=== PATIENT | female | born 1995 | race Caucasian/White ===

== ENCOUNTER 2020-01-01 05:29 | Outpatient (CLI) | payer BC, SELFPAY ==
[2020-01-01 19:19] LABS: SARS-CoV-2 RNA PCR Negative
== END 2020-01-01 05:30 | disposition home or self-care (01) ==
LOC: ANHCOVIDDT 05:30
PROVIDERS: Visit Provider Obstetrics & Gynecology
DX: Z20.828 Contact with and (suspected) exposure to other viral communicable diseases (principal)
CPT/HCPCS: C9803; U0003

== ENCOUNTER 2020-01-02 04:11 | Day surgery (SDC) | payer BC, SELFPAY ==
--- NOTE | 2019-12-31 19:21 | HP_ITS ---
DATE OF SERVICE: 01/02/2020 HISTORY OF PRESENT ILLNESS: The patient is 24 years old G2, P1-0-0-1 at 10 weeks' gestation who came in for a routine early ultrasound last week who was found to have an 8-week 4-day fetus with no heart rate. She was counseled about options at that point and she is wanting to have a repeat ultrasound to confirm, which was done on December 30, which showed an 8-week 3-day fetus with no heart rate. She has had no bleeding since her periods, has no pain. No other complaints. MEDICAL HISTORY: History of preeclampsia with her 1st child. Otherwise, no medical history. MEDICATIONS: No current medications. ALLERGIES: NO KNOWN DRUG ALLERGIES. PAST SURGICAL HISTORY: x1. SOCIAL HISTORY: Negative for tobacco or drug use. She occasionally drinks alcohol. REVIEW OF SYSTEMS: Negative. PHYSICAL EXAMINATION: VITAL SIGNS: Her weight is 202 pounds. Blood pressure 118/79. GENERAL: No apparent distress. HEART: Regular rate and rhythm. LUNGS: Clear to auscultation. ABDOMEN: Soft, nontender, nondistended. She is nontender with no edema. PELVIC EXAM: Uterus is mildly enlarged, nontender, mobile, smooth. Adnexa nontender with no palpable mass. ASSESSMENT AND PLAN: Missed . She was counseled about options including expectant management, medical induction of miscarriage or surgical evacuation of the uterus. She opted and signed consent for suction, dilation and curettage after the risks, benefits, complications, and alternatives were discussed. Her blood type is A positive, so she does not need RhoGAM. D I MT: Enrique
[2020-01-01 08:43] VITALS: BMI 37.8
--- NOTE | 2020-01-02 08:38 | WPDANESEPPF ---
Anes - Initial Pre Proc Eval Procedure: Operation Date: 01/02/20 10:00 Proposed Procedures p Suction Dilation And Curettage - Fidelia Mansfield MD Date/Time: 01/02/20 08:38 Surgeon: Fidelia Mansfield MD Pre Op Diagnosis: Missed Patient Data Age: 24 Gender: F Height: 5 ft 1 in Weight: 90.72 kg Allergies Allergy/AdvReac Type Severity Reaction Status Date / Time No Known Allergies Allergy Verified 01/01/20 08:43 Home Medications Medication Instructions Recorded Confirmed Type No Home Medications 01/01/20 01/01/20 History Laboratory Tests 01/01/20 09:50 SARS-CoV-2 RNA (RT-PCR) Negative Patient hx anesthesia problems: none Family hx anesthesia problems: none PMFSH Social History Social History Smoking status: Never smoker Spiritual care concerns: No Anes - Eval Final PreProcedure Day of Procedure 01/02/20 08:38 Patient weight: obese Heart: regular rate and rhythm Lungs: clear to auscultation Airway: Mallampati scale class II Neurological: alert and oriented Last oral intake: >/= 8 hours ASA classification: II Emergent: no Anesthetic plan: proceed Anesthesia type and monitoring: general GIVS and standard monitoring Informed Consent: The patient's anesthetic plan and its attendant risks and benefits were discussed with the patient/family/POA. Questions were solicited and answers provided to the satisfaction of the patient/family/POA.
[2020-01-02] MEDS: LACTATED RINGERS 1,000 ML 30 ML IV CONT (08:45)
--- NOTE | 2020-01-02 09:55 | WPDHPUPDATE1 ---
History and Physical Update Update Date/Time: 01/02/20 09:55 History and Physical has been reviewed, including an updated exam of the patient. There are NO changes in the patient's condition. Risks, benefits, and alternatives have been discussed and questions answered. Patient agrees to proceed with procedure.
--- NOTE | 2020-01-02 10:04 | PM.OP ---
Procedure Note - Brief Procedure Note - Brief Date of procedure: 01/02/20 Pre-op diagnosis: Missed Post-op diagnosis: same Procedure performed: Suction D&C Anesthesia: MAC Surgeon: Fidelia Mansfield MD Estimated blood loss (mL): 200 Drains: No Packing: No Pathology: yes Complications: No immediate complications Condition: stable Disposition: PACU Findings: Moderate amounts POCs
[2020-01-02] MEDS: KETOROLAC 30 MG/ML VIAL (*BKC) IV PUSH (10:06)
[2020-01-02 10:27] VITALS: BP 123/51; PULSE 84; RESP 20; O2SAT 99
[2020-01-02 10:50] VITALS: BP 106/64; PULSE 53; RESP 20
[2020-01-02 11:15] VITALS: BP 113/57; PULSE 82; RESP 18
--- NOTE | 2020-01-02 12:05 | OP_ITS ---
DATE OF PROCEDURE: 01/02/2020 PREOPERATIVE DIAGNOSIS: Missed . POSTOPERATIVE DIAGNOSIS: Missed . PROCEDURE PERFORMED: Suction dilation and curettage. ANESTHESIA: Conscious sedation. ESTIMATED BLOOD LOSS: 200 mL. COMPLICATIONS: None. FINDINGS: Moderate amounts of products of conception. Normal cervix and vagina. INDICATIONS: A 24-year-old, G2, P 1-0-0-1 at approximately 10 weeks' gestation came in last week for a routine early ultrasound and was found to have an 8-week 4-day fetus with no heart rate. She wanted to have the ultrasound repeated, which was done on December 30 and still showed an 8-week 3-day fetus with no heart rate. She was given options including expectant management, medication, or surgical evacuation of the uterus. She opted and signed consent for D and C after the risks, benefits, complications, and alternatives were discussed. DESCRIPTION OF PROCEDURE: She was taken to the operating room where she was sedated and placed in the dorsal lithotomy position. A speculum was placed and then, anterior lip of the cervix was grasped with a single-tooth tenaculum. The cervix was dilated to allow passage of a #9 curved suction curette. Several passes were made to evacuate the contents of the uterus. A sharp curettage was done once to loosen any further tissue and another pass was made with the suction curette with no tissue and minimal blood obtained. The tenaculum was removed from the cervix. Both tenaculum sites were bleeding slightly so pressure was held with ring forceps and Allis clamp until excellent hemostasis was assured. All instruments were then removed from the vagina. She tolerated the procedure well. Sponge, lap, and instrument counts were correct x2 and she was taken to the recovery room in stable condition. D I MT: [facility]
== END 2020-01-02 11:30 | disposition home or self-care (01) ==
PROVIDERS: Visit Provider Obstetrics & Gynecology
PROC: (CPT 59820; principal; 2020-01-02 10:00)
DX: O02.1 Missed abortion (principal)
CPT/HCPCS: 59820; 87635; 88305; C9803; J1885; J2250; J2704; J3010; J7120; U0003

== ENCOUNTER 2021-02-25 09:43 | Outpatient (CLI) | payer BC, SELFPAY ==
--- NOTE | ~2021-02-25 | US_ITS ---
EXAMINATION: US OB <=14 wk fetus w TV DATE: 02/25/2021 10:39 INDICATION: Establish viability and dating of first trimester TECHNIQUE: Real-time pelvic ultrasound utilizing both a transvaginal and transabdominal probe was pe rformed. The interpreting radiologist was not present for the study. COMPARISON: None. FINDINGS: The uterus measures 11.0 x 6.2 x 5.4 cm. There is an intrauterine gestational sac. A yolk sac and fe kaleb pole are identified. The crown rump length measures 7 mm, which correlates with an estimated gest ational age of 6 weeks and 4 days. heart motion is identified measuring 138 beats per minute (b pm) by M-mode Doppler. The right ovary measures 3.7 x 2.6 x 2.2 cm. Thick-walled centrally anechoic 1.9 cm corpus luteum cys t in the right ovary. A few additional anechoic cysts in the right ovary, the largest measuring 1.8 c m with subtle internalThe echoes suggesting the internal lacelike pattern of a hemorrhagic cyst. Left ovary measures 2.9 x 1.7 x 1.9 cm. Vascular flow with arterial waveforms identified in both ovaries on color Doppler. There is no free fluid in the pelvis. IMPRESSION: 1. Single living fetus with heart rate of 138 bpm. 2. Gestational age by ultrasound of 6 weeks 4 day(s) +/- 4 day(s) with ultrasound estimated date of delivery (NORMA) of 10/17/2021. Reviewed, dictated and finalized at location B. IMPRESSION: 1. Single living fetus with heart rate of 138 bpm. 2. Gestational age by ultrasound of 6 weeks 4 day(s) +/- 4 day(s) with ultraso und estimated date of delivery (NORMA) of 10/17/2021.
== END 2021-02-25 09:44 | disposition home or self-care (01) ==
PROVIDERS: Visit Provider Obstetrics & Gynecology
DX: O20.0 Threatened abortion (principal); Z3A.01 Less than 8 weeks gestation of pregnancy
CPT/HCPCS: 76801; 76817

== ENCOUNTER 2021-03-27 15:17 | Outpatient (CLI) | payer SELFPAY ==
--- NOTE | ~2021-03-27 | US_ITS ---
EXAMINATION: US OB <= 14 weeks fetus DATE: 03/27/2021 15:51 INDICATION: One day of vaginal spotting during first trimester of TECHNIQUE: Real-time pelvic ultrasound utilizing both a transvaginal and transabdominal probe was pe rformed. The interpreting radiologist was not present for the study. COMPARISON: None. FINDINGS: The uterus measures 12.3 x 8.8 x 6.7 cm. There is an intrauterine gestational sac. A yolk sac and fe kaleb pole are identified. The crown rump length measures 4.1 cm, which correlates with an estimated ge stational age of 11 weeks and 0 days. heart motion is identified measuring 175 beats per minute (bpm) by M-mode Doppler. The right and left ovaries are not visualized. There is no free fluid in the pelvis. IMPRESSION: 1. Single living fetus with heart rate of 175 bpm. 2. Markham-rump length of 4.1 cm which is concordant within one day of the previously estimated gestati onal age by ultrasound of 10 weeks 6 day(s) with ultrasound estimated date of delivery (NORMA) of 2019 based upon earliest ultrasound performed at this institution on 02/25/2021. Reviewed, dictated and finalized at location A. IMPRESSION: 1. Single living fetus with heart rate of 175 bpm. 2. Markham-rump length of 4.1 cm which is concordant within one day of the previo usly estimated gestational age by ultrasound of 10 weeks 6 day(s) with ultrasou nd estimated date of delivery (NORMA) of 10/18/2019 based upon earliest ultrasound performed at this institution on 02/25/2021.
== END 2021-03-27 15:18 | disposition home or self-care (01) ==
LOC: ANHIMG 15:20
PROVIDERS: PCP Internal Medicine; Visit Provider Obstetrics & Gynecology
DX: O20.0 Threatened abortion (principal); Z3A.00 Weeks of gestation of pregnancy not specified
CPT/HCPCS: 76801

== ENCOUNTER 2021-03-31 10:14 | Outpatient (CLI) | payer BC, SELFPAY ==
[2021-03-31 18:23] LABS: Basophils Percent Auto 0.3 % (0.2-1.2); Eosinophils Absolute Auto 0.2 K/mm3 (0-0.3); Eosinophils Percent Auto 1.8 % (0-4.4); Hemoglobin 10.6 g/dL (12.0-15.0); Immature Granulocyte Absolute 0.02 K/mm3 (0.00-0.031); Immature Granulocyte Percent A 0.2 % (0-0.5); Lymphocytes Percent Auto 28.8 % (18.3-44.2); Mean Corpuscular HGB Conc 32.1 g/dl (32-36); Mean Corpuscular Hemoglobin 29.3 pg (26-34); Mean Corpuscular Volume 91.2 fl (80-100); Mean Platelet Volume 12.2 fl (7.4-10.4); Monocytes Absolute Auto 0.8 K/mm3 (0.1-0.6); Monocytes Percent Auto 8.3 % (2.6-8.5); Neutrophils Absolute Auto 5.5 K/mm3 (1.3-6.7); Neutrophils Percent Auto 60.6 % (45.5-73.1); Platelet Count Result 298 k/mm3 (150-375); Red Blood Count 3.62 M/mm3 (4.2-5.4); Red Cell Distribution Width 16.8 % (11.5-14.5)
[2021-03-31 18:47] LABS: Vitamin D 25 Hydroxy 14.9 ng/mL
[2021-03-31 18:50] LABS: Add Urine Microscopic? YES; Appearance Urine Clear (Clear); Bacteria Urine Trace /hpf; Bilirubin Urine Negative (Negative); Blood Urine Negative (Negative); Calcium Oxalate Crystals Urine Present /hpf; Color Urine Yellow (Yellow); Glucose Urine UA Negative (Negative); Ketones Urine Negative (Negative); Leukocyte Esterase Ur Negative LEU/UL (NEGATIVE); Mucus Urine Few /lpf; Nitrate Urine Negative (Negative); Protein Urine 1+ mg/dL (Negative); Specific Grav Ur 1.026 (1.001-1.035); Squamous Epithelial Cell Urine Many /hpf (Few); Urobilinogen Urine Negative mg/dL (<2.0); WBC Urine 0-3 /hpf (0-3)
[2021-03-31 19:05] LABS: Hepatitis B Surface Antigen Negative (Negative); Rubella IgG Antibody 5.1 IU/ML
[2021-03-31 19:13] LABS: HIV 1/2 Ab P24 Ag Result Negative (Negative)
[2021-03-31 19:20] LABS: Hepatitis C Virus Antibody Negative (Negative)
[2021-04-01 07:50] LABS: Rapid Plasma Reagin Non-Reactive (NonReactive)
[2021-04-05 10:40] LABS: Hematocrit 31.9 % (35.0-45.0); Hemoglobin 10.9 g/dL (11.7-15.5); MCV 93.5 fL (80.0-100.0); RDW 17.2 % (11.0-15.0); Red Blood Cell Count 3.41 Mill/uL (3.80-5.10)
== END 2021-03-31 10:15 | disposition home or self-care (01) ==
PROVIDERS: Visit Provider Obstetrics & Gynecology
DX: Z34.91 Encounter for supervision of normal pregnancy, unspecified, first trimester (principal); Z3A.11 11 weeks gestation of pregnancy
CPT/HCPCS: 36415; 81001; 82306; 83021; 84443; 85025; 86592; 86703; 86762; 86787; 86803; 86850; 86900; 86901; 87077; 87086; 87088; 87186; 87340; G0432

== ENCOUNTER 2021-04-13 10:13 | Outpatient (CLI) | payer SELFPAY ==
--- NOTE | ~2021-04-13 | US_ITS ---
EXAMINATION: US OB <= 14 weeks fetus DATE: 04/13/2021 10:56 INDICATION: Threatened . TECHNIQUE: Real-time transabdominal and transvaginal pelvic ultrasound was performed. COMPARISON: Ultrasound 03/27/2021 FINDINGS: EXAMINATION: US OB <= 14 weeks fetus DATE: 04/13/2021 10:56 INDICATION: Threatened . TECHNIQUE: Real-time transabdominal ultrasound of the pelvis was performed. COMPARISON: ultrasound 03/27/21, 02/25/21 FINDINGS: There is a single living fetus in breech presentation. The placenta is anterior. heart rate is 158 beats per minute (bpm). The amniotic fluid volume is subjectively normal. The right ovary measur es 3.3 x 2.6 x 2.4 cm. The left ovary is not visualized. The following biometric data were obtained: [place]-rump length (CRL): 7.7 cm; biparietal diameter (BPD): 2.6 cm; femur length (FL): 1.1 cm. These measurements are concordant. As single measurements, these parameters are each equal to the following estimated gestational ages: CRL: 13 weeks 5 days. BPD: 14 weeks 3 days. FL: 13 weeks 1 days. estimated gestational age based solely on measurements from this exam is 13 weeks 5 days +/- 1 weeks 0 days. IMPRESSION: 1. Single living fetus in breech presentation. 2. Estimated date of delivery of 10/17/2021 based on the ultrasound from 02/25/2021. Reviewed, dictated and finalized at location A. IMPRESSION: 1. Single living fetus in breech presentation. 2. Estimated date of delivery of 10/17/2021 based on the ultrasound from 021.
== END 2021-04-13 10:14 ==
PROVIDERS: Visit Provider Obstetrics & Gynecology
DX: O20.0 Threatened abortion (principal); Z3A.13 13 weeks gestation of pregnancy
CPT/HCPCS: 76801

== ENCOUNTER 2021-05-18 10:47 | Outpatient (CLI) | payer OTHER, SELFPAY ==
--- NOTE | ~2021-05-18 | US_ITS ---
US OB /maternal detail DATE: 05/18/2021 12:07 INDICATION: anatomy screen TECHNIQUE: Real-time imaging and Doppler analysis COMPARISON: 04/13/2021 obstetrical ultrasound FINDINGS: Live barrow intrauterine gestation, fetus in transverse lie and variable position during the examination. Anterior placenta, lower margin 5 cm above the internal os. Cervical length measures 3.0 cm. Subjectively normal amount of amniotic fluid. No cerebral ventriculomegaly. The cerebellum appears normal. Normal nuchal fold. sp ine appears intact. The diaphragm appears normal. heart rate of 159 bpm. Four-chamber fet al heart with normal left and right ventricular outflow tracts. Three vessel umbilical cord with nor mal appearing insertion at abdominal wall. No hydronephrosis. Fluid is demonstrated in stomac h and urinary bladder. BPD 4.48 cm; 19 weeks 4 days Head circumference 17.19 cm; 19 weeks 5 days Abdominal circumference 14.72 cm; 20 weeks Femur length 2.85 cm; 18 weeks 5 days Composite age by Hadlock formula: 19 weeks 4 days +/- 1 week 3 days. NORMA is 10/08/2021. Femur length/head circumference 16.57, within normal range of 16.50-90.16 Head circumference/abdominal circumference 1.17, within normal range of 1.08, 101.26 IMPRESSION: Normal anatomy screen Reviewed, dictated and finalized at Location A. Reviewed, dictated and finalized at location A. ATING MACHINE TYPIST IMPRESSION: Normal anatomy screen
== END 2021-05-18 10:48 | disposition home or self-care (01) ==
LOC: ANHIMG 10:48
PROVIDERS: PCP Internal Medicine; Visit Provider Obstetrics & Gynecology
DX: Z36.3 Encounter for antenatal screening for malformations (principal)
CPT/HCPCS: 76805

== ENCOUNTER 2021-05-25 11:45 | Outpatient (CLI) | payer OTHER, SELFPAY ==
[2021-05-25 19:46] LABS: Free T4 Free Thyroxine 0.79 ng/mL (0.78-2.19)
== END 2021-05-25 11:46 | disposition home or self-care (01) ==
LOC: ANHBWCLAB 11:46
PROVIDERS: PCP Internal Medicine; Visit Provider Obstetrics & Gynecology
DX: L65.9 Nonscarring hair loss, unspecified (principal)
CPT/HCPCS: 36415; 84439; 84443

== ENCOUNTER 2021-06-12 09:12 | Observation (INO) | payer OTHER, SELFPAY ==
[2021-06-12 09:38] VITALS: BP 114/59; PULSE 97
--- NOTE | 2021-06-12 09:56 | OBADM ---
This patient, Aliyah Will, admitted to the OB room OB Post 116 for observation. Patient is oriented to hospital policies and general routines including ID bracelet, bed and alarms, pain management, procedures, bathroom and other care routines, personal items, smoking policy, room service/diet, call light and visiting hours. Patient is encouraged to report perceived risks to care and to ask questions if she does not understand what she is told or what she should do.
[2021-06-12 09:58] VITALS: BMI 40.6
[2021-06-12 09:59] LABS: Add Urine Microscopic? NO; Appearance Urine Clear (Clear); Bilirubin Urine Negative (Negative); Blood Urine Negative (Negative); Color Urine Yellow (Yellow); Glucose Urine UA Negative (Negative); Ketones Urine Negative (Negative); Leukocyte Esterase Ur Negative LEU/UL (NEGATIVE); Nitrate Urine Negative (Negative); Protein Urine Negative (Negative); Urobilinogen Urine Negative mg/dL (<2.0)
--- NOTE | 2021-07-09 17:35 | PM.OBTRLD ---
OB - Triage/Final Diagnosis Visit Information Comments/Additional reasons for admission: I have assessed the risk for this patient, Aliyah Will, and determined that she would benefit from observation care. Evaluation Laboratory results: Laboratory Tests 06/12/21 09:49 Urine Color Yellow Urine Appearance Clear Urine pH 7.0 Ur Specific Hewett 1.020 Urine Protein Negative Urine Glucose (UA) Negative Urine Ketones Negative Ur Blood (Man) Negative Urine Nitrate Negative Urine Bilirubin Negative Urine Urobilinogen Negative Ur Leukocyte Esterase Negative Final Diagnosis (1) Back pain affecting : Code(s): O99.891 - Other specified diseases and conditions complicating ; M54.9 - Dorsalgia, unspecified Status: Acute
== END 2021-06-12 10:47 | disposition home or self-care (01) ==
PROVIDERS: Admitting Provider Student in an Organized Health Care Education/Training Program; PCP Internal Medicine; Visit Provider Student in an Organized Health Care Education/Training Program
DX: O99.891 Other specified diseases and conditions complicating pregnancy (principal); M54.9 Dorsalgia, unspecified; Z3A.22 22 weeks gestation of pregnancy
CPT/HCPCS: 81003; 87086; G0378; G0379

== ENCOUNTER 2021-07-22 10:50 | Outpatient (CLI) | payer OTHER, SELFPAY ==
[2021-07-22 20:06] LABS: Hematocrit 30.7 % (37.0-47.0); Hemoglobin 9.9 g/dL (12.0-15.0); Mean Corpuscular HGB Conc 32.2 g/dl (32-36); Mean Corpuscular Hemoglobin 29.3 pg (26-34); Mean Corpuscular Volume 90.8 fl (80-100); Mean Platelet Volume 11.1 fl (7.4-10.4); Platelet Count Result 323 k/mm3 (150-375); Red Blood Count 3.38 M/mm3 (4.2-5.4); Red Cell Distribution Width 14.1 % (11.5-14.5); White Blood Count 9.8 K/mm3 (4.5-10.0)
[2021-07-22 20:19] LABS: Glucose 1 Hour PP 50gm Dose 193 mg/dL
== END 2021-07-22 10:51 | disposition home or self-care (01) ==
PROVIDERS: Visit Provider Student in an Organized Health Care Education/Training Program
DX: Z34.92 Encounter for supervision of normal pregnancy, unspecified, second trimester (principal); Z3A.27 27 weeks gestation of pregnancy
CPT/HCPCS: 36415; 82947; 85027

== ENCOUNTER 2021-07-29 09:54 | Outpatient (CLI) | payer OTHER, SELFPAY ==
[2021-07-29 10:39] LABS: Glucose Fasting Gestational 94 mg/dL (>/=95)
[2021-07-29 12:16] LABS: Glucose 1 Hour Gest 219 mg/dL (>/=180)
[2021-07-29 14:20] LABS: Glucose 2 Hour Gest 187 mg/dL (>/= 155)
[2021-07-29 14:53] LABS: Glucose 3 Hour Gest 122 mg/dL (>/=140)
== END 2021-07-29 09:55 | disposition home or self-care (01) ==
LOC: ANHLAB 09:56
PROVIDERS: PCP Internal Medicine; Visit Provider Student in an Organized Health Care Education/Training Program
DX: R73.09 Other abnormal glucose (principal)
CPT/HCPCS: 36415; 82951; 82952

== ENCOUNTER 2021-08-11 08:00 | Outpatient (RCR) | payer OTHER, SELFPAY ==
[2021-08-11 07:47] VITALS: BMI 42.6
[2021-08-11 07:49] VITALS: BMI 42.6
== END 2021-10-14 14:25 | disposition home or self-care (01) ==
LOC: ANHDMC 08:00
PROVIDERS: PCP Internal Medicine; Visit Provider Obstetrics & Gynecology
DX: O24.419 Gestational diabetes mellitus in pregnancy, unspecified control (principal); Z71.89 Other specified counseling; Z71.3 Dietary counseling and surveillance
CPT/HCPCS: 97802; G0108

== ENCOUNTER 2021-08-12 11:03 | Outpatient (CLI) | payer OTHER, SELFPAY ==
[2021-08-12 20:44] LABS: HIV 1/2 Ab P24 Ag Result Negative (Negative)
[2021-08-13 06:08] LABS: Rapid Plasma Reagin Non-Reactive (NonReactive)
== END 2021-08-12 11:04 | disposition home or self-care (01) ==
PROVIDERS: PCP Internal Medicine; Visit Provider Obstetrics & Gynecology
DX: Z34.92 Encounter for supervision of normal pregnancy, unspecified, second trimester (principal); Z3A.23 23 weeks gestation of pregnancy
CPT/HCPCS: 36415; 86592; 86703; G0432

== ENCOUNTER 2021-08-24 02:01 | Outpatient (CLI) | payer OTHER, SELFPAY ==
[2021-08-24 02:18] VITALS: BP 130/68; PULSE 86
[2021-08-24 02:48] VITALS: BP 130/68
== END 2021-08-24 02:47 | disposition home or self-care (01) ==
LOC: ANHOBOP 02:04 → ANHOBPP 02:09
PROVIDERS: PCP Internal Medicine; Visit Provider Obstetrics & Gynecology
DX: Z34.83 Encounter for supervision of other normal pregnancy, third trimester (principal); Z3A.39 39 weeks gestation of pregnancy
CPT/HCPCS: 59025; 84112; 99199

== ENCOUNTER 2021-09-22 10:49 | Outpatient (RCR) | payer OTHER, SELFPAY ==
--- NOTE | 2021-07-20 01:52 | PC.NURSE ---
2008- Called Dr. Larry- pt came in c/o DFM since 2am. she states that she last felt baby at 2am and went to sleep until 3pm today. 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 pt hasn't eaten or drank since waking up. FHT reviewed. pt feeling baby move alot and audible on monitor after eating and drinking. order to d/c home with instructions on importance of fluid intake and good nutrition. pt to f/u at regular scheduled appt on with Dr. Mansfield or back here is further concerns.
[2021-08-18 10:58] VITALS: BP 111/67; PULSE 91
[2021-08-25 13:15] VITALS: BP 123/58; PULSE 87
[2021-09-01 09:49] VITALS: BP 136/65; PULSE 90
--- NOTE | 2021-09-01 10:39 | PC.NURSE ---
Dr. Mansfield informed pt hasn't felt as much movement since yesterday. NST was reactive and BPP was 8/8 with subjectively normal amount of amniotic fluid. Pt did feel some movement while in U/S and has felt 2 movements in the last 5 mins. OK to discharge pt to home with instructions that if she should have any further decrease in movement to return to L&D. Pt verbalizes understanding.
[2021-09-08] MEDS: TETANUS,DIPHTHERIA,AC PERTUSSIS ADULT (0.5 ML) BOOSTRIX IM (11:45)
[2021-09-08 12:09] VITALS: BP 128/67; PULSE 94
[2021-09-15 12:30] VITALS: BP 123/53; PULSE 90
--- NOTE | ~2021-09-22 | US_ITS ---
EXAMINATION: US OB follow up w BPP DATE: 09/08/2021 12:26 INDICATION: Gestational diabetes, biophysical profile and growth assessment during third trimes ter TECHNIQUE: Real-time pelvic ultrasound was performed. The interpreting radiologist was not present fo r the study. COMPARISON: None. FINDINGS: There is a single living fetus in vertex presentation. The placenta is anterior. heart rate is 155 beats per minute (bpm). The amniotic fluid index is 13.4 cm which is normal (normal range: 8.1 cm to 24.8 cm). Biophysical profile performed by the technologist: breathing (30 sec sustained breathing in 30 minutes): 2 out of 2 movement (3 gross body movements in 30 minutes): 2 out of 2 tone (one episode of imkenkj-tkzybiumy-hjnjnnm limb movement): 2 out of 2 Amniotic fluid pocket (2 cm): 2 out of 2 Total score: 8 out of 8 The following biometric data were obtained: Biparietal diameter (BPD): 9.1 cm; head circumference (HC): 32.3 cm; abdominal circumference (AC): 32 .2 cm; femur length (FL): 6.5 cm. The femoral length to abdominal circumference ratio is greater than two standard deviations below the mean These measurements are otherwise concordant. Estimated weight is 2887 g +/- 433 g, which correlates with the 86th percentile when 10/15/2021 is used as estimated date of delivery. As single measurements, these parameters are each equal to the following estimated gestational ages w ith ranges of +/- 2 standard deviations: BPD: 37 weeks 0 days +/- 3 weeks 1 days. HC: 36 weeks 4 days +/- 2 weeks 5 days. AC: 37 weeks 1 days +/- 3 weeks 0 days. FL: 33 weeks 5 days +/- 3 weeks 0 days. estimated gestational age based solely on measurements from this exam is 36 weeks 1 days +/- 2 weeks 4 days. IMPRESSION: 1. Single living fetus in vertex presentation. 2. Biophysical profile 8 out of 8. 3. Normal amniotic fluid index. 4. Estimated weight is 2887 g +/- 433 g, which correlates with the 86th percentile when 10/16/19 22 is used as estimated date of delivery. 5. Femoral length to abdominal circumference ratio is within two standard deviations below the mean. Reviewed, dictated and finalized at location B. HAIRER IMPRESSION: 1. Single living fetus in vertex presentation. 2. Biophysical profile 8 out of 8. 3. Normal amniotic fluid index. 4. Estimated weight is 2887 g +/- 433 g, which correlates with the 86th p ercentile when 10/15/2021 is used as estimated date of delivery. 5. Femoral length to abdominal circumference ratio is within two standard devia tions below the mean.
--- NOTE | ~2021-09-22 | US_ITS ---
EXAMINATION: US OB limited w BPP DATE: 09/15/2021 12:15 INDICATION: Gestational diabetes during third trimester . Assess amniotic fluid index. TECHNIQUE: Real-time pelvic ultrasound was performed. The interpreting radiologist was not present fo r the study. COMPARISON: 09/08/2021 FINDINGS: There is a single living fetus in vertex presentation. The placenta is anterior. heart rate is 141 beats per minute (bpm). Amniotic fluid index of 16.4 cm which is normal. (5th%-95%: 7.9-24.9 cm at 35 weeks estimated gestational age). Biophysical profile performed by the technologist: breathing (30 sec sustained breathing in 30 minutes): 2 out of 2 movement (3 gross body movements in 30 minutes): 2 out of 2 tone (one episode of brxrgvg-dlkdcaugd-settpfs limb movement): 2 out of 2 Amniotic fluid pocket (2 cm): 2 out of 2 Total score: 8 out of 8 IMPRESSION: 1. Single living fetus in vertex presentation with heart rate of 141 bpm. 2. Biophysical profile 8 out of 8. 3. Normal amniotic fluid index of 16.4 cm. Reviewed, dictated and finalized at location A.
--- NOTE | ~2021-09-22 | US_ITS ---
EXAMINATION: US OB BPP wo non-stress EXAM DATE: 09/01/2021 10:22 INDICATION: GDM 3rd trimester. TECHNIQUE: Pelvic obstetrical transabdominal sonogram was performed by a technologist. There are mu ltiple grayscale and Doppler images available for interpretation. Comparison is made to prior examina tion from 08/25/2021. FINDINGS: There is a single fetus identified in vertex presentation with a heart rate of 159 beats pe r minute. The placenta is located in the anterior position. There is no sonographic evidence of retr oplacental hemorrhage identified. There is subjectively expected amount of amniotic fluid. BIOPHYSICAL PROFILE (performed by the technologist) breathing (30 sec sustained breathing in 30 minutes): 2 out of 2 movement (3 gross body movements in 30 minutes): 2 out of 2 tone (one episode of rxzirqd-cnfmcdxap-lyhxhvg limb movement): 2 out of 2 Amniotic fluid pocket (2 cm): 2 out of 2 Total score: 8 out of 8 IMPRESSION: 1. Single fetus with heart rate of 159 bpm. 2. Normal biophysical profile score of 8 out of 8. Reviewed, dictated and finalized at location B. NER TRANSPORT TECHNICIAN
--- NOTE | ~2021-09-22 | US_ITS ---
EXAMINATION: US OB follow up w BPP DATE: 08/18/2021 10:46 INDICATION: Gestational diabetes, third trimester TECHNIQUE: Real-time pelvic ultrasound was performed. The interpreting radiologist was not present fo r the study. COMPARISON: None. FINDINGS: There is a single living fetus in vertex presentation. The placenta is anterior. heart rate is 140 beats per minute (bpm). The amniotic fluid index is 11 cm which is normal. Biophysical profile performed by the technologist: breathing (30 sec sustained breathing in 30 minutes): 2 out of 2 movement (3 gross body movements in 30 minutes): 2 out of 2 tone (one episode of xxzcato-shkumyjco-oxpqvix limb movement): 2 out of 2 Amniotic fluid pocket (2 cm): 2 out of 2 Total score: 8 out of 8 The following biometric data were obtained: Biparietal diameter (BPD): 8.1 cm; head circumference (HC): 29.3 cm; abdominal circumference (AC): 30 .9 cm; femur length (FL): 6.3 cm. These measurements are concordant. Estimated weight is 2278 g +/- 341 g, which correlates with the 95th percentile when 10/15/2021 is used as estimated date of delivery. As single measurements, these parameters are each equal to the following estimated gestational ages w ith ranges of +/- 2 standard deviations: BPD: 32 weeks 4 days +/- 3 weeks 1 days. HC: 32 weeks 6 days +/- 3 weeks 0 days. AC: 34 weeks 6 days +/- 3 weeks 0 days. FL: 32 weeks 4 days +/- 3 weeks 0 days. estimated gestational age based solely on measurements from this exam is 33 weeks 2 days +/- 2 weeks 2 days. IMPRESSION: 1. Single living fetus in vertex presentation. 2. Biophysical profile 8 out of 8. 3. Estimated weight is 2278 g +/- 341 g, which correlates with the 95th percentile when 10/16/19 22 is used as estimated date of delivery. 4. Normal amniotic fluid index. Reviewed, dictated and finalized at location A. ERER ELECTRONIC IMPRESSION: 1. Single living fetus in vertex presentation. 2. Biophysical profile 8 out of 8. 3. Estimated weight is 2278 g +/- 341 g, which correlates with the 95th p ercentile when 10/15/2021 is used as estimated date of delivery. 4. Normal amniotic fluid index.
--- NOTE | ~2021-09-22 | US_ITS ---
EXAMINATION: US OB limited w BPP DATE: 08/25/2021 13:27 BOTTOM STAINER INDICATION: Gestational diabetes. TECHNIQUE: Real-time transabdominal obstetric ultrasound. FINDINGS: Ultrasound dated 08/18/2021 There is a single living fetus in vertex presentation. The placenta is anterior without placenta pre via. cardiac activity and movement is noted with a heart rate of 138 beats per minute. Biophysical profile: breathin of 2 movement: 2 of 2 tone: 2 of 2 Amniotic flud pocket: 2 of 2 Total score: 2 of 8 ROHAN is normal measuring 12.6 cm. IMPRESSION: 1. Single living intrauterine in vertex presentation. 2: Total biophysical profile score of 8/8. Reviewed, dictated and finalized at location B. OM STAINER
--- NOTE | ~2021-09-22 | US_ITS ---
EXAMINATION: US OB limited w BPP DATE: 09/22/2021 12:13 INDICATION: Gestational diabetes during third trimester TECHNIQUE: Real-time pelvic ultrasound was performed. The interpreting radiologist was not present fo r the study. COMPARISON: None. FINDINGS: There is a single living fetus in vertex presentation. The placenta is anterior. heart rate is 148 beats per minute (bpm). The amniotic fluid index is 9.1 cm which is normal (normal range: 7.7 cm to 24.9 cm). Biophysical profile performed by the technologist: breathing (30 sec sustained breathing in 30 minutes): 2 out of 2 movement (3 gross body movements in 30 minutes): 2 out of 2 tone (one episode of euswpsn-ixwscsuol-uydcneh limb movement): 2 out of 2 Amniotic fluid pocket (2 cm): 2 out of 2 Total score: 8 out of 8 IMPRESSION: 1. Single living fetus in vertex presentation. 2. Biophysical profile 8 out of 8. 3. Normal amniotic fluid index. Reviewed, dictated and finalized at location B.
[2021-09-22 11:27] LABS: Basophils Percent Auto 0.2 % (0.2-1.2); Eosinophils Absolute Auto 0.1 K/mm3 (0-0.3); Eosinophils Percent Auto 1.3 % (0-4.4); Hemoglobin 10.2 g/dL (12.0-15.0); Immature Granulocyte Absolute 0.03 K/mm3 (0.00-0.031); Immature Granulocyte Percent A 0.3 % (0-0.5); Lymphocytes Absolute Auto 2.31 K/mm3 (0.9-3.2); Lymphocytes Percent Auto 25.7 % (18.3-44.2); Mean Corpuscular HGB Conc 31.9 g/dl (32-36); Mean Corpuscular Hemoglobin 28.7 pg (26-34); Mean Corpuscular Volume 90.1 fl (80-100); Mean Platelet Volume 12.9 fl (7.4-10.4); Monocytes Absolute Auto 0.5 K/mm3 (0.1-0.6); Monocytes Percent Auto 5.4 % (2.6-8.5); Neutrophils Percent Auto 67.1 % (45.5-73.1); Platelet Count Result 198 k/mm3 (150-375); Red Blood Count 3.55 M/mm3 (4.2-5.4)
[2021-09-22 11:32] LABS: Alanine Aminotransferase 15 U/L (4-35); Albumin Level 3.4 g/dL (3.5-5.1); Alkaline Phosphatase 128 U/L (38-126); Anion Gap 6 mmol/L (8-16); Aspartate Amino Transferase 23 U/L (14-36); Bilirubin,Total < 0.1 mg/dL (0.2-1.3); Blood Urea Nitrogen 14 mg/dL (7-17); Calcium 8.9 mg/dL (8.4-10.2); Carbon Dioxide 22 mmol/L (22-30); Chloride 107 mmol/L (98-107); Estimated Glomerular Filt Rate > 60; Glucose 130 mg/dL (65-110); Sodium 135 mmol/L (137-145); Uric Acid 6.3 mg/dL (2.5-7.5)
[2021-09-22 11:55] VITALS: BP 144/75; PULSE 103
[2021-09-22 12:54] LABS: Total Protein Urine Random 156 mg/dL
[2021-09-22 12:56] LABS: Add Urine Microscopic? YES; Appearance Urine Cloudy (Clear); Bacteria Urine Trace /hpf; Bilirubin Urine Negative (Negative); Blood Urine Negative (Negative); Color Urine Amber (Yellow); Glucose Urine UA Negative (Negative); Ketones Urine Negative (Negative); Leukocyte Esterase Ur Negative LEU/UL (NEGATIVE); Mucus Urine Heavy /lpf; Nitrate Urine Negative (Negative); Protein Urine 3+ mg/dL (Negative); Squamous Epithelial Cell Urine Moderate /hpf (Few); Urobilinogen Urine Negative mg/dL (<2.0)
[2021-09-22 13:01] LABS: Specific Grav Ur 1.034 (1.001-1.035)
[2021-09-22 13:32] LABS: Ur Ttl Prot Creatinine Ratio 0.46 mg/mg (0-0.20)
--- NOTE | 2021-09-22 13:40 | PC.NURSE ---
Reported labs and BPs to Dr. Mansfield. Will notify pt of induction on Monday. Pt may be discharged.
== END 2021-10-09 13:12 | disposition home or self-care (01) ==
LOC: ANHOBOP 10:49
PROVIDERS: PCP Internal Medicine; Visit Provider Obstetrics & Gynecology
DX: O36.8120 Decreased fetal movements, second trimester, not applicable or unspecified (principal); Z3A.27 27 weeks gestation of pregnancy; O24.419 Gestational diabetes mellitus in pregnancy, unspecified control; Z3A.31 31 weeks gestation of pregnancy; Z3A.32 32 weeks gestation of pregnancy; Z3A.33 33 weeks gestation of pregnancy; Z3A.34 34 weeks gestation of pregnancy; O36.63X0 Maternal care for excessive fetal growth, third trimester, not applicable or unspecified; Z3A.35 35 weeks gestation of pregnancy; O16.3 Unspecified maternal hypertension, third trimester; Z3A.36 36 weeks gestation of pregnancy
CPT/HCPCS: 36415; 59025; 76815; 76816; 76819; 80053; 81001; 82570; 84156; 84550; 85025; 87077; 87086; 87088; 87186; 90471; 90715

== ENCOUNTER 2021-09-29 05:00 | Inpatient (IN) | payer OTHER, SELFPAY ==
[2021-09-29] VITALS (56 sets, daily range): BP systolic 105–155; BP diastolic 53–125; PULSE 69–92; RESP 15–23; TEMP 36.7–37.2; O2SAT 96–100; BMI 31.1; BMI 53.3
[2021-09-29 05:52] LABS: Basophils Percent Auto 0.4 % (0.2-1.2); Eosinophils Absolute Auto 0.2 K/mm3 (0-0.3); Eosinophils Percent Auto 1.6 % (0-4.4); Hemoglobin 9.7 g/dL (12.0-15.0); Immature Granulocyte Absolute 0.05 K/mm3 (0.00-0.031); Immature Granulocyte Percent A 0.5 % (0-0.5); Lymphocytes Absolute Auto 3.15 K/mm3 (0.9-3.2); Lymphocytes Percent Auto 34.2 % (18.3-44.2); Mean Corpuscular HGB Conc 32.3 g/dl (32-36); Mean Corpuscular Hemoglobin 28.9 pg (26-34); Mean Corpuscular Volume 89.3 fl (80-100); Monocytes Absolute Auto 0.8 K/mm3 (0.1-0.6); Monocytes Percent Auto 8.6 % (2.6-8.5); Neutrophils Percent Auto 54.7 % (45.5-73.1); Platelet Count Result 185 k/mm3 (150-375); Red Blood Count 3.36 M/mm3 (4.2-5.4); Red Cell Distribution Width 15.9 % (11.5-14.5); White Blood Count 9.2 K/mm3 (4.5-10.0)
[2021-09-29 05:54] LABS: Alanine Aminotransferase 14 U/L (4-35); Albumin Level 3.1 g/dL (3.5-5.1); Alkaline Phosphatase 127 U/L (38-126); Anion Gap 5 mmol/L (8-16); Bilirubin,Total < 0.1 mg/dL (0.2-1.3); Blood Urea Nitrogen 15 mg/dL (7-17); Calcium 8.4 mg/dL (8.4-10.2); Carbon Dioxide 22 mmol/L (22-30); Chloride 107 mmol/L (98-107); Estimated CRCL calculation 158 ml/min; Estimated Glomerular Filt Rate > 60; Glucose 79 mg/dL (65-110); Potassium 4.1 mmol/L (3.4-5.0); Sodium 134 mmol/L (137-145)
[2021-09-29 05:56] LABS: Uric Acid 6.4 mg/dL (2.5-7.5)
[2021-09-29] MEDS: LACTATED RINGERS 1,000 ML 125 ML IV CONT (06:18)
[2021-09-29] MEDS: OXYTOCIN 30 UNITS/NS 500 ML 30 UNITS/500 ML BAG IV CONT (06:19)
[2021-09-29 06:28] LABS: Rapid Plasma Reagin Non-Reactive (NonReactive)
[2021-09-29 06:59] LABS: Aspartate Amino Transferase 23 U/L (14-36)
--- NOTE | 2021-09-29 07:59 | PM.IMHP ---
H&P: HPI History of Present Illness Date/Time: 09/29/21 07:59 at 37+6 with gestational HTN and h/o prior C section. She was admitted this morning with plan to induce labor for TOLAC, and now she is questioning whether she wants to attempt or proceed with repeat C section instead. No RASMUSSEN/visual changes. Occasional contractions. No complaints Chief Complaint: Gestational hypertension and gestational diabetes, previous section, 37+6 weeks Review of Systems Review of Systems: All systems reviewed & are unremarkable except as noted in HPI and below PMFSH Past Medical History Medical History Missed x1 Surgical History Surgical History H/O abdominal surgery exploratory History of dilation and curettage 01/01/2021 for MAB Previous section x1 Family History Family History Mother No pertinent family history Other Hypertension Social History Social History Smoking status: Never smoker Second hand tobacco smoke exposure: No Alcohol intake: former Substance use: never Spiritual care concerns: No Meds Home Medications and Allergies Home Medications Medication Instructions Recorded Confirmed Type ferrous sulfate 325 mg (65 mg 325 mg PO DAILY 04/29/21 09/22/21 History iron) tablet PNV cmb#95-ferrous fumarate-FA 1 tablet PO DAILY 08/18/21 09/22/21 History [] blood sugar diagnostic #100 ea 09/08/21 09/29/21 Rx diph,pertuss(acel),tet vac(PF) 0.5 ml IM ONCE #0.5 ml 09/08/21 09/29/21 Rx lancets 33 gauge #100 ea 09/08/21 09/29/21 Rx metformin 500 mg tablet 500 mg PO BID #60 tablet 09/08/21 09/22/21 Rx nitrofurantoin 100 mg PO Q12H 7 Days #14 cap 09/27/21 09/29/21 Rx monohydrate/macrocrystals 100 mg capsule Allergies Allergy/AdvReac Type Severity Reaction Status Date / Time No Known Allergies Allergy Verified 09/22/21 10:30 Vital Signs Vital Signs - 24 hr 09/29/21 05:35 09/29/21 05:46 09/29/21 06:01 Pulse Rate 77 79 86 Blood Pressure 128/73 138/77 127/93 H 09/29/21 06:16 09/29/21 06:31 09/29/21 06:46 Pulse Rate 87 81 87 Blood Pressure 146/84 H 154/88 H 142/88 H 09/29/21 07:01 09/29/21 07:16 09/29/21 07:31 Pulse Rate 82 83 81 Blood Pressure 155/87 H 149/97 H 105/56 L 09/29/21 07:46 Pulse Rate 79 Blood Pressure 135/77 Exam Const: General: healthy appearing, no acute distress, alert and awake Resp: Auscultation: clear to auscultation bilaterally Cardio: Rate: regular rate Rhythm: regular rhythm GI: Inspection: non-distended GI Palp: Yes Soft to palpation and No Tenderness to palpation present (GI) : Manual OB Exam: dilated fingertip, effaced 50% and station high Psych: Mental Status: mental status grossly normal H&P: Results Labs Labs: Short CBC 09/29/21 Range/Units 05:33 WBC 9.2 (4.5-10.0) K/mm3 Hgb 9.7 L (12.0-15.0) g/dL Hct 30.0 L (37.0-47.0) % Plt Count 185 (150-375) k/mm3 BMP 09/29/21 05:33 Sodium 134 L Potassium 4.1 Chloride 107 Carbon Dioxide 22 BUN 15 Creatinine 0.60 L Glucose 79 Calcium 8.4 Liver Function 09/29/21 Range/Units 05:33 Total Bilirubin < 0.1 L (0.2-1.3) mg/dL AST 23 (14-36) U/L ALT 14 (4-35) U/L Alkaline Phosphatase 127 H (38-126) U/L Albumin 3.1 L (3.5-5.1) g/dL Assessment and Plan Assessment and plan (1) Previous delivery affecting : Code(s): O34.219 - Maternal care for unspecified type scar from previous delivery Status: Acute Assessment and Plan: We discussed risks, benefits, complications, and alternatives of TOLAC and repeat C section. She now declines TOLAC/ and prefers to proceed with repeat C section. She signed
--- NOTE | 2021-09-29 08:08 | WPDHPUPDATE1 ---
History and Physical Update Update Date/Time: 09/29/21 08:08 History and Physical has been reviewed, including an updated exam of the patient. There are NO changes in the patient's condition. Risks, benefits, and alternatives have been discussed and questions answered. Patient agrees to proceed with procedure.
--- NOTE | 2021-09-29 13:38 | WPDANESEPPF ---
Anes - Initial Pre Proc Eval Date/Time: 09/29/21 13:38 Surgeon: Fidelia Mansfield MD Pre Op Diagnosis: IOL Patient Data Age: 26 Gender: F Height: 1.8 m Weight: 101.2 kg Last Vital Signs Temp 36.8 C 09/29/21 12:02 Pulse 92 09/29/21 12:46 BP 133/83 09/29/21 12:46 Allergies Allergy/AdvReac Type Severity Reaction Status Date / Time No Known Allergies Allergy Verified 09/22/21 10:30 Home Medications Medication Instructions Recorded Confirmed Type ferrous sulfate 325 mg (65 mg 325 mg PO DAILY 04/29/21 09/22/21 History iron) tablet PNV cmb#95-ferrous fumarate-FA 1 tablet PO DAILY 08/18/21 09/22/21 History [] blood sugar diagnostic #100 ea 09/08/21 09/29/21 Rx diph,pertuss(acel),tet vac(PF) 0.5 ml IM ONCE #0.5 ml 09/08/21 09/29/21 Rx lancets 33 gauge #100 ea 09/08/21 09/29/21 Rx metformin 500 mg tablet 500 mg PO BID #60 tablet 09/08/21 09/22/21 Rx nitrofurantoin 100 mg PO Q12H 7 Days #14 cap 09/27/21 09/29/21 Rx monohydrate/macrocrystals 100 mg capsule Laboratory Tests 09/29/21 09/29/21 09/29/21 05:33 05:33 05:33 WBC 9.2 K/mm3 K/mm3 (4.5-10.0) RBC 3.36 M/mm3 L M/mm3 (4.2-5.4) Hgb 9.7 g/dL L g/dL (12.0-15.0) Hct 30.0 % L % (37.0-47.0) MCV 89.3 fl fl (80-100) MCH 28.9 pg pg (26-34) MCHC 32.3 g/dl g/dl (32-36) RDW 15.9 % H % (11.5-14.5) Plt Count 185 k/mm3 k/mm3 (150-375) MPV 13.0 fl H fl (7.4-10.4) Immature Gran % (Auto) 0.5 % % (0-0.5) Neut % (Auto) 54.7 % % (45.5-73.1) Lymph % (Auto) 34.2 % % (18.3-44.2) [place] % (Auto) 8.6 % H % (2.6-8.5) Eos % (Auto) 1.6 % % (0-4.4) Baso % (Auto) 0.4 % % (0.2-1.2) Lymph # (Auto) 3.15 K/mm3 K/mm3 (0.9-3.2) [place] # (Auto) 0.8 K/mm3 H K/mm3 (0.1-0.6) Eos # (Auto) 0.2 K/mm3 K/mm3 (0-0.3) Baso # (Auto) 0.0 K/mm3 K/mm3 (0.0-0.1) Abs Immat Gran (auto) 0.05 K/mm3 H K/mm3 (0.00-0.031) Absolute Neuts (auto) 5.0 K/mm3 K/mm3 (1.3-6.7) Absolute Nucleated RBC 0.0 K/mm3 K/mm3 (0.0-0.012) Nucleated RBC % 0.0 % % (0.0-0.2) Sodium 134 mmol/L L mmol/L (137-145) Potassium 4.1 mmol/L mmol/L (3.4-5.0) Chloride 107 mmol/L mmol/L (98-107) Carbon Dioxide 22 mmol/L mmol/L (22-30) Anion Gap 5 mmol/L L mmol/L (8-16) BUN 15 mg/dL mg/dL (7-17) Creatinine 0.60 mg/dL L mg/dL (0.7-1.0) Estim Creat Clear Calc 158 ml/min ml/min Estimated GFR > 60 (59 - ) Glucose 79 mg/dL mg/dL (65-110) Uric Acid 6.4 mg/dL mg/dL (2.5-7.5) Calcium 8.4 mg/dL mg/dL (8.4-10.2) Total Bilirubin < 0.1 mg/dL L mg/dL (0.2-1.3) AST 23 U/L U/L (14-36) ALT 14 U/L U/L (4-35) Alkaline Phosphatase 127 U/L H U/L (38-126) Total Protein 6.0 g/dL L g/dL (6.3-8.2) Albumin 3.1 g/dL L g/dL (3.5-5.1) RPR Blood Type Antibody Screen 09/29/21 09/29/21 05:33 05:33 WBC RBC Hgb Hct MCV MCH MCHC RDW Plt Count MPV Immature Gran % (Auto) Neut % (Auto) Lymph % (Auto) [place] % (Auto) Eos % (Auto) Baso % (Auto) Lymph # (Auto) [place] # (Auto) Eos # (Auto) Baso # (Auto) Abs Immat Gran (auto) Absolute Neuts (auto) Absolute Nucleated RBC Nucleated RBC % Sodium Potassium Chloride Carbon Dioxide Anion Gap BUN Creatinine Estim Creat Clear Calc Estimated GFR Glucose Uric Acid C
[2021-09-29 13:41] LABS: Glucose Point of Care 82 mg/dl (65-105)
[2021-09-29] MEDS: KETOROLAC 30 MG/ML VIAL (*BKC) IV PUSH (15:09)
--- NOTE | 2021-09-29 16:02 | W.PM.PROC2 ---
Procedure Note - Detailed Date of Procedure 09/29/21 Pre-op Diagnosis 37+6 weeks gestation, previous c section, gestational hypertension and diabetes Post-op Diagnosis Same Procedure Performed Repeat LTCS Surgeon Fidelia Mansfield MD Anesthesia Spinal Findings Female infant, cephalic, Apgars 9/9, 7# 14 oz; normal uterus, tube, and ovaries Description of Procedure She was taken to the operating room where spinal anesthesia was obtained and found to be adequate. She was prepared and draped in the normal sterile fashion in the dorsal supine position with a leftward tilt. A Pfannenstiel skin incision was made over her prior incision and extended to the underlying layer of fascia with the scalpel. The fascia was incised in the midline with the scalpel and extended laterally with the Holder scissors. The underlying rectus muscles were dissected off bluntly and sharply. The rectus muscles were in the midline. The peritoneum was entered sharply and extended inferiorly and superiorly with good visualization of the bladder. The bladder blade was inserted. The vesicouterine peritoneum was tented up and entered sharply with the Metzenbaum scissors. The bladder flap was created sharply. The bladder blade was reinserted. The lower uterine segment was incised in a transverse fashion with the scalpel. The incision was digitally stretched in a cephalocaudal direction. The membranes were ruptured with clear fluid noted. The infant's head was delivered atraumatically. The shoulders and body were delivered easily. The cord was clamped x2 and cut. The infant was passed to the waiting nurse. Cord gas cord blood was obtained. The placenta was manually extracted. The uterus was exteriorized and cleared of all clots and debris. The uterine incision was closed using 0 Vicryl in a running locked fashion. Second layer of the same suture was used for hemostasis and reinforcement. There were several bleeding points along the uterine incision, which were controlled using 0 Vicryl [id number] sutures. The uterus was returned to the abdomen. The gutters were cleared of all clots and debris. The rectus muscles were inspected. Any bleeding points were cauterized. The fascia was closed using 0 Vicryl in a running fashion. The subcutaneous tissue was inspected. Any bleeding points were cauterized. The skin was closed using Insorb absorbable april. She tolerated procedure well. Sponge, needle, lap, and instrument counts were correct X2. She was taken to the recovery area in stable condition. Estimated Blood Loss 885 Drains Yes (Albarado) Packing No Pathology Yes Complications No immediate complications Condition Stable Disposition Floor
[2021-09-29] MEDS: LORATADINE 10 MG TABLET PO (16:29)
--- NOTE | 2021-09-29 18:50 | PC.NURSE ---
Patient transferred to post room #280 via stretcher. Support person, tram Navas. Oriented to unit, room, information board, rooming in, admission packet and security measures. Patient verbalizes understanding.
[2021-09-29] MEDS: HYDROcodone/acetaminophen (*CRX) 5-325 MG TABLET 1 TAB PO (21:05)
[2021-09-30 00:30] VITALS: BP 143/76; PULSE 85; RESP 16; TEMP 37.1; O2SAT 99
[2021-09-30 00:35] VITALS: PULSE 85; RESP 16; O2SAT 99
[2021-09-30] MEDS: POLYSACCHARIDE IRON COMPLEX 150 MG CAPSULE PO ×3 (00:59→16:45)
[2021-09-30] MEDS: DEXTROSE 5%/0.45% SOD CHL 1,000 ML 125 ML IV CONT (00:59)
[2021-09-30] MEDS: SIMETHICONE 80 MG TAB.CHEW PO ×4 (01:03→16:45)
[2021-09-30] MEDS: LANOLIN (LANSINOH) 7.5 GM CREAM 1 APPLIC TOPICAL (01:03)
[2021-09-30] MEDS: HYDROcodone/acetaminophen (*CRX) 10-325 MG TABLET 1 TAB PO ×4 (03:59→23:15)
[2021-09-30] MEDS: IBUPROFEN 600 MG TABLET PO ×3 (03:59→20:05)
[2021-09-30 04:10] VITALS: BP 138/79; PULSE 92; RESP 18; TEMP 36.9; O2SAT 98
[2021-09-30] MEDS: NALBUPHINE HCL INJ 10 MG/ML AMPUL 2 MG IV PUSH (05:27)
[2021-09-30] MEDS: LACTATED RINGERS 500 ML 999 ML IV CONT (05:29)
[2021-09-30 05:45] LABS: Basophils Percent Auto 0.4 % (0.2-1.2); Eosinophils Absolute Auto 0.1 K/mm3 (0-0.3); Immature Granulocyte Absolute 0.05 K/mm3 (0.00-0.031); Immature Granulocyte Percent A 0.5 % (0-0.5); Immature Platelet Fraction Pct 17.5 % (0.9-11.2); Lymphocytes Absolute Auto 2.48 K/mm3 (0.9-3.2); Lymphocytes Percent Auto 23.2 % (18.3-44.2); Mean Corpuscular HGB Conc 31.4 g/dl (32-36); Mean Corpuscular Hemoglobin 29.4 pg (26-34); Mean Corpuscular Volume 93.6 fl (80-100); Mean Platelet Volume 13.4 fl (7.4-10.4); Monocytes Absolute Auto 0.7 K/mm3 (0.1-0.6); Monocytes Percent Auto 6.6 % (2.6-8.5); Neutrophils Absolute Auto 7.3 K/mm3 (1.3-6.7); Neutrophils Percent Auto 68.3 % (45.5-73.1); Platelet Count Result 164 k/mm3 (150-375); Red Blood Count 2.35 M/mm3 (4.2-5.4); Red Cell Distribution Width 16.3 % (11.5-14.5); White Blood Count 10.7 K/mm3 (4.5-10.0)
[2021-09-30 05:48] LABS: Hemoglobin 6.9 g/dL (12.0-15.0)
--- NOTE | 2021-09-30 07:20 | WPDANLDNPN2 ---
Anes-Prog Note L&D-Neuraxial Date/Time: 09/30/21 07:20 Neuraxial medications: intrathecal PF morphine Opiod-related complaints: none Patient feedback: Patient satisfied with post-operative pain management.
--- NOTE | 2021-09-30 07:20 | WPDANLDPN2 ---
Anes-Prog Note L&D Date/Time: 09/30/21 07:20 Comfortable throughout: section Neuraxial method: spinal Epidural/Spinal procedure site: clean & non-tender Neuro status: Neuro function grossly intact. Cardiovascular status: normal Respiratory status: normal Airway patency: baseline Mental status: baseline Post-Op hydration status: normal Vital Signs: Last Vital Signs Temp 36.9 C 09/30/21 04:10 Pulse 92 09/30/21 04:10 Resp 18 09/30/21 04:10 BP 138/79 09/30/21 04:10 Pulse Ox 98 09/30/21 04:10 Pain score (VAS): 0 I/O: Intake & Output 09/29/21 09/29/21 09/30/21 15:59 23:59 07:59 Intake Total 100 740 Output Total 1430 275 Balance -1330 465 Post-procedural complaints: none Patient feedback: Patient satisfied with anesthetic care.
[2021-09-30] MEDS: HYDROcodone/acetaminophen (*CRX) 5-325 MG TABLET 1 TAB PO ×2 (07:21→12:06)
[2021-09-30] MEDS: FERROUS SULFATE 324 MG TABLET PO ×2 (07:22→16:45)
[2021-09-30] MEDS: DOCUSATE SODIUM 100 MG CAPSULE PO ×2 (07:22→16:45)
[2021-09-30] MEDS: MULTIVIT/MIN/PREN/FOL AC/IRON TABLET 1 TAB PO (07:22)
[2021-09-30 07:25] VITALS: BP 122/81; PULSE 86; RESP 18; TEMP 36.2
--- NOTE | 2021-09-30 08:31 | PM.OBPNVD ---
OB - PN: Subj Subjective Date/time seen: 09/30/21 08:31 Patient comments: no complaints, pain well controlled, incisional pain, tolerating diet, flatus present and other (Lochia similar to menses) baby status: doing well Narrative: No chest pain, shortness of breath, dizziness, RASMUSSEN, visual changes OB - PN: Obj Data Labs CBC & Chem 7: 09/30/21 03:58 09/29/21 05:33 Labs: Laboratory Results - last 24 hr 09/29/21 09/30/21 13:37 03:58 WBC 10.7 H RBC 2.35 L Hgb 6.9 L* Hct 22.0 L MCV 93.6 MCH 29.4 MCHC 31.4 L RDW 16.3 H Plt Count 164 MPV 13.4 H Immature Gran % (Auto) 0.5 Neut % (Auto) 68.3 Lymph % (Auto) 23.2 [place] % (Auto) 6.6 Eos % (Auto) 1.0 Baso % (Auto) 0.4 Lymph # (Auto) 2.48 [place] # (Auto) 0.7 H Eos # (Auto) 0.1 Baso # (Auto) 0.0 Abs Immat Gran (auto) 0.05 H Absolute Neuts (auto) 7.3 H Absolute Nucleated RBC 0.0 Nucleated RBC % 0.0 % Immature Plt Fraction 17.5 H POC Capillary Glucose 82 OB - PN A/P Assessment and Plan (1) Gestational hypertension: Code(s): O13.9 - Gestational [-induced] hypertension without significant proteinuria, unspecified trimester Status: Acute Assessment and Plan: BP normal to mildly elevated, asymptomatic. Continue to observe (2) Anemia: Code(s): D64.9 - Anemia, unspecified Status: Acute Assessment and Plan: Severe anemia (was anemic prior to C section as well), asymptomatic. No hypotension or tachycardia. Observe vital signs and symptoms closely. Patient says she would accept blood transfusion if medically advised Plan day: 1 (s/p C section, doing well) Plan: routine care Time Spent With Patient Time: Total time spent is greater than 50% in coordination of care (as documented) at patient's floor/unit and/or counseling patient: Exam Const: General: no acute distress Resp: Auscultation: clear to auscultation bilaterally Cardio: Rate: regular rate Rhythm: regular rhythm GI: Inspection: non-distended, incision (Intact without erythema, drainage, or induration) and other (Fundus firm and nontender at umbilicus) GI Palp: Yes abdominal tenderness (appropriate ) and Yes Soft to palpation Extrem: General: no edema
[2021-09-30 11:40] VITALS: BP 136/67; PULSE 90; RESP 18; TEMP 37.6; O2SAT 99
--- NOTE | 2021-09-30 12:30 | PC.NURSE ---
Nipple shield provided to mother due to ineffective latch. Reviewed good handwashing, cleaning the nipple shield and application. Discussed with mom the nipple shield precautions and possible complications. Mom and baby guide referred to as a resource for using a nipple shield, out-patient services and when to call a provider. Mom voiced understanding of the importance of hand expression, nipple stimulation and initiating a pumping schedule if continues to nurse with the shield.
--- NOTE | 2021-09-30 14:02 | PC.NURSE ---
0810 - 0815 Introductions made and consulted with patient to assess needs related to . Mother led conversation with her experience with feeding baby so far. Infant is in the nursery and mother states she attempted to latch around 0600 but baby wasn't interested . Reviewed good handwashing when working with , breast, nipples and how to protect the nipples with a deep latch. Encouraged understanding the benefits of skin to skin, responding to feeding cues, frequencies of feeding 8-12 times in 24 hours (approximately 2-3 hours), duration of feedings, milk production, intake/output feeding sheet and signs of adequate intake. Discussed stimulating infant with skin to skin, hand expressing colostrum, touch and talking to to encourage eating at the breast. Resources used to facilitate learning were used from the visual handouts/mom and baby guide. Mother voiced understanding responding to feeding cues, may need to stimulating approximately 2-3 hours from the start of the last feeding, calling for assistance if the infant does not latch or there discomfort . Mother states she will call for practicing latch after baby returns to the room and baby is skin to skin. 0830 - Mother states she forgot to call for assistance but breastfed on the left breast, however, baby doesn't like the right breast . Mother acknowledges that she is not comfortable holding infant on her right side. Mother states there may have been pinching with the breastfeed. Assessment of the nipple on the left breast presents with a small area on the nipple that is a deeper red than the rest of the nipple. Reinforced appropriate latching and encouraged skin to skin. Mother states she gave her infant a bottle last night because she felt her baby needed it. Reviewed milk production. 1026 - RN placed infant skin to skin after changing a wet and stool diaper. Encourage father of baby to assist with care. Mother is up to a chair for the first time, with a Albarado post C/S. Included father with ways he can support mother and baby. 1030- 1130 Assisted mother with infant skin to skin attempting to latch on both breast in different positions with moments of regrouping with infant skin to skin. As infant demonstrates feeding cues attempts were made to latch. Mother states I'm not giving up . Discussed the risks and benefits of using a nipple shield, pumping, bottle feeding, syringe feeding, and how to watch for signs of good intake, output, and how to stimulate with hand expressed colostrum, touch and talk. Mother works well with her infant with encouragement. Reviewed good handwashing when working with infant, breast, nipples and how to protect the nipples with a deep latch. Reinforced understanding due to the tiredness of the parents the benefits of skin to skin, responding to feeding cues, frequencies of feeding 8-12 times in 24 hours (approximately 2-3 hours), duration of feedings, milk production, intake/output feeding sheet and signs of adequate intake. Discussed stimulating with skin to skin, hand expressing colostrum, touch and talking to infant to encourage eating at the breast. Reviewed positioning and alignment, supporting breast, off-centered (asymmetrical latch) and leading with the chin with big open wide gape. opens with a wide gape to the left breast in football position but holds nipple in the mouth or closes mouth on the nipple. Nipple care reviewed with latch and positioning related to a possible shallow latch earlier without assistance and to have clean hands when touching the nipple/breast. Breast pump provided due to ineffective . Reviewed information regarding pump care, hand washing, nipple care and pumping 8 times in 24 hours (1-2 at night) for 10-15 minutes. Collection and storage of breastmilk per mom and baby guide. Reviewed recording pumping schedule on the feeding sheet. No colostrum was visualized after pumping and mother p
[2021-09-30 20:05] VITALS: BP 131/76; PULSE 92; RESP 16; TEMP 36.6
[2021-10-01] MEDS: HYDROcodone/acetaminophen (*CRX) 5-325 MG TABLET 1 TAB PO ×2 (05:00→11:52)
[2021-10-01] MEDS: IBUPROFEN 600 MG TABLET PO ×2 (05:00→11:52)
[2021-10-01 07:20] VITALS: BP 139/79; PULSE 110; RESP 20; TEMP 36.7; O2SAT 100
--- NOTE | 2021-10-01 07:53 | PM.OBPNVD ---
OB - PN: Subj Subjective Date/time seen: 10/01/21 07:53 Patient doing well. Pain well controlled with medication. Patient denies any headache, chest pain, shortness of breath, nausea, vomiting, right upper quadrant tenderness, or visual disturbances. Patient tolerating p.o. diet. Ambulating without difficulty. Voiding well. Passing flatus. OB - PN: Obj Data Labs CBC & Chem 7: 09/30/21 03:58 09/29/21 05:33 OB - PN A/P Assessment and Plan (1) Delivery by section using transverse incision of lower segment of uterus: Code(s): O82 - Encounter for delivery without indication Status: Acute Assessment and Plan: POD#2 doing well continue routine postoperative care encourage ambulation and use of IS pt requesting dc home today, which I think is reasonable emergency precautions reviewed instructed to f/u in office in 1 week (2) Gestational hypertension: Code(s): O13.9 - Gestational [-induced] hypertension without significant proteinuria, unspecified trimester Status: Acute Assessment and Plan: pt with at minimum GHTN, however, possibly preeclampsia without severe features BP WNL yesterday, will confirm BP this AM as not yet documented pt asymptomatic strict emergency precautions reviewed with patient (3) Anemia: Code(s): D64.9 - Anemia, unspecified Status: Acute Assessment and Plan: pt with anemia Hgb 6.9 yesterday currently asymptomatic continue iron supplementation Time Spent With Patient Time: Total time spent is greater than 50% in coordination of care (as documented) at patient's floor/unit and/or counseling patient: Exam Const: General: cooperative, healthy appearing, comfortable and no acute distress GI: Inspection: non-distended GI Palp: Yes Soft to palpation and No Tenderness to palpation present (GI) Other: inc c/d/i Extrem: Right lower extremity: edema (trace) Left lower extremity: edema (trace) Other: no calf tenderness
--- NOTE | 2021-10-01 08:11 | PM.OBDSVD ---
DS: Admitting Diagnosis Discharge Date 10/01/21 Admitting Diagnosis Gestational hypertension Previous section x 1, declines TOLAC OB - DS: Summary OB Procedures : None and PIH Mgmt OB Procedures Intrapartum: OB Procedures: : None Peripartum Data Procedures: Procedures Operation Date: 09/29/21 14:00 Actual Procedure Side Surgeon p Section Fidelia Mansfield MD Time Spent with Patient Time attestation: Total time spent providing and/or coordinating discharge services: DS: Data Data Completed and Pending Pending studies at discharge: Pending at discharge 09/29/21 15:10 Surgical [PTH] Routine Discharge Plan Discharge Attending physician on discharge: Gina Larry Discharging Clinician: Gina Larry Anticipated Discharge Date/Time: 10/01/21 08:11 Patient Disposition: Home, Self-Care Activity: may drive after 2 weeks and pelvic rest Diet: regular Discharge Instructions: Call office ([phone]) to schedule the following appointments: 1. Blood pressure check in 1 week. 2. Postoperative/wound check in 2-3 weeks. 3. visit in 4-6 weeks. You may take Ibuprofen 600mg every 6 hours as needed for pain. I have sent a prescription for a stronger pain medication, [place], to your pharmacy. You may take this as prescribed for breakthrough pain (pain that is not controlled with Ibuprofen). No driving for at least two weeks. You also may not drive while taking narcotics. Pain medication may make you constipated. It may be helpful to take an vzjf-paz-amkyntk stool softener, such as Colace and/or Senokot, along with the pain medication to help lessen constipation. Call office or go to ED for pain not controlled with medication, headache, chest pain, shortness of breath, fever, chills, persistent nausea or vomiting, severe abdominal pain, heavy vaginal bleeding >2 pads/hour, foul vaginal discharge or odor, any redness near incision, severe pain, pus or drainage from incision site, or problems with your breasts. Patient Instructions: Antibiotic Form Stand Alone Forms: General Discharge Information Follow-up/Referrals: Gina Larry MD [Physician] - Discharge Medications: New hydrocodone-acetaminophen 5-325 mg Tablet 1 - 2 tablet PO Q4-6H PRN (Reason: Moderate Pain (4-6)) Qty: 30 RF: 0 Continued ferrous sulfate [Feosol] 325 mg (65 mg iron) tablet 325 mg PO DAILY RF: 0 metformin 500 mg tablet 500 mg PO BID Qty: 60 RF: 0 (DME) blood sugar diagnostic Strip See Rx Instructions .Route Qty: 100 RF: 2 (DME) lancets [OneTouch Delica Plus Lancet] 33 gauge misc See Rx Instructions .Route Qty: 100 RF: 2 PNV cmb#95-ferrous fumarate-FA [] 28 mg iron- 800 mcg Tablet 1 tablet PO DAILY RF: 0 nitrofurantoin monohyd/m-cryst [Macrobid] 100 mg capsule 100 mg PO Q12H 7 Days Qty: 14 RF: 0 Discontinued Adacel(Tdap Adolesn/Adult)(PF) 2 Lf-(2.5-5-3-5 mcg)-5Lf/0.5 mL suspension 0.5 ml IM ONCE Qty: 0.5 RF: 0 Date of admission: 09/29/21 05:00 Primary Care Provider: Leann,Zachariah Rodriguez Admitting Provider: Fidelia Mansfield Attending physician on admission: Fidelia Mansfield Condition: Stable
[2021-10-01] MEDS: MULTIVIT/MIN/PREN/FOL AC/IRON TABLET 1 TAB PO (08:56)
[2021-10-01] MEDS: NITROFURANTOIN MONOHYD MACROCR 100 MG CAP PO (08:56)
[2021-10-01] MEDS: DOCUSATE SODIUM 100 MG CAPSULE PO (08:56)
[2021-10-01] MEDS: POLYSACCHARIDE IRON COMPLEX 150 MG CAPSULE PO (08:56)
--- NOTE | 2021-10-01 09:24 | PM.OBPNVD ---
OB - PN: Subj Subjective Date/time seen: 10/01/21 09:24 She states pain is controlled with medication. Tolerating regular diet. No leg pain. Lochia decreasing. Positive flatus. Baby in . She has ambulated without problems. She would like to be discharged today. No chest pain, SOB, lightheadedness or dizziness. OB - PN: Obj Data Labs CBC & Chem 7: 09/30/21 03:58 09/29/21 05:33 OB - PN A/P Assessment and Plan (1) Delivery by section using transverse incision of lower segment of uterus: Code(s): O82 - Encounter for delivery without indication Status: Acute Assessment and Plan: She is doing well. She desires discharge. Discharge precautions discussed. Time Spent With Patient Time: Total time spent is greater than 50% in coordination of care (as documented) at patient's floor/unit and/or counseling patient: Exam Const: General: comfortable and no acute distress Resp: Effort & Inspection: normal respiratory effort GI: Other: incision clean dry intact Skin: General skin exam: normal color Extrem: Other: nontender, 1+ edema no erythema Psych: Mental Status: mental status grossly normal Affect: normal affect
--- NOTE | 2021-10-01 09:29 | PM.OBDSVD ---
DS: Admitting Diagnosis Discharge Date 10/01/21 Admitting Diagnosis Desires repeat ceserean section DS: Discharge Diagnosis Discharge Diagnosis (1) Delivery by section using transverse incision of lower segment of uterus: Code(s): O82 - Encounter for delivery without indication Status: Acute (2) Anemia: Code(s): D64.9 - Anemia, unspecified Status: Acute (3) Gestational hypertension: Code(s): O13.9 - Gestational [-induced] hypertension without significant proteinuria, unspecified trimester Status: Acute OB - DS: Summary Hospital Course Hospital Course: Patient admitted and underwent a repeat ceserean section on 09/29/21. She did well postop. Ambulating and tolerating regular diet and flatus on post op day one. She had asymptomatic post op anemia. She was continued on iron therapy. Pain controlled well with oral pain medication. She desired discharge on post op day 2. Discharge precautions discussed. OB Procedures : Ultrasound OB Procedures Intrapartum: OB Procedures: : None Peripartum Data Infant Delivery Method: Section Procedures: Procedures Operation Date: 09/29/21 14:00 Actual Procedure Side Surgeon p Section Fidelia Mansfield MD complications: none Status at Discharge Functional status at discharge: independent ambulation Time Spent with Patient Time attestation: Total time spent providing and/or coordinating discharge services: Exam Const: General: cooperative Orientation/consciousness: oriented to person, oriented to place and oriented to time HENMT: General nose exam: Normal external nose present Eyes: General: appearance normal, both eyes and all related structures Resp: Effort & Inspection: normal respiratory effort GI: Inspection: normal to inspection Other: incision clean dry intact Skin: General skin exam: normal color Neuro: General: oriented to person, oriented to place and oriented to time Extrem: General: normal to inspection and no calf tenderness Psych: Appearance: grossly normal Mental Status: mental status grossly normal DS: Data Data Completed and Pending Pending studies at discharge: Pending at discharge 09/29/21 15:10 Surgical [PTH] Routine Discharge Plan Discharge Attending physician on discharge: Gina Larry Consulting providers: Azael Shelby ; Fareed Max Discharging Clinician: Gina Larry Anticipated Discharge Date/Time: 10/01/21 08:11 Patient Disposition: Home, Self-Care Activity: may drive after 2 weeks and pelvic rest Diet: regular Discharge Instructions: Call office ([phone]) to schedule the following appointments: 1. Blood pressure check in 1 week. 2. Postoperative/wound check in 2-3 weeks. 3. visit in 4-6 weeks. You may take Ibuprofen 600mg every 6 hours as needed for pain. I have sent a prescription for a stronger pain medication, Mckenzie, to your pharmacy. You may take this as prescribed for breakthrough pain (pain that is not controlled with Ibuprofen). No driving for at least two weeks. You also may not drive while taking narcotics. Pain medication may make you constipated. It may be helpful to take an pour-hrh-hlaelrp stool softener, such as Colace and/or Senokot, along with the pain medication to help lessen constipation. Call office or go to ED for pain not controlled with medication, headache, chest pain, shortness of breath, fever, chills, persistent nausea or vomiting, severe abdominal pain, heavy vaginal bleeding >2 pads/hour, foul vaginal discharge or odor, any redness near incision, severe pain, pus or drainage from incision site, or problems with your breasts. Education: Mom and Baby Guide Given to: Mother Follow-Up: Call your delivering provider's office for an appointment to be seen in: Call MD office for appointment Mom and baby should come to the [facility]
--- NOTE | 2021-10-01 11:09 | PC.NURSE ---
0830 - Consulted with parents on how the and feeding plan has been going so far. Mother led the conversation with regards to her experience feeding her baby. Reminded parents to use good handwashing to prevent infection. has had appropriate feedings in the past 24 hours and meets the outcomes for weight, output and jaundice. Mother states she feels confident to continue practicing /pumping/supplementing her infant at home. Reviewed production of human milk, transition of milk, signs of adequate intake and engorgement prevention/relief and when to call the infant care provider using the mom and baby guide. Reviewed medications mother is taking with information provided by [facility], community resources and outpatient services as listed in the mom and baby guide/[facility] website. Reinforced watching for feeding cues with responsive feeding and how to stimulate infant to initiate feeding three hours from the start of the last feeding. Parents voiced understanding of information shared. Reported to primary RN.
[2021-10-01] MEDS: MEASLES,MUMPS,RUBELLA VACCINE 0.5 ML VIAL (11:49)
== END 2021-10-01 12:50 | disposition home or self-care (01) | DRG 788 ==
LOC: ANHLDR 05:05 → ANHOB2 09-30 08:14 → ANHLDR 10-04 09:50 → ANHOB2 10-04 09:50
PROVIDERS: Admitting Provider Obstetrics & Gynecology; PCP Internal Medicine; Visit Provider Student in an Organized Health Care Education/Training Program
PROC: 10D00Z1 Extraction of Products of Conception, Low, Open Approach (ICD-10-PCS; CPT 59514; principal; 2021-09-29 14:00)
DX: O34.219 Maternal care for unspecified type scar from previous cesarean delivery (principal); O13.4 Gestational [pregnancy-induced] hypertension without significant proteinuria, complicating childbirth; O24.425 Gestational diabetes mellitus in childbirth, controlled by oral hypoglycemic drugs; Z3A.37 37 weeks gestation of pregnancy; Z37.0 Single live birth; O99.02 Anemia complicating childbirth; D64.9 Anemia, unspecified
CPT/HCPCS: 36415; 80053; 82948; 84550; 85025; 85055; 86592; 86850; 86900; 86901; 88307; 90710; A9270; J0131; J1885; J2274; J2300; J2590; J3010; J7120

== ENCOUNTER 2022-08-31 10:15 | Outpatient (CLI) | payer OTHER, SELFPAY ==
[2022-08-31 20:40] LABS: Beta HCG Quantitative 86.18 mIU/ML
[2022-09-03 04:10] LABS: Progesterone 7.2 ng/mL (***)
== END 2022-08-31 10:16 | disposition home or self-care (01) ==
LOC: ANHBWCLAB 10:17
PROVIDERS: PCP Internal Medicine; Visit Provider Obstetrics & Gynecology
DX: O09.299 Supervision of pregnancy with other poor reproductive or obstetric history, unspecified trimester (principal); Z3A.00 Weeks of gestation of pregnancy not specified
CPT/HCPCS: 36415; 84144; 84702

== ENCOUNTER 2022-09-02 11:00 | Outpatient (CLI) | payer OTHER, SELFPAY | END 2022-09-02 11:01 | disposition home or self-care (01) | LOC: ANHBWCLAB 11:02 | PROVIDERS: PCP Internal Medicine; Visit Provider Obstetrics & Gynecology | DX: O09.299 Supervision of pregnancy with other poor reproductive or obstetric history, unspecified trimester (principal); Z3A.00 Weeks of gestation of pregnancy not specified | CPT/HCPCS: 36415; 84702 ==

== ENCOUNTER → 2022-09-13 11:02 | Outpatient (CLI) | payer OTHER, SELFPAY ==
--- NOTE | ~2022-09-13 | US_ITS ---
Pelvic ultrasound. Clinical History: First trimester , inconclusive viability Technique: Realtime transabdominal and transvaginal scanning of the pelvis was performed. Color flow Doppler and Doppler spectral analysis were performed. Findings: The uterus is anteverted. There is an early intrauterine gestational sac, yolk sac present. Questionable very tiny pole, but no cardiac activity seen. Estimated gestational age of 5 week s 6 days.. The right ovary measures 2.8 x 2.3 x 2.3 cm. No significant right ovarian or adnexal mass is seen. The left ovary measures 4.7 x 2.5 x 3.1 cm. No significant left ovarian or adnexal mass is seen. There is no evidence of free fluid in the cul de sac. Impression: Intrauterine gestation with estimated gestational age of 5 weeks 6 days. Possible very tiny astrid e without definite identifiable cardiac activity at this time. This may be related to the early gesta tional age. Consider follow-up ultrasound in 5-7 days to reassess for cardiac activity. Reviewed, dictated and finalized at [facility]. Impression: Intrauterine gestation with estimated gestational age of 5 weeks 6 days. Possib le very tiny pole without definite identifiable cardiac activity at this time. This may be related to the early gestational age. Consider follow-up ultr asound in 5-7 days to reassess for cardiac activity.
== END ==
PROVIDERS: PCP Internal Medicine; Visit Provider Obstetrics & Gynecology
DX: O36.80X0 Pregnancy with inconclusive fetal viability, not applicable or unspecified (principal); Z3A.01 Less than 8 weeks gestation of pregnancy
CPT/HCPCS: 76801; 76817

== ENCOUNTER → 2022-09-26 14:53 | Outpatient (CLI) | payer OTHER, SELFPAY ==
--- NOTE | ~2022-09-26 | US_ITS ---
EXAMINATION: US OB <=14 wk fetus w TV DATE: 09/26/2022 15:20 INDICATION: with inconclusive viability. TECHNIQUE: Real-time transabdominal and transvaginal pelvic ultrasound was performed. COMPARISON: Ultrasound 09/13/2022 FINDINGS: TRANSABDOMINAL ULTRASOUND: The uterus measures 12.0 x 6.3 x 7.3 cm. TRANSVAGINAL ULTRASOUND: There is an intrauterine gestational sac. A yolk sac is identified. The fet al crown rump length measures 1.3 cm, which correlates with an estimated gestational age of 7 weeks a nd 3 day(s) (+/-) 5 day(s). heart motion is identified measuring 157 beats per minute (bpm) by M-mode Doppler. The right ovary measures 3.4 x 2.6 x 3.6 cm. The left ovary measures 4.1 x 2.2 x 2.5 cm. There is no free fluid in the pelvis. IMPRESSION: 1. Single living intrauterine gestation with estimated date of delivery of 05/10/2023 based on the ul trasound from 09/13/2022. Reviewed, dictated and finalized at location A. IMPRESSION: 1. Single living intrauterine gestation with estimated date of delivery of 05/10/2023 based on the ultrasound from 09/13/2022.
== END ==
PROVIDERS: PCP Obstetrics & Gynecology; Visit Provider Obstetrics & Gynecology
DX: O28.3 Abnormal ultrasonic finding on antenatal screening of mother (principal); Z3A.00 Weeks of gestation of pregnancy not specified
CPT/HCPCS: 76801; 76817

== ENCOUNTER 2022-11-30 10:54 | Outpatient (CLI) | payer OTHER, SELFPAY ==
--- NOTE | 2022-11-30 11:16 | ECG_ITS ---
Measurements Intervals [place] Rate: 85 P: 36 TX: 149 QRS: 42 QRSD: 94 T: 19 QT: 345 QTc: 412 Interpretive Statements SINUS RHYTHM MINIMAL Q WAVES- INFERIOR LEADS BASELINE WANDER- III, AVF, V3-V6 BORDERLINE ECG NO PREVIOUS ECG AVAILABLE FOR COMPARISON Electronically Signed On 11-30-2022 12:11:35 CDT by Iván Horne D.O.
== END 2022-11-30 10:55 | disposition home or self-care (01) ==
PROVIDERS: PCP Obstetrics & Gynecology; Visit Provider Obstetrics & Gynecology
DX: R07.9 Chest pain, unspecified (principal)
CPT/HCPCS: 93005

== ENCOUNTER 2022-12-14 13:48 | Outpatient (CLI) | payer OTHER, SELFPAY ==
--- NOTE | ~2022-12-14 | US_ITS ---
EXAMINATION: US OB <= 14 weeks fetus DATE: 12/14/22 INDICATION: Vaginal bleeding in . TECHNIQUE: Real-time ultrasound of the pelvis was performed. COMPARISON: None. FINDINGS: There is a single fetus in variable presentation. The placenta is anterior. heart rate is 155 beats per minute (bpm). The amniotic fluid volume is subjectively normal. The deepest vertical pocket is 3.6 cm. The cervical length is normal on transabdominal images. IMPRESSION: 1. Single living fetus in variable presentation. 2. Normal placenta. Reviewed, dictated and finalized at location A.
== END 2022-12-14 13:49 | disposition home or self-care (01) ==
LOC: ANHIMG 18:11
PROVIDERS: PCP Obstetrics & Gynecology; Visit Provider Obstetrics & Gynecology
DX: O46.92 Antepartum hemorrhage, unspecified, second trimester (principal); Z3A.00 Weeks of gestation of pregnancy not specified
CPT/HCPCS: 76801

== ENCOUNTER 2022-12-29 10:01 | Outpatient (CLI) | payer OTHER, SELFPAY ==
[2022-12-29 12:39] LABS: Glucose 1 Hour PP 50gm Dose 157 mg/dL
== END 2022-12-29 10:02 | disposition home or self-care (01) ==
LOC: ANHLAB 10:03
PROVIDERS: PCP Obstetrics & Gynecology; Visit Provider Obstetrics & Gynecology
DX: Z34.90 Encounter for supervision of normal pregnancy, unspecified, unspecified trimester (principal)
CPT/HCPCS: 36415; 82947

== ENCOUNTER 2023-01-20 07:03 | Outpatient (CLI) | payer OTHER, SELFPAY ==
[2023-01-20 08:00] LABS: Glucose Fasting Gestational 102 mg/dL (>/=95)
[2023-01-20 09:21] LABS: Glucose 1 Hour Gest 227 mg/dL (>/=180)
[2023-01-20 10:52] LABS: Glucose 2 Hour Gest 159 mg/dL (>/= 155)
[2023-01-20 11:16] LABS: Glucose 3 Hour Gest 116 mg/dL (>/=140)
== END 2023-01-20 07:04 | disposition home or self-care (01) ==
LOC: ANHLAB 07:05
PROVIDERS: PCP Obstetrics & Gynecology; Visit Provider Obstetrics & Gynecology
DX: O99.810 Abnormal glucose complicating pregnancy (principal); Z3A.00 Weeks of gestation of pregnancy not specified
CPT/HCPCS: 36415; 82951; 82952

== ENCOUNTER 2023-02-01 10:31 | Outpatient (RCR) | payer OTHER, SELFPAY ==
[2023-02-01 09:40] VITALS: BMI 43.7
== END 2023-02-01 16:00 | disposition home or self-care (01) ==
LOC: ANHDMC 10:31
PROVIDERS: PCP Obstetrics & Gynecology; Visit Provider Obstetrics & Gynecology
DX: O24.419 Gestational diabetes mellitus in pregnancy, unspecified control (principal); Z71.3 Dietary counseling and surveillance
CPT/HCPCS: 97802

== ENCOUNTER 2023-02-03 09:13 | Outpatient (CLI) | payer OTHER, SELFPAY ==
[2023-02-03 09:36] LABS: Hematocrit 32.5 % (37.0-47.0); Hemoglobin 10.3 g/dL (12.0-15.0); Mean Corpuscular HGB Conc 31.7 g/dl (32-36); Mean Corpuscular Hemoglobin 27.8 pg (26-34); Mean Corpuscular Volume 87.6 fl (80-100); Mean Platelet Volume 10.1 fl (7.4-10.4); Platelet Count Result 341 k/mm3 (150-375); Red Blood Count 3.71 M/mm3 (4.2-5.4); White Blood Count 12.1 K/mm3 (4.5-10.0)
== END 2023-02-03 09:14 | disposition home or self-care (01) ==
PROVIDERS: PCP Obstetrics & Gynecology; Visit Provider Obstetrics & Gynecology
DX: Z34.92 Encounter for supervision of normal pregnancy, unspecified, second trimester (principal)
CPT/HCPCS: 36415; 85027

== ENCOUNTER 2023-02-25 23:10 | Outpatient (CLI) | payer OTHER, SELFPAY ==
[2023-02-25] VITALS (7 sets, daily range): BP systolic 104–122; BP diastolic 46–54; PULSE 94–100; O2SAT 99
[2023-02-25 23:47] LABS: Glucose Point of Care 102 mg/dl (65-105)
[2023-02-26] VITALS: PULSE 91; O2SAT 99
== END 2023-02-26 00:09 | disposition home or self-care (01) ==
LOC: ANHLDR 23:42 → ANHOBOP 02-27 06:35
PROVIDERS: PCP Obstetrics & Gynecology; Visit Provider Obstetrics & Gynecology Gynecology
DX: R42 Dizziness and giddiness (principal)
CPT/HCPCS: 59025; 82948; G0378; G0379

== ENCOUNTER 2023-03-17 21:53 | Observation (INO) | payer OTHER, SELFPAY ==
[2023-03-17 22:15] VITALS: BP 127/73; PULSE 104
[2023-03-17 22:29] LABS: Appearance Urine Clear (Clear); Bacteria Urine None Seen /hpf; Bilirubin Urine Negative (Negative); Blood Urine Negative (Negative); Color Urine Dark Yellow (Yellow); Glucose Urine UA Negative (Negative); Ketones Urine Trace mg/dL (Negative); Leukocyte Esterase Ur 1+ LEU/UL (Negative); Nitrate Urine Negative (Negative); Non Pathogenic Casts 0-2; Protein Urine 1+ mg/dL (Negative); RBC Urine 0-2 /hpf (0-2); Specific Grav Ur 1.035 (1.001-1.035); Squamous Epithelial Cell Urine Few /hpf (Few); pH Urine 5.5 (5.0-9.0)
[2023-03-17 22:31] VITALS: BP 126/58; PULSE 92
[2023-03-17 22:46] VITALS: BP 123/57; PULSE 91
[2023-03-17 22:56] LABS: Add Urine Microscopic? YES
[2023-03-17 23:01] VITALS: BP 119/67; PULSE 82
[2023-03-17 23:16] VITALS: BP 121/63; PULSE 87
[2023-03-17 23:31] VITALS: BP 120/67; PULSE 84
[2023-03-17 23:53] VITALS: BMI 42.0
--- NOTE | 2023-03-17 23:56 | OBADM ---
This patient, Aliyah Will, admitted to the OB room OB Post 117 for observation. Patient/family oriented to hospital policies and general routines including ID bracelet, bed and alarms, visiting hours, pain management, procedures, bathroom and other care routines, personal items, smoking policy, room service/diet, and visiting hours. Patient/Family are encouraged to report perceived risks to care and to ask questions if they do not understand what they are told or what they should do.
--- NOTE | 2023-03-20 10:20 | PM.OBTRLD ---
OB - Triage/Final Diagnosis Visit Information Reason for evaluation: threatened labor Comments/Additional reasons for admission: I have assessed the risk for this patient, Aliyah Will, and determined that she would benefit from observation care. Evaluation Laboratory results: Laboratory Tests 03/17/23 22:18 Urine Color Dark yellow Urine Appearance Clear Urine pH 5.5 Ur Specific [place] 1.035 Urine Protein 1+ H Urine Glucose (UA) Negative Urine Ketones Trace H Ur Blood (Man) Negative Urine Nitrate Negative Urine Bilirubin Negative Urine Urobilinogen 1.0 Leukocyte Esterase Rfl 1+ H Urine RBC 0-2 Urine WBC 6-10 H Ur Squamous Epith Cells Few Urine Bacteria None seen Urine Casts 0-2
== END 2023-03-18 00:20 | disposition home or self-care (01) ==
PROVIDERS: Admitting Provider Obstetrics & Gynecology; PCP Obstetrics & Gynecology; Visit Provider Obstetrics & Gynecology
DX: O47.03 False labor before 37 completed weeks of gestation, third trimester (principal); Z3A.33 33 weeks gestation of pregnancy; O26.893 Other specified pregnancy related conditions, third trimester; R10.9 Unspecified abdominal pain
CPT/HCPCS: 81001; 87086; G0378; G0379

== ENCOUNTER 2023-03-21 12:06 | Outpatient (CLI) | payer OTHER, SELFPAY ==
[2023-03-21 19:14] LABS: Basophils Percent Auto 0.3 % (0.2-1.2); Eosinophils Absolute Auto 0.2 K/mm3 (0-0.3); Eosinophils Percent Auto 1.7 % (0-4.4); Hematocrit 32.5 % (37.0-47.0); Hemoglobin 9.9 g/dL (12.0-15.0); Immature Granulocyte Absolute 0.06 K/mm3 (0.00-0.031); Immature Granulocyte Percent A 0.5 % (0-0.5); Lymphocytes Absolute Auto 2.58 K/mm3 (0.9-3.2); Lymphocytes Percent Auto 23.3 % (18.3-44.2); Mean Corpuscular HGB Conc 30.5 g/dl (32-36); Mean Corpuscular Hemoglobin 26.4 pg (26-34); Mean Corpuscular Volume 86.7 fl (80-100); Mean Platelet Volume 11.4 fl (7.4-10.4); Monocytes Absolute Auto 0.9 K/mm3 (0.1-0.6); Monocytes Percent Auto 7.7 % (2.6-8.5); Neutrophils Absolute Auto 7.4 K/mm3 (1.3-6.7); Neutrophils Percent Auto 66.5 % (45.5-73.1); Platelet Count Result 326 k/mm3 (150-375); Red Blood Count 3.75 M/mm3 (4.2-5.4); Red Cell Distribution Width 16.1 % (11.5-14.5); White Blood Count 11.1 K/mm3 (4.5-10.0)
[2023-03-21 20:04] LABS: HIV 1/2 Ab P24 Ag Result Negative (Negative)
[2023-03-22 15:22] LABS: Rapid Plasma Reagin Non-Reactive (NonReactive)
== END 2023-03-21 12:07 | disposition home or self-care (01) ==
PROVIDERS: PCP Obstetrics & Gynecology; Visit Provider Registered Nurse
DX: Z34.92 Encounter for supervision of normal pregnancy, unspecified, second trimester (principal); Z3A.00 Weeks of gestation of pregnancy not specified
CPT/HCPCS: 36415; 59025; 76819; 85025; 86592; 86703; G0432

== ENCOUNTER 2023-03-22 15:43 | Outpatient (CLI) | payer OTHER, SELFPAY ==
[2023-03-22 15:57] VITALS: BP 124/55; PULSE 88
[2023-03-22 16:01] VITALS: BP 124/50; PULSE 91
[2023-03-22 16:16] VITALS: BP 110/51; PULSE 90
[2023-03-22 16:21] LABS: Basophils Percent Auto 0.4 % (0.2-1.2); Eosinophils Absolute Auto 0.2 K/mm3 (0-0.3); Eosinophils Percent Auto 1.5 % (0-4.4); Hematocrit 30.9 % (37.0-47.0); Hemoglobin 9.6 g/dL (12.0-15.0); Immature Granulocyte Absolute 0.05 K/mm3 (0.00-0.031); Immature Granulocyte Percent A 0.5 % (0-0.5); Lymphocytes Absolute Auto 2.44 K/mm3 (0.9-3.2); Lymphocytes Percent Auto 24.6 % (18.3-44.2); Mean Corpuscular HGB Conc 31.1 g/dl (32-36); Mean Corpuscular Hemoglobin 26.4 pg (26-34); Mean Corpuscular Volume 85.1 fl (80-100); Mean Platelet Volume 10.9 fl (7.4-10.4); Monocytes Absolute Auto 0.5 K/mm3 (0.1-0.6); Monocytes Percent Auto 4.8 % (2.6-8.5); Neutrophils Absolute Auto 6.8 K/mm3 (1.3-6.7); Neutrophils Percent Auto 68.2 % (45.5-73.1); Platelet Count Result 292 k/mm3 (150-375); Red Blood Count 3.63 M/mm3 (4.2-5.4); Red Cell Distribution Width 15.8 % (11.5-14.5); White Blood Count 9.9 K/mm3 (4.5-10.0)
[2023-03-22 16:27] LABS: Appearance Urine Clear (Clear); Bacteria Urine None Seen /hpf; Bilirubin Urine Negative (Negative); Blood Urine Negative (Negative); Color Urine Yellow (Yellow); Glucose Urine UA Negative (Negative); Ketones Urine 1+ mg/dL (Negative); Leukocyte Esterase Ur Negative LEU/UL (NEGATIVE); Nitrate Urine Negative (Negative); Non Pathogenic Casts 0-2; Protein Urine Trace mg/dL (Negative); RBC Urine 0-2 /hpf (0-2); Specific Grav Ur 1.032 (1.001-1.035); Squamous Epithelial Cell Urine Few /hpf (Few); WBC Urine 0-5 /hpf (0-3)
[2023-03-22 16:31] VITALS: BP 109/57; PULSE 91
[2023-03-22 16:33] LABS: Alanine Aminotransferase 20 U/L (6-35); Albumin Level 3.4 g/dL (3.5-5.1); Alkaline Phosphatase 133 U/L (38-126); Anion Gap 7 mmol/L (8-16); Aspartate Amino Transferase 32 U/L (14-36); Bilirubin,Total 0.4 mg/dL (0.2-1.3); Blood Urea Nitrogen 11 mg/dL (7-17); Calcium 8.7 mg/dL (8.4-10.2); Carbon Dioxide 24 mmol/L (22-30); Chloride 104 mmol/L (98-107); Estimated Glomerular Filt Rate > 60; Glucose 117 mg/dL (65-110); Potassium 3.8 mmol/L (3.4-5.0); Sodium 135 mmol/L (137-145); Uric Acid 5.6 mg/dL (2.5-7.5)
[2023-03-22 16:34] LABS: Add Urine Microscopic? YES; Creatinine Urine 181.8 mg/dL
[2023-03-22 16:43] LABS: Total Protein Urine Random < 5 mg/dL; Ur Ttl Prot Creatinine Ratio < 0.03 mg/mg (0-0.20)
[2023-03-22 16:46] VITALS: BP 122/59; PULSE 80
[2023-03-22 17:01] VITALS: BP 123/64; PULSE 87
== END 2023-03-22 17:15 | disposition home or self-care (01) ==
LOC: ANHOBOP 15:46 → ANHOBPP 15:46
PROVIDERS: PCP Internal Medicine; Visit Provider Obstetrics & Gynecology
DX: O13.9 Gestational [pregnancy-induced] hypertension without significant proteinuria, unspecified trimester (principal); Z3A.00 Weeks of gestation of pregnancy not specified
CPT/HCPCS: 36415; 59025; 80053; 81001; 82570; 84156; 84550; 85025; 87086; 87147; 87181; 87186; 99199

== ENCOUNTER 2023-03-24 10:50 | Outpatient (NON) | payer OTHER, SELFPAY ==
[2023-03-24 11:28] VITALS: BMI 42.3
[2023-03-24 12:13] LABS: Collection Time Urine 24 HOURS
[2023-03-24 12:17] LABS: Patient Weight 223 Lbs
[2023-03-24 12:23] LABS: Total Protein Urine Random 12 mg/dL
[2023-03-24 12:26] LABS: Total Protein Urine 24 Hr 168 mg/24hr (28-141); Total Volume 24 Hour Urine 1400 ml
[2023-03-24 12:27] LABS: Total Volume 24 Hour Urine 1400 ml
[2023-03-24 12:35] LABS: Creatinine Clearance Urine 198.3 ml/min (75-125); Creatinine Urine 139.5 mg/dL
== END 2023-03-24 10:51 | disposition home or self-care (01) ==
LOC: ANHOBOP 11:09
PROVIDERS: PCP Internal Medicine; Visit Provider Obstetrics & Gynecology
DX: Z34.90 Encounter for supervision of normal pregnancy, unspecified, unspecified trimester (principal); Z3A.00 Weeks of gestation of pregnancy not specified
CPT/HCPCS: 59025; 76819; 81050; 82575; 84156

== ENCOUNTER 2023-04-20 23:25 | Outpatient (CLI) | payer OTHER, SELFPAY ==
[2023-04-20 23:45] VITALS: BP 146/85; PULSE 98
[2023-04-21 00:01] VITALS: BP 133/66; PULSE 89
[2023-04-21 00:03] LABS: Glucose Point of Care 133 mg/dl (65-105)
[2023-04-21 00:11] LABS: Basophils Percent Auto 0.3 % (0.2-1.2); Eosinophils Absolute Auto 0.1 K/mm3 (0-0.3); Eosinophils Percent Auto 1.2 % (0-4.4); Hematocrit 32.9 % (37.0-47.0); Immature Granulocyte Absolute 0.07 K/mm3 (0.00-0.031); Immature Granulocyte Percent A 0.6 % (0-0.5); Lymphocytes Absolute Auto 3.11 K/mm3 (0.9-3.2); Lymphocytes Percent Auto 27.5 % (18.3-44.2); Mean Corpuscular HGB Conc 30.4 g/dl (32-36); Mean Corpuscular Hemoglobin 26.3 pg (26-34); Mean Corpuscular Volume 86.6 fl (80-100); Mean Platelet Volume 12.2 fl (7.4-10.4); Monocytes Absolute Auto 0.7 K/mm3 (0.1-0.6); Monocytes Percent Auto 5.7 % (2.6-8.5); Neutrophils Absolute Auto 7.3 K/mm3 (1.3-6.7); Neutrophils Percent Auto 64.7 % (45.5-73.1); Platelet Count Result 262 k/mm3 (150-375); Red Cell Distribution Width 18.4 % (11.5-14.5); White Blood Count 11.3 K/mm3 (4.5-10.0)
[2023-04-21 00:16] VITALS: BP 139/69; PULSE 94
[2023-04-21 00:17] LABS: Appearance Urine Cloudy (Clear); Bacteria Urine 2+ /hpf; Bilirubin Urine Negative (Negative); Blood Urine Negative (Negative); Color Urine Yellow (Yellow); Glucose Urine UA Negative (Negative); Ketones Urine Negative (Negative); Leukocyte Esterase Ur Negative LEU/UL (NEGATIVE); Nitrate Urine Negative (Negative); Protein Urine 2+ mg/dL (Negative); RBC Urine 0-2 /hpf (0-2); Specific Grav Ur 1.032 (1.001-1.035); Squamous Epithelial Cell Urine Moderate /hpf (Few)
[2023-04-21 00:18] LABS: Add Urine Microscopic? YES
[2023-04-21 00:19] LABS: Total Protein Urine Random 38 mg/dL; Ur Ttl Prot Creatinine Ratio 0.17 mg/mg (0-0.20)
[2023-04-21 00:21] LABS: Alanine Aminotransferase 18 U/L (6-35); Albumin Level 3.4 g/dL (3.5-5.1); Alkaline Phosphatase 141 U/L (38-126); Anion Gap 7 mmol/L (8-16); Aspartate Amino Transferase 27 U/L (14-36); Bilirubin,Total 0.3 mg/dL (0.2-1.3); Blood Urea Nitrogen 13 mg/dL (7-17); Calcium 8.9 mg/dL (8.4-10.2); Carbon Dioxide 22 mmol/L (22-30); Chloride 105 mmol/L (98-107); Estimated Glomerular Filt Rate > 60; Glucose 128 mg/dL (65-110); Potassium 3.7 mmol/L (3.4-5.0); Sodium 134 mmol/L (137-145); Uric Acid 5.4 mg/dL (2.5-7.5)
[2023-04-21 00:31] VITALS: BP 138/67; PULSE 82
== END 2023-04-21 00:47 | disposition home or self-care (01) ==
LOC: ANHOBOP 23:30 → ANHOBPP 04-21 00:43
PROVIDERS: PCP Internal Medicine; Visit Provider Obstetrics & Gynecology
DX: O13.9 Gestational [pregnancy-induced] hypertension without significant proteinuria, unspecified trimester (principal); Z3A.00 Weeks of gestation of pregnancy not specified
CPT/HCPCS: 36415; 59025; 76815; 76819; 80053; 81001; 82570; 82948; 84156; 84550; 85025; 87086; 87147; 87181; 87186; 99199

== ENCOUNTER 2023-04-23 13:27 | Outpatient (CLI) | payer OTHER, SELFPAY ==
[2023-04-23 13:51] VITALS: BP 142/79; PULSE 84
[2023-04-23 14:01] VITALS: BP 137/79; PULSE 80
[2023-04-23 14:11] VITALS: BP 142/73; PULSE 80
[2023-04-23 14:28] LABS: Glucose Point of Care 96 mg/dl (65-105)
[2023-04-23 14:31] VITALS: BP 142/73; PULSE 80
--- NOTE | 2023-04-23 14:33 | PC.NURSE ---
1412--Report to Dr. Shelby re: pt's reports of h/a unrelieved with Tylenol, blurry vision, nausea, swelling at 1+ pitting in BLE, DTR's 1+ bilaterally, bp's, reactive NST and lab results from her previous visit on . Orders to DC home and let pt. know that office will notify her of change in c/s date on Monday.
== END 2023-04-23 14:29 | disposition home or self-care (01) ==
LOC: ANHOBOP 13:34 → ANHOBPP 14:26
PROVIDERS: PCP Internal Medicine; Visit Provider Obstetrics & Gynecology
DX: O13.9 Gestational [pregnancy-induced] hypertension without significant proteinuria, unspecified trimester (principal); Z3A.00 Weeks of gestation of pregnancy not specified
CPT/HCPCS: 59025; 82948; 99199

== ENCOUNTER 2023-04-24 14:21 | Outpatient (RCR) | payer OTHER, SELFPAY ==
[2023-01-26 16:45] VITALS: PULSE 95
[2023-03-21 11:02] VITALS: BP 122/35; PULSE 97
[2023-03-24 12:25] VITALS: BP 118/65; PULSE 102
[2023-03-28 12:02] VITALS: BP 115/69; PULSE 98
[2023-03-31 11:23] VITALS: BP 121/63; PULSE 91
[2023-04-04 16:56] VITALS: BP 121/65; PULSE 81
[2023-04-05 17:25] VITALS: BP 126/67; PULSE 91
[2023-04-07 11:16] VITALS: BP 130/61; PULSE 76
[2023-04-07 12:48] VITALS: BP 130/61
[2023-04-11 12:33] VITALS: BP 130/61; PULSE 87
[2023-04-14 10:56] VITALS: BP 135/75; PULSE 92
[2023-04-18 13:09] VITALS: BP 139/79; PULSE 75
[2023-04-21 18:15] VITALS: BP 134/76; PULSE 73
--- NOTE | ~2023-04-24 | US_ITS ---
EXAMINATION: US OB BPP wo non-stress DATE: 03/21/2023 11:38 INDICATION: Gestational diabetes, third trimester TECHNIQUE: Real-time pelvic ultrasound was performed. The interpreting radiologist was not present fo r the study. COMPARISON: 12/14/2022 FINDINGS: There is a single living fetus in transverse lie. The placenta is anterior. There is a 3.2 cm hypoech oic area in the placenta which could reflect venous lakes. heart rate is 136 beats per minute ( bpm). Biophysical profile performed by the technologist: breathing (30 sec sustained breathing in 30 minutes): 2 out of 2 movement (3 gross body movements in 30 minutes): 2 out of 2 tone (one episode of cynglil-wklknpbra-gwskxkv limb movement): 2 out of 2 Amniotic fluid pocket (2 cm): 2 out of 2 Total score: 8 out of 8 IMPRESSION: 1. Single living fetus in transverse lie. 2. Biophysical profile 8 out of 8. Reviewed, dictated and finalized at location L.
--- NOTE | ~2023-04-24 | US_ITS ---
EXAMINATION: US OB BPP wo non-stress DATE: 04/24/2023 16:26 CDT INDICATION: Gestational diabetes TECHNIQUE: Real-time transabdominal obstetric ultrasound. FINDINGS: Comparison to 04/21/2023 There is a single living fetus in vertex presentation. The placenta is anterior without placenta pre via. cardiac activity and movement is noted with a heart rate of 138 beats per minute. Biophysical profile: breathin of 2 movement: 0 of 2 tone: 2 of 2 Amniotic flud pocket: 0 of 2 Total score: 2 of 8 IMPRESSION: 1. Single living intrauterine in vertex presentation. 2: Abnormal Total biophysical profile score of 2/8. Reviewed, dictated and finalized at location B.
--- NOTE | ~2023-04-24 | US_ITS ---
EXAMINATION: US OB BPP wo non-stress DATE: 03/24/2023 12:28 INDICATION: Gestational diabetes, third trimester TECHNIQUE: Real-time pelvic ultrasound was performed. The interpreting radiologist was not present fo r the study. COMPARISON: 03/21/2023 FINDINGS: There is a single living fetus in transverse lie. The placenta is anterior. Hypoechoic areas are agai n noted at the placenta, possibly venous lakes. heart rate is 135 beats per minute (bpm). Biophysical profile performed by the technologist: breathing (30 sec sustained breathing in 30 minutes): 2 out of 2 movement (3 gross body movements in 30 minutes): 2 out of 2 tone (one episode of kyvvazj-crsubopgr-mqazwrh limb movement): 2 out of 2 Amniotic fluid pocket (2 cm): 2 out of 2 Total score: 8 out of 8 IMPRESSION: 1. Single living fetus in transverse lie. 2. Biophysical profile 8 out of 8. Reviewed, dictated and finalized at location B.
--- NOTE | ~2023-04-24 | US_ITS ---
US OB limited w BPP DATE: 04/21/2023 15:21 INDICATION: Prior low biophysical profile score of 4 out of 8 today TECHNIQUE: Real-time imaging and Doppler analysis COMPARISON: 04/21/2023 obstetrical ultrasound with biophysical profile FINDINGS: These is now in vertex presentation. heart rate of 131 bpm. Anterior placenta. Amniotic fluid index measures 9.1 cm. Up to 3.2 cm amniotic fluid pocket. BIOPHYSICAL PROFILE reported by clock repair technician: breathin out of 2 movement: 2 out of 2 tone: 2 out of 2 Amniotic fluid pocket: 2 out of 2 Total score: 8 out of 8 IMPRESSION: Normal biophysical profile score of 8 out of 8 Fetus has shifted to vertex presentation Reviewed, dictated and finalized at Location A. Reviewed, dictated and finalized at location B.
--- NOTE | ~2023-04-24 | US_ITS ---
EXAMINATION: US OB limited w BPP DATE: 04/11/2023 11:56 CDT INDICATION: Evaluate amniotic fluid index TECHNIQUE: Real-time transabdominal obstetric ultrasound. FINDINGS: No prior studies for comparison. There is a single living fetus in breech presentation. The placenta is anterior without placenta pre via. cardiac activity and movement is noted with a heart rate of 149 beats per minute. A FI is normal measuring 9.2 cm. Biophysical profile: breathin of 2 movement: 2 of 2 tone: 2 of 2 Amniotic flud pocket: 2 of 2 Total score: 8 of 8 IMPRESSION: 1. Single living intrauterine in breech presentation. 2: Total biophysical profile score of 8/8. 3: Normal ROHAN measures 9.2 cm. Reviewed, dictated and finalized at location L.
--- NOTE | ~2023-04-24 | US_ITS ---
US OB BPP wo non-stress DATE: 04/21/2023 13:33 INDICATION: Gestational diabetes TECHNIQUE: Real-time imaging and Doppler analysis COMPARISON: 04/11/2023 Limited obstetrical ultrasound examination FINDINGS: The uterus is in transverse lie with head to lower maternal right. heart rate o f 133 bpm. Anterior placenta. A prominent placental gordon is noted. Amniotic fluid index measures 4.5 cm, which is below normal range. BIOPHYSICAL PROFILE reported by instructional support technician: breathin out of 2 movement: 0 out of 2 tone: 0 out of 2 Amniotic fluid pocket: 2 out of 2 Total score: 4 out of 8 IMPRESSION: Amniotic fluid index measures 4.5 cm, below normal range Biophysical profile score of 4 out of 8 Reviewed, dictated and finalized at Location A. Reviewed, dictated and finalized at location B.
--- NOTE | ~2023-04-24 | US_ITS ---
EXAMINATION: US OB limited w BPP DATE: 04/07/2023 12:43 INDICATION: Maternal gestational diabetes during third trimester . TECHNIQUE: Real-time pelvic ultrasound was performed. The interpreting radiologist was not present fo r the study. COMPARISON: None. FINDINGS: There is a single living fetus in breech presentation. The placenta is anterior. Again seen is a sub tle 3.5 cm hypoechoic region at the caudal margin of the placenta likely a venous gordon. heart r ate is 149 beats per minute (bpm). Biophysical profile performed by the technologist: breathing (30 sec sustained breathing in 30 minutes): 2 out of 2 movement (3 gross body movements in 30 minutes): 2 out of 2 tone (one episode of gmcashp-zjpfifjmf-ekqbcqx limb movement): 2 out of 2 Amniotic fluid pocket (2 cm): 2 out of 2 Total score: 8 out of 8 IMPRESSION: 1. Single living fetus in breech presentation with heart rate of 149 bpm. 2. Biophysical profile 8 out of 8. Reviewed, dictated and finalized at location A.
--- NOTE | 2023-04-24 16:44 | PC.NURSE ---
Patient had several variables during her NST and received a 2/[address] Called Dr. Shelby at 1639 and received verbal orders for a section today when possible.
== END 2023-04-26 23:59 | disposition home or self-care (01) ==
LOC: ANHOBOP 14:21
PROVIDERS: PCP Obstetrics & Gynecology; Visit Provider Obstetrics & Gynecology
DX: O36.8120 Decreased fetal movements, second trimester, not applicable or unspecified (principal); O24.419 Gestational diabetes mellitus in pregnancy, unspecified control; Z3A.25 25 weeks gestation of pregnancy; Z3A.32 32 weeks gestation of pregnancy; Z3A.33 33 weeks gestation of pregnancy; Z3A.34 34 weeks gestation of pregnancy; Z3A.35 35 weeks gestation of pregnancy; Z3A.36 36 weeks gestation of pregnancy; Z3A.37 37 weeks gestation of pregnancy; Z3A.38 38 weeks gestation of pregnancy
CPT/HCPCS: 59025; 76815; 76819; J2274

== ENCOUNTER 2023-04-24 16:45 | Inpatient (IN) | payer OTHER, SELFPAY ==
[2023-04-24] VITALS (25 sets, daily range): BP systolic 102–144; BP diastolic 59–115; PULSE 64–120; RESP 15–28; TEMP 36–36.6; O2SAT 97–100; BMI 44.1
--- NOTE | 2023-04-24 16:45 | LDADM ---
This patient, Aliyah Will, was admitted to Labor/Delivery/Recovery 120 on 04/24/23 at 16:45. Plans for labor, pain management and were discussed with patient. Patient/family oriented to hospital policies and general routines including ID bracelet, bed and alarms, visiting hours, pain management, procedures, bathroom and other care routines, personal items, smoking policy, room service/diet and guest tray routines, infant security routines, and visiting hours. Patient/Family are encouraged to report perceived risks to care and to ask questions if they do not understand what they are told or what they should do. See OBIX for further documentation.
--- NOTE | 2023-04-24 17:16 | WPDANESEPP ---
Anes - Eval Pre Procedure Procedure: Operation Date: 04/26/23 12:00 Proposed Procedures p Repeat Section with Bilateral Tubal Sterilization - Azael Shelby MD Date/Time: 04/24/23 17:16 Pre Op Diagnosis: R C/S Patient Data Age: 28 Gender: F Height: 1.55 m Weight: 106 kg Allergies Allergy/AdvReac Type Severity Reaction Status Date / Time No Known Allergies Allergy Verified 04/19/23 09:35 Home Medications Medication Instructions Recorded Confirmed Type vit no.95-ferrous 1 tablet PO DAILY 08/18/21 04/12/23 History fumarate 28 mg-folic acid 800 mcg tablet () aspirin 81 mg capsule 81 mg PO DAILY 11/30/22 04/12/23 History cholecalciferol (vitamin D3) 25 25 mcg PO DAILY 11/30/22 04/12/23 History mcg (1,000 unit) capsule famotidine 20 mg tablet (Pepcid) 20 mg PO DAILY 11/30/22 04/12/23 History blood sugar diagnostic (OneTouch #100 ea 01/24/23 04/12/23 Rx Verio test strips) blood-glucose meter (OneTouch #1 ea 01/24/23 04/12/23 Rx Verio Flex Meter) lancets 33 gauge (Lite Touch #100 ea 01/24/23 04/12/23 Rx Lancets) ferrous sulfate 325 mg (65 mg 325 mg PO BID 03/28/23 04/12/23 History iron) tablet (Feosol) insulin detemir U-100 100 unit/mL 20 unit subcut BID 04/04/23 04/12/23 History subcutaneous solution (Levemir U-100 Insulin) Laboratory Tests 04/24/23 17:11 WBC Pending RBC Pending Hgb Pending Hct Pending MCV Pending MCH Pending MCHC Pending RDW Pending Plt Count Pending MPV Pending Immature Gran % (Auto) Pending Neut % (Auto) Pending Lymph % (Auto) Pending [place] % (Auto) Pending Eos % (Auto) Pending Baso % (Auto) Pending Lymph # (Auto) Pending [place] # (Auto) Pending Eos # (Auto) Pending Baso # (Auto) Pending Abs Immat Gran (auto) Pending Absolute Neuts (auto) Pending Absolute Nucleated RBC Pending Nucleated RBC % Pending RPR Pending Patient hx anesthesia problems: none Family hx anesthesia problems: none Results Review: All pre-operative results and documents have been reviewed as part of the pre-operative evaluation. [facility]LY [facility] Past Medical History Medical History Gestational diabetes mellitus (GDM) controlled on oral hypoglycemic drug Gestational hypertension Missed x1 Surgical History Surgical History H/O abdominal surgery exploratory History of dilation and curettage 01/01/2021 for MAB Previous section x2 Family History Family History Mother No pertinent family history Other Hypertension Social History Social History Smoking status: Never smoker Second hand tobacco smoke exposure: No Alcohol intake: former Substance use: never Lack of Transportation: No Lack of Food: Never True Current Housing: I Have Housing Concerned About Future Housing: No Difficulty Paying Gas/Electric Bills: No Difficulty Paying for Meds: No Currently Unemployed: No Education: High School Diploma/GED Difficulty w/ Childcare or Family Care: No Living arrangements: with family Occupation/Education: occupation Gender identity (if verbalized by the patient): Female Sexual Orientation (if Verbalized by the Patient): Straight or Heterosexual Spiritual care concerns: No Exam Day of Procedure 04/24/23 17:16
[2023-04-24 17:18] LABS: Basophils Percent Auto 0.3 % (0.2-1.2); Eosinophils Absolute Auto 0.1 K/mm3 (0-0.3); Hematocrit 33.6 % (37.0-47.0); Hemoglobin 10.4 g/dL (12.0-15.0); Immature Granulocyte Absolute 0.04 K/mm3 (0.00-0.031); Immature Granulocyte Percent A 0.4 % (0-0.5); Lymphocytes Absolute Auto 2.68 K/mm3 (0.9-3.2); Lymphocytes Percent Auto 25.4 % (18.3-44.2); Mean Corpuscular Hemoglobin 26.3 pg (26-34); Mean Corpuscular Volume 85.1 fl (80-100); Mean Platelet Volume 12.1 fl (7.4-10.4); Monocytes Absolute Auto 0.8 K/mm3 (0.1-0.6); Monocytes Percent Auto 7.9 % (2.6-8.5); Neutrophils Absolute Auto 6.9 K/mm3 (1.3-6.7); Platelet Count Result 270 k/mm3 (150-375); Red Blood Count 3.95 M/mm3 (4.2-5.4); Red Cell Distribution Width 18.2 % (11.5-14.5); White Blood Count 10.6 K/mm3 (4.5-10.0)
[2023-04-24] MEDS: LACTATED RINGERS 1,000 ML 999 ML IV CONT (17:25)
--- NOTE | 2023-04-24 18:00 | PM.IMHP ---
H&P: HPI History of Present Illness Date/Time: 04/24/23 18:00 Chief Complaint: deceleration on monitoring Narrative: Patient with insulin GDM 38 weeks by LMP 07/29/22 with an EDC 05/05/23 c/w 7 week ultrasound. PNC significant for insulin requiring gestational diabetes controlled on insulin, and gestational hypertension and prior section x 2. She is scheduled for this week due to gestational hypertension. She presented today with c/o decrease movement. NST reactive and BPP with NST 4/10. There was also a variable deceleration with monitoring. She was recommended for delivery today via repeat . She agreed with today.with deceleration on monitoring and nonreassuring BPP prior plan for repeat, recommend repeat today for nonreasuring surveillance testing. She had presented to [facility] this weekend for increase bp at home and bp on l and d mostly normal, mild elevation, normal labs, neg proteinuria. She denies any severe symptoms today. Review of Systems Review of Systems: All systems reviewed & are unremarkable except as noted in HPI and below Constitutional: Constitutional: Reports no additional constitutional complaints and Denies headache(s) Eyes: Eyes: Denies spots in vision ENT: Reports system reviewed and no additional complaints, except as documented and Denies headache(s) Cardiovascular: Cardiovascular: Denies chest pain and Denies dyspnea Respiratory: Respiratory: Denies dyspnea Gastrointestinal: Gastrointestinal: Reports no additional gastrointestinal complaints Genitourinary: Genitourinary: Reports amenorrhea Musculoskeletal: Musculoskeletal: Reports no additional musculoskeletal complaints Integumentary/Breasts: Skin/Breast: Denies breast mass and Denies rash Neurologic: Denies headache(s) Psychiatric: Psychiatric: Reports no additional psychiatric complaints [facility] Past Medical History Medical History Gestational diabetes mellitus (GDM) controlled on oral hypoglycemic drug Gestational hypertension Missed x1 Surgical History Surgical History H/O abdominal surgery exploratory History of dilation and curettage 01/01/2021 for MAB Previous section x2 Family History Family History Mother No pertinent family history Other Hypertension Social History Social History Smoking status: Never smoker Second hand tobacco smoke exposure: No Alcohol intake: former Substance use: never Lack of Transportation: No Lack of Food: Never True Current Housing: I Have Housing Concerned About Future Housing: No Difficulty Paying Gas/Electric Bills: No Difficulty Paying for Meds: No Currently Unemployed: No Education: High School Diploma/GED Difficulty w/ Childcare or Family Care: No Living arrangements: with family Occupation/Education: occupation Gender identity (if verbalized by the patient): Female Sexual Orientation (if Verbalized by the Patient): Straight or Heterosexual Spiritual care concerns: No Meds Home Medications and Allergies Home Medications Medication Instructions Recorded Confirmed Type vit no.95-ferrous 1 tablet PO DAILY 08/18/21 04/12/23 History fumarate 28 mg-folic acid 800 mcg tablet () aspirin 81 mg capsule 81 mg PO DAILY 11/30/22 04/12/23 History cholecalciferol (vitamin D3) 25 25 mcg PO DAILY 11/30/22 04/12/23 History mcg (1,000 unit) capsule famotidine 20 mg tablet (Pepcid) 20 mg PO DAILY 11/30/22 04/12/23 History blood sugar diagnostic (OneTouch #100 ea 01/24/23 04/12/23 Rx Verio test strips) blood-glucose meter (OneTouch #1 ea 01/24/23 04/12/23 Rx Verio Flex Meter) lancets 33 gauge (Lite Touch #100 ea 01/01
--- NOTE | 2023-04-24 18:01 | WPDHPUPDATE1 ---
History and Physical Update Update Date/Time: 04/24/23 18:01 History and Physical has been reviewed, including an updated exam of the patient. There are NO changes in the patient's condition. Risks, benefits, and alternatives have been discussed and questions answered. Patient agrees to proceed with procedure.
[2023-04-24] MEDS: LACTATED RINGERS 1,000 ML 125 ML IV CONT (18:12)
[2023-04-24 18:14] LABS: Glucose Point of Care 77 mg/dl (65-105)
[2023-04-24] MEDS: ceFAZolin 2 GM/D5W 50 ML 2 GM/50 ML BAG IVPB (18:15)
--- NOTE | 2023-04-24 18:20 | WPDHPUPDATE1 ---
History and Physical Update Update Date/Time: 04/24/23 18:20 History and Physical has been reviewed, including an updated exam of the patient. There are NO changes in the patient's condition. Risks, benefits, and alternatives have been discussed and questions answered. Patient agrees to proceed with procedure.
[2023-04-24] MEDS: KETOROLAC 30 MG/ML VIAL (*BKC) IV PUSH ×2 (18:56→22:43)
--- NOTE | 2023-04-24 19:34 | PM.OP ---
Procedure Note - Brief Procedure Note - Brief Date of procedure: 04/24/23 R C/S Nonreassuring surveillance testing Gestational diabetes Gestational hypertension Post-op diagnosis: Same Procedure performed: Repeat low transverse Surgeon: Azael Shelby MD Anesthesia: spinal Description of procedure: Repeat low transverse section Drains: No Packing: No Pathology: Yes (placenta and cord) Complications: No immediate complications Condition: Stable Disposition: Floor
[2023-04-25 04:14] VITALS: BP 137/63; PULSE 94; RESP 18; TEMP 36.1; O2SAT 100
[2023-04-25 05:34] LABS: Basophils Percent Auto 0.3 % (0.2-1.2); Eosinophils Absolute Auto 0.1 K/mm3 (0-0.3); Eosinophils Percent Auto 0.6 % (0-4.4); Hematocrit 30.2 % (37.0-47.0); Hemoglobin 9.1 g/dL (12.0-15.0); Immature Granulocyte Absolute 0.07 K/mm3 (0.00-0.031); Immature Granulocyte Percent A 0.5 % (0-0.5); Lymphocytes Absolute Auto 3.14 K/mm3 (0.9-3.2); Lymphocytes Percent Auto 22.3 % (18.3-44.2); Mean Corpuscular HGB Conc 30.1 g/dl (32-36); Mean Corpuscular Hemoglobin 26.3 pg (26-34); Mean Corpuscular Volume 87.3 fl (80-100); Mean Platelet Volume 12.3 fl (7.4-10.4); Monocytes Absolute Auto 0.8 K/mm3 (0.1-0.6); Monocytes Percent Auto 5.4 % (2.6-8.5); Neutrophils Percent Auto 70.9 % (45.5-73.1); Platelet Count Result 223 k/mm3 (150-375); Red Blood Count 3.46 M/mm3 (4.2-5.4); Red Cell Distribution Width 18.2 % (11.5-14.5); White Blood Count 14.1 K/mm3 (4.5-10.0)
[2023-04-25 07:25] VITALS: BP 138/71; PULSE 87; RESP 16; TEMP 36.8; O2SAT 100
--- NOTE | 2023-04-25 09:04 | WPDANLDPN2 ---
Anes-Prog Note L&D Date/Time: 04/25/23 09:04 Neuro status: Neuro function grossly intact. Cardiovascular status: normal Respiratory status: normal Airway patency: baseline Mental status: baseline Post-Op hydration status: normal Vital Signs: Last Vital Signs Temp 36.1 C L 04/25/23 04:14 Pulse 94 04/25/23 04:14 Resp 18 04/25/23 04:14 BP 137/63 04/25/23 04:14 Pulse Ox 100 04/25/23 04:14 O2 Del Method Room Air 04/25/23 04:14 Pain score (VAS): 1 I/O: Intake & Output 04/24/23 04/25/23 04/25/23 23:59 07:59 15:59 Intake Total 50 500 Output Total 650 150 Balance -600 350 Post-procedural complaints: none Patient feedback: Patient satisfied with anesthetic care.
--- NOTE | 2023-04-25 09:05 | WPDANLDNPN2 ---
Anes-Prog Note L&D-Neuraxial Date/Time: 04/25/23 09:05 Neuraxial medications: intrathecal PF morphine Opiod-related complaints: none Patient feedback: Patient satisfied with post-operative pain management.
[2023-04-25 09:10] LABS: Rapid Plasma Reagin Non-Reactive (NonReactive)
[2023-04-25] MEDS: POLYSACCHARIDE IRON COMPLEX 150 MG CAPSULE PO ×2 (09:49→17:14)
[2023-04-25] MEDS: MULTIVIT/MIN/PREN/FOL AC/IRON TABLET 1 TAB PO (09:49)
[2023-04-25 09:50] VITALS: PULSE 87; RESP 16; O2SAT 100
[2023-04-25] MEDS: IBUPROFEN 600 MG TABLET PO ×2 (09:50→17:14)
[2023-04-25] MEDS: DOCUSATE SODIUM 100 MG CAPSULE PO ×2 (09:50→17:14)
[2023-04-25] MEDS: SIMETHICONE 80 MG TAB.CHEW PO (09:50)
[2023-04-25 12:15] VITALS: BP 136/86; PULSE 106; RESP 16; TEMP 36.3; O2SAT 100
[2023-04-25] MEDS: ACETAMINOPHEN 325 MG TABLET 650 MG PO ×2 (12:34→20:26)
--- NOTE | 2023-04-25 13:10 | PC.NURSE ---
[id number] Consulted with patient to assess needs related to . Mother led conversation with her experience with feeding baby so far being rare and bottle feeding mostly. Mother works well with her with encouragement. The pump is in the room for stimulating for a milk production. Mother is encouraged to pump every 3 hours 1-2 times at night for a good supply when infant is getting a bottle. Reminded mother practicing will improve her and baby's technique and skill to be effective. Reviewed working with infant, supporting breast (we started with the U-hole, then switched to the tea cup hold) and how to protect the nipples with an optimal deep latch, good positioning, and good hand washing. Encouraged understanding the benefits of skin to skin, responding to feeding cues, frequencies of feeding 8-12 times in 24 hours (approximately 2-3 hours), duration of feedings, milk production, intake/output feeding sheet and signs of adequate intake encouraging swallowing at the breast. Reviewed positioning and alignment, supporting breast, off-centered (asymmetrical latch) and leading with the chin with big, open, wide gape. Infant latched optimally to the left breast in football position a few times. Education given to mother of how to visualize suck/swallow ratios and listen for drinking at the breast. was able to maintain latch without discomfort to mother for a few sucks, then let go of the breast. We practiced the cross cradle position with the right breast and performed the same. Mother was encouraged to pump to protect the milk supply. Mother is sweating and moving away from father of baby's touch so consult was ended. --9+ 0Nipple care reviewed with optimal latch, good positioning and using clean hands when feeding her infant and touching her breast. Resources used to facilitate learning were used from the [visual handout/QR codes/ tool/mom- and baby guide]. Mother voiced understanding of the education shared, to call for assistance if the does not latch or if there is discomfort with . Reported to the primary RN.
--- NOTE | 2023-04-25 16:40 | W.PM.PROC2 ---
Procedure Note - Detailed Date of Procedure 04/25/23 Pre-op Diagnosis 1.Nonreassuring surveillance testing 2. Gestational diabetes 3. Gestational hypertension 4. Previous section x2 Post-op Diagnosis Same Procedure Performed Repeat low-transverse section Surgeon Azael Shelby MD Anesthesia Spinal Indications Nonreassuring surveillance testing Findings Male infant 2 loose nuchal cords normal uterus and fallopian tubes and ovaries. Description of Procedure After informed consent, risks and benefits of the procedure was discussed with the patient. The patient was taken to the operating room where she was placed in the dorsal lithotomy position with leftward tilt. Spinal anesthesia was administered before she was placed in position. She was prepped and draped in sterile fashion. A Pfannenstiel skin incision was made along her prior scar with a scalpel. The subcutaneous tissue was dissected down with cautery and carried through to the underlying layer of fascia. The fascia was then nicked in the midline, extending bilaterally. The fascia was dissected off the rectus muscles bluntly and sharply, superiorly and inferiorly. The rectus muscles were in the midline, and peritoneum was identified and entered bluntly. The pelvic organs were visualized. The bladder blade was then inserted. The vesicouterine peritoneum was identified and entered sharply with Metzenbaum scissors and extended bilaterally and then the bladder flap was created digitally. The low transverse uterine incision was then made with the scalpel and extended with bilateral index fingers in a crescent-shaped fashion. The head was delivered and the rest of the was delivered. The cord was wrapped around the neck twice and was reduced manually. The rest of the infant was delivered the infant was vigorously crying upon delivery. The nose and mouth suctioned. The cord was clamped twice and cut. The infant was then handed off to the awaiting pediatric staff. The placenta was then delivered manually. The uterus was exteriorized. The uterine cavity was sponge curretted. The uterine incision was then closed with 0 vicryl in a running locked fashion. A figure of eight of 0 vicryl at the right of incision was used for hemostasis. Hemostasis noted. A second layer of 0 vicryl was used in an imbricating fashion for hemostasis. The posterior cul-de-sac was irrigated. The uterus was then returned to the abdomen. Bilateral gutters were cleared off all clots and debris. The uterine incision was noted to be hemostatic. Interceed placed on uterine incision and vertically on front of uterus. The muscle bellies were inspected and noted to be hemostatic. The subfascial layer was noted to be hemostatic, and the fascia was closed with 0 Vicryl in a running fashion x2 sutures. The subcutaneous layer was then approximated with 3-0 Vicryl in a subcutaneous fashion. The skin was closed with Insorb april. Skin dermabond applied at incision. All instruments, needle, and lap counts were correct x3. The patient was taken to the recovery room in stable condition. Estimated Blood Loss -360.0 Urine Output 350 Drains No Packing No Pathology Yes (Placenta and cord) Complications No immediate complications Condition Stable Disposition Floor
--- NOTE | 2023-04-25 16:47 | PM.OBPNVD ---
OB - PN: Subj Subjective Date/time seen: 04/25/23 16:47 Interval history: She states pain is controlled. She has not ambulated. She is tolerating regular food. Patient comments: no complaints and incisional pain OB - PN: Obj Data Labs 04/25/23 03:23 Labs: Laboratory Results - last 24 hr 04/24/23 04/24/23 04/25/23 17:11 18:09 03:23 WBC 10.6 H 14.1 H RBC 3.95 L 3.46 L Hgb 10.4 L 9.1 L Hct 33.6 L 30.2 L MCV 85.1 87.3 MCH 26.3 26.3 MCHC 31.0 L 30.1 L RDW 18.2 H 18.2 H Plt Count 270 223 MPV 12.1 H 12.3 H Immature Gran % (Auto) 0.4 0.5 Neut % (Auto) 65.0 70.9 Lymph % (Auto) 25.4 22.3 Waldo % (Auto) 7.9 5.4 Eos % (Auto) 1.0 0.6 Baso % (Auto) 0.3 0.3 Lymph # (Auto) 2.68 3.14 Waldo # (Auto) 0.8 H 0.8 H Eos # (Auto) 0.1 0.1 Baso # (Auto) 0.0 0.0 Abs Immat Gran (auto) 0.04 H 0.07 H Absolute Neuts (auto) 6.9 H 10.0 H Absolute Nucleated RBC 0.0 0.0 Nucleated RBC % 0.0 0.0 POC Capillary Glucose 77 RPR Non-reactive Blood Type A Positive Antibody Screen Negative OB - PN A/P Assessment and Plan (1) Delivery by section: Status: Acute Assessment and Plan: Postop day 1. She is doing well. Continue routine post care. Time Spent With Patient Time: Total time spent is greater than 50% in coordination of care (as documented) at patient's floor/unit and/or counseling patient: Exam Const: General: comfortable and no acute distress Resp: Effort & Inspection: normal respiratory effort Psych: Mental Status: mental status grossly normal Affect: normal affect
[2023-04-25 20:30] VITALS: BP 131/59; PULSE 97; RESP 20; TEMP 36.3
[2023-04-26] VITALS (8 sets, daily range): BP systolic 127–136; BP diastolic 52–81; PULSE 85–103; RESP 16–18; TEMP 36.2–36.8; O2SAT 100
[2023-04-26] MEDS: IBUPROFEN 600 MG TABLET PO ×3 (00:27→17:17)
[2023-04-26] MEDS: ACETAMINOPHEN 325 MG TABLET 650 MG PO (05:18)
[2023-04-26] MEDS: HYDROcodone/acetaminophen (*CRX) 5-325 MG TABLET 1 TAB PO ×3 (09:00→22:17)
--- NOTE | 2023-04-26 09:00 | PC.NURSE ---
PT introductions made and plan of care discussed per post , pain management, breast feeding, supplementation, daily care activities. PT and spouse both recipients of such instructions and no barriers to learning identified at this time. PT received such instructions per one to one discussion, mom baby care guide and demonstrations. PT verbalized understanding of such care.
[2023-04-26] MEDS: POLYSACCHARIDE IRON COMPLEX 150 MG CAPSULE PO ×2 (09:02→17:19)
[2023-04-26] MEDS: MULTIVIT/MIN/PREN/FOL AC/IRON TABLET 1 TAB PO (09:02)
[2023-04-26] MEDS: SIMETHICONE 80 MG TAB.CHEW PO ×3 (09:02→17:18)
[2023-04-26] MEDS: DOCUSATE SODIUM 100 MG CAPSULE PO ×2 (09:03→17:18)
--- NOTE | 2023-04-26 11:27 | PM.OBPNVD ---
OB - PN: Subj Subjective Date/time seen: 04/26/23 11:27 Interval history: She states pain is controlled. She has not ambulated. She is tolerating regular food. OB - PN: Obj Data Labs 04/25/23 03:23 OB - PN A/P Assessment and Plan (1) Delivery by section: Status: Acute Assessment and Plan: Doing well. Adequate pain control. Time Spent With Patient Time: Total time spent is greater than 50% in coordination of care (as documented) at patient's floor/unit and/or counseling patient: Exam Const: General: comfortable and no acute distress Resp: Effort & Inspection: normal respiratory effort Psych: Mental Status: mental status grossly normal Affect: normal affect
[2023-04-26] MEDS: HYDROcodone/acetaminophen (*CRX) 10-325 MG TABLET 1 TAB PO (13:49)
[2023-04-27 05:10] VITALS: BP 129/69; PULSE 106; RESP 16; TEMP 36.4
[2023-04-27] MEDS: HYDROcodone/acetaminophen (*CRX) 5-325 MG TABLET 1 TAB PO (05:18)
[2023-04-27] MEDS: IBUPROFEN 600 MG TABLET PO (05:18)
[2023-04-27 07:30] VITALS: BP 137/77; PULSE 96; RESP 16; TEMP 37; O2SAT 100
[2023-04-27] MEDS: DOCUSATE SODIUM 100 MG CAPSULE PO (08:17)
[2023-04-27] MEDS: POLYSACCHARIDE IRON COMPLEX 150 MG CAPSULE PO (08:17)
[2023-04-27] MEDS: MULTIVIT/MIN/PREN/FOL AC/IRON TABLET 1 TAB PO (08:17)
[2023-04-27] MEDS: HYDROcodone/acetaminophen (*CRX) 10-325 MG TABLET 1 TAB PO (08:17)
[2023-04-28 10:28] VITALS: BP 134/64; PULSE 92; RESP 18; TEMP 37.2; O2SAT 100
--- NOTE | 2023-05-19 11:34 | PM.OBDSVD ---
DS: Admitting Diagnosis Discharge Date 04/27/23 Admitting Diagnosis Nonreassuring surveillance testing Gestational diabetes Gestational hypertension Prior section DS: Discharge Diagnosis Discharge Diagnosis (1) Delivery by section: Status: Acute (2) Previous delivery, antepartum: Code(s): O34.219 - Maternal care for unspecified type scar from previous delivery Status: Acute (3) Variable heart rate decelerations, antepartum: Code(s): O36.8390 - Maternal care for abnormalities of the heart rate or rhythm, unspecified trimester, not applicable or unspecified Status: Acute (4) Gestational diabetes: Code(s): O24.419 - Gestational diabetes mellitus in , unspecified control Status: Acute OB - DS: Summary Hospital Course Hospital Course: She was admitted for repeat section after having deceleration is on testing. She has also had some elevated blood pressures. Her history is significant for prior section x2 and she proceeded to have a repeat section it was uncomplicated. she did well. Baby did well . On postop day 1 she had adequate pain control postop day 2 she was ambulating well tolerating regular food positive flatus and had adequate pain control with oral medications. She was discharged home on post update 2. OB Procedures : Ultrasound OB Procedures Intrapartum: OB Procedures: : None Peripartum Data Infant Delivery Method: Section Procedures: Procedures Operation Date: 04/24/23 17:45 Actual Procedure Side Surgeon p Repeat Section Azael Shelby MD complications: none Status at Discharge Functional status at discharge: independent ambulation Time Spent with Patient Time attestation: Total time spent providing and/or coordinating discharge services: Exam Const: General: cooperative Orientation/consciousness: oriented to person, oriented to place and oriented to time HENMT: Face/Nose/Sinus: Normal external nose present Eyes: General: appearance normal, both eyes and all related structures Resp: Effort & Inspection: normal respiratory effort GI: Inspection: normal to inspection Other: Incision healing well Skin: General skin exam: normal color Neuro: General: oriented to person, oriented to place and oriented to time Extrem: General: normal to inspection and no calf tenderness Psych: Appearance: grossly normal Mental Status: mental status grossly normal DS: Data Data Completed and Pending Completed studies during hospitalization: Pending at discharge 04/24/23 18:46 Surgical [PTH] Routine Discharge Plan Discharge Attending physician on discharge: Azael Shelby Consulting providers: Marian Alcazar; Wing Neri Discharging Clinician: Azael Shelby Anticipated Discharge Date/Time: 04/27/23 09:33 Patient Disposition: Home, Self-Care Activity: may shower, no straining, no driving and pelvic rest Diet: as tolerated Discharge Instructions: Education: Mom and Baby Guide Given to: Mother Follow-Up: Call your delivering provider's office for an appointment to be seen in: 2 Weeks Mom and baby should come to the [facility] for the follow-up appointment. Appointment Date/Time: April 28, 2023 at 10:00 am What to expect at your follow-up visit: Physical Assessment Call [phone] if you are unable to keep your appointment time. BREAST CARE: * Wear a snug supportive bra. * For engorgement discomfort: Breast Feeding: * Apply warm moist washcloths * Express milk as needed to relieve engorgement * Wear loose clothing Bottle Feeding: * May apply ice packs * For sore nipples: * Identify correct latch-on * Apply warm moist washcloths before and after nursing
== END 2023-04-27 11:04 | disposition home or self-care (01) | DRG 788 ==
LOC: ANHLDR 16:50 → ANHOB2 22:23
PROVIDERS: Admitting Provider Obstetrics & Gynecology; Visit Provider Obstetrics & Gynecology
PROC: (CPT 59514; principal; 2023-04-24 19:00)
DX: O34.211 Maternal care for low transverse scar from previous cesarean delivery (principal); Z37.0 Single live birth; Z3A.38 38 weeks gestation of pregnancy; O24.429 Gestational diabetes mellitus in childbirth, unspecified control; O13.4 Gestational [pregnancy-induced] hypertension without significant proteinuria, complicating childbirth; O36.8330 Maternal care for abnormalities of the fetal heart rate or rhythm, third trimester, not applicable or unspecified
CPT/HCPCS: 36415; 59025; 76819; 82948; 85025; 86592; 86850; 86900; 86901; 88307; A9270; J0690; J1885; J2274; J2371; J2405; J2590; J7120

== ENCOUNTER 2023-07-20 10:14 | Outpatient (CLI) | payer OTHER, SELFPAY ==
[2023-07-20 10:51] LABS: Glucose Fasting 109 mg/dL
[2023-07-20 12:37] LABS: Glucose 1 Hour 202 mg/dL
[2023-07-20 12:44] LABS: Glucose 2 Hour 167 mg/dL
== END 2023-07-20 10:15 | disposition home or self-care (01) ==
PROVIDERS: Visit Provider Obstetrics & Gynecology
DX: O24.419 Gestational diabetes mellitus in pregnancy, unspecified control (principal); Z3A.00 Weeks of gestation of pregnancy not specified
CPT/HCPCS: 36415; 82951

== ENCOUNTER 2023-09-19 13:38 | Outpatient (CLI) | payer OTHER, SELFPAY ==
[2023-09-19 19:15] LABS: Beta HCG Quantitative 123.78 mIU/ML
== END 2023-09-19 13:39 | disposition home or self-care (01) ==
LOC: ANHBWCLAB 13:39
PROVIDERS: Visit Provider Obstetrics & Gynecology
DX: N91.2 Amenorrhea, unspecified (principal); Z87.59 Personal history of other complications of pregnancy, childbirth and the puerperium
CPT/HCPCS: 36415; 84144; 84702

== ENCOUNTER 2023-09-21 14:29 | Outpatient (CLI) | payer OTHER, SELFPAY | END 2023-09-21 14:30 | disposition home or self-care (01) | PROVIDERS: Visit Provider Obstetrics & Gynecology | DX: Z87.59 Personal history of other complications of pregnancy, childbirth and the puerperium (principal) | CPT/HCPCS: 36415; 84702 ==

== ENCOUNTER 2023-10-20 19:57 | Emergency (ER) | payer OTHER, SELFPAY ==
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
[2023-10-20 19:59] VITALS: BP 122/57; PULSE 76; RESP 18; TEMP 36.8; O2SAT 100
[2023-10-20 21:32] LABS: Basophils Absolute Auto 0.1 K/mm3 (0.0-0.1); Basophils Percent Auto 0.4 % (0.2-1.2); Eosinophils Absolute Auto 0.4 K/mm3 (0-0.3); Eosinophils Percent Auto 3.5 % (0-4.4); Hematocrit 34.2 % (37.0-47.0); Hemoglobin 10.8 g/dL (12.0-15.0); Immature Granulocyte Absolute 0.03 K/mm3 (0.00-0.031); Immature Granulocyte Percent A 0.2 % (0-0.5); Lymphocytes Absolute Auto 3.86 K/mm3 (0.9-3.2); Lymphocytes Percent Auto 31.2 % (18.3-44.2); Mean Corpuscular HGB Conc 31.6 g/dl (32-36); Mean Corpuscular Hemoglobin 25.6 pg (26-34); Mean Platelet Volume 10.1 fl (7.4-10.4); Monocytes Absolute Auto 0.7 K/mm3 (0.1-0.6); Monocytes Percent Auto 5.3 % (2.6-8.5); Neutrophils Absolute Auto 7.4 K/mm3 (1.3-6.7); Neutrophils Percent Auto 59.4 % (45.5-73.1); Platelet Count Result 440 k/mm3 (150-375); Red Blood Count 4.22 M/mm3 (4.2-5.4); White Blood Count 12.4 K/mm3 (4.5-10.0)
[2023-10-20 21:33] LABS: Appearance Urine Clear (Clear); Bilirubin Urine Negative (Negative); Blood Urine Negative (Negative); Color Urine Yellow (Yellow); Glucose Urine UA Negative (Negative); Ketones Urine Negative (Negative); Leukocyte Esterase Ur Negative LEU/UL (Negative); Nitrate Urine Negative (Negative); Protein Urine Negative (Negative); Urobilinogen Urine 0.2 mg/dL (<2.0); pH Urine 5.5 (5.0-9.0)
[2023-10-20 21:34] LABS: Add Urine Microscopic? NO; Specific Grav Ur 1.031 (1.001-1.035)
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
[2023-10-20 21:50] LABS: Blood Urea Nitrogen 11 mg/dL (7-17); Calcium 9.9 mg/dL (8.4-10.2); Carbon Dioxide 24 mmol/L (22-30); Estimated CRCL calculation 122 ml/min; Estimated Glomerular Filt Rate > 60; Glucose 104 mg/dL (65-110); Potassium 3.8 mmol/L (3.4-5.0); Sodium 138 mmol/L (137-145)
[2023-10-20 21:54] LABS: Anion Gap 11 mmol/L (4-12); Chloride 103 mmol/L (98-107)
[2023-10-20 22:38] VITALS: BP 120/61; PULSE 72; RESP 17; O2SAT 100
== END 2023-10-20 22:40 | disposition home or self-care (01) ==
PROVIDERS: Emergency Provider Physician Assistant; PCP Internal Medicine
DX: O9A.211 Injury, poisoning and certain other consequences of external causes complicating pregnancy, first trimester (principal); R10.32 Left lower quadrant pain; R10.31 Right lower quadrant pain; Z3A.09 9 weeks gestation of pregnancy; V49.40XA Driver injured in collision with unspecified motor vehicles in traffic accident, initial encounter
CPT/HCPCS: 36415; 70450; 72125; 76801; 80048; 81003; 81025; 84702; 85025; 99284

== ENCOUNTER 2023-10-25 11:13 | Outpatient (CLI) | payer OTHER, SELFPAY ==
--- NOTE | ~2023-10-25 | US_ITS ---
EXAMINATION: US OB <=14 wk fetus w TV DATE: 10/25/2023 12:27 INDICATION: Amenorrhea, unspecified. TECHNIQUE: Real-time transabdominal and transvaginal pelvic ultrasound was performed. COMPARISON: Ultrasound 10/20/2023 FINDINGS: TRANSABDOMINAL ULTRASOUND: The uterus measures 11.3 x 5.7 x 8.4 cm. TRANSVAGINAL ULTRASOUND: There is an intrauterine gestational sac. A yolk sac is identified. The fet al crown rump length measures 2.5 cm, which correlates with an estimated gestational age of 9 weeks a nd 1 day(s). heart motion is identified measuring 163 beats per minute (bpm) by M-mode Doppler. The right ovary measures 2.8 x 1.6 x 2.0 cm. The left ovary measures 2.8 x 2.6 x 2.2 cm. There is no free fluid in the pelvis. IMPRESSION: 1. Single living intrauterine gestation with estimated date of delivery of 05/24/2024 based on the u ltrasound from 10/20/2023. Reviewed, dictated and finalized at location E. IMPRESSION: 1. Single living intrauterine gestation with estimated date of delivery of based on the ultrasound from 10/20/2023.
== END 2023-10-25 11:14 | disposition home or self-care (01) ==
LOC: ANHIMG 11:17
PROVIDERS: PCP Internal Medicine; Visit Provider Nurse Practitioner Family
DX: N91.2 Amenorrhea, unspecified (principal)
CPT/HCPCS: 76801; 76817

== ENCOUNTER 2023-11-20 13:28 | Outpatient (RCR) | payer OTHER, SELFPAY ==
[2023-11-20 14:46] LABS: Hematocrit 33.3 % (37.0-47.0); Hemoglobin 10.3 g/dL (12.0-15.0); Mean Corpuscular HGB Conc 30.9 g/dl (32-36); Mean Corpuscular Hemoglobin 26.1 pg (26-34); Mean Corpuscular Volume 84.3 fl (80-100); Mean Platelet Volume 10.7 fl (7.4-10.4); Platelet Count Result 400 k/mm3 (150-375); Red Blood Count 3.95 M/mm3 (4.2-5.4); Red Cell Distribution Width 17.7 % (11.5-14.5); White Blood Count 9.9 K/mm3 (4.5-10.0)
[2023-11-20 15:26] LABS: Hepatitis B Surface Antigen Negative (Negative); Rubella IgG Antibody 20.3 IU/ML
[2023-11-20 15:33] LABS: HIV 1/2 Ab P24 Ag Result Negative (Negative)
[2023-11-20 15:41] LABS: Hepatitis C Virus Antibody Negative (Negative)
[2023-11-21 13:43] LABS: Rapid Plasma Reagin Non-Reactive (NonReactive)
[2023-11-22 14:18] LABS: Hematocrit 31.8 % (35.0-45.0); MCV 82.8 fL (80.0-100.0); RDW 17.2 % (11.0-15.0); Red Blood Cell Count 3.84 Million/uL (3.80-5.10)
== END 2024-02-18 23:59 | disposition home or self-care (01) ==
LOC: ANHLAB 13:28
PROVIDERS: PCP Internal Medicine; Visit Provider Obstetrics & Gynecology
DX: Z11.4 Encounter for screening for human immunodeficiency virus [HIV] (principal); O36.0190 Maternal care for anti-D [Rh] antibodies, unspecified trimester, not applicable or unspecified; Z3A.00 Weeks of gestation of pregnancy not specified
CPT/HCPCS: 36415; 83021; 85027; 86592; 86703; 86762; 86787; 86803; 86850; 86900; 86901; 87086; 87088; 87340; G0432

== ENCOUNTER 2024-01-11 16:18 | Observation (INO) | payer OTHER, SELFPAY ==
[2024-01-11 16:55] VITALS: BP 107/45; PULSE 89
[2024-01-11 17:00] VITALS: BP 103/52; PULSE 84
[2024-01-11 17:12] LABS: Appearance Urine Cloudy (Clear); Bacteria Urine 1+ /hpf; Bilirubin Urine Negative (Negative); Blood Urine Negative (Negative); Color Urine Yellow (Yellow); Glucose Urine UA Negative (Negative); Ketones Urine Trace mg/dL (Negative); Leukocyte Esterase Ur Negative LEU/UL (Negative); Nitrate Urine Negative (Negative); Non Pathogenic Casts 0-2; Protein Urine Trace mg/dL (Negative); RBC Urine 0-2 /hpf (0-2); Specific Grav Ur 1.029 (1.001-1.035); Squamous Epithelial Cell Urine Moderate /hpf (Few); WBC Urine 0-5 /hpf (0-3)
[2024-01-11 17:17] LABS: Add Urine Microscopic? YES
[2024-01-11 17:30] VITALS: BP 101/42; PULSE 83
[2024-01-11] MEDS: FAMOTIDINE 20 MG TABLET PO (17:48)
[2024-01-11] MEDS: ONDANSETRON HCL ODT 4 MG TABLET PO (17:49)
[2024-01-11 18:22] VITALS: BMI 41.6
[2024-01-11 19:49] LABS: Basophils Percent Auto 0.3 % (0.2-1.2); Eosinophils Absolute Auto 0.4 K/mm3 (0-0.3); Eosinophils Percent Auto 2.9 % (0-4.4); Hematocrit 29.1 % (37.0-47.0); Hemoglobin 9.4 g/dL (12.0-15.0); Immature Granulocyte Absolute 0.07 K/mm3 (0.00-0.031); Immature Granulocyte Percent A 0.5 % (0-0.5); Lymphocytes Absolute Auto 2.96 K/mm3 (0.9-3.2); Lymphocytes Percent Auto 21.3 % (18.3-44.2); Mean Corpuscular HGB Conc 32.3 g/dl (32-36); Mean Corpuscular Hemoglobin 27.4 pg (26-34); Mean Corpuscular Volume 84.8 fl (80-100); Mean Platelet Volume 10.3 fl (7.4-10.4); Monocytes Absolute Auto 0.8 K/mm3 (0.1-0.6); Neutrophils Absolute Auto 9.6 K/mm3 (1.3-6.7); Platelet Count Result 332 k/mm3 (150-375); Red Blood Count 3.43 M/mm3 (4.2-5.4); Red Cell Distribution Width 16.3 % (11.5-14.5); White Blood Count 13.9 K/mm3 (4.5-10.0)
[2024-01-11] MEDS: ACETAMINOPHEN 500 MG TABLET 1000 MG PO (19:53)
--- NOTE | 2024-01-11 19:54 | PC.NURSE ---
191: Dr. Pastor called and report given on patient. Reported that pain has migrated to upper middle abdomen and is worse with release of palpation. Pain rated 6/10. Dr. Pastor gave orders for CBC, CMP and lipase blood work and Tylenol 1g. Will call back with results.
[2024-01-11 19:58] LABS: Lipase 74 U/L (23-300)
[2024-01-11 20:00] LABS: Alanine Aminotransferase 14 U/L (6-35); Albumin Level 3.7 g/dL (3.5-5.1); Alkaline Phosphatase 76 U/L (38-126); Anion Gap 8 mmol/L (4-12); Aspartate Amino Transferase 18 U/L (14-36); Bilirubin,Total 0.4 mg/dL (0.2-1.3); Blood Urea Nitrogen 7 mg/dL (7-17); Calcium 8.8 mg/dL (8.4-10.2); Carbon Dioxide 23 mmol/L (22-30); Chloride 104 mmol/L (98-107); Estimated CRCL calculation 184 ml/min; Estimated Glomerular Filt Rate > 60; Glucose 108 mg/dL (65-110); Potassium 3.5 mmol/L (3.4-5.0); Sodium 135 mmol/L (137-145)
--- NOTE | 2024-01-11 20:30 | PC.NURSE ---
2008: Dr. Pastor called and report given on lab results. Patient to be discharged home with return precautions, zofran 4 mg Q6 RX and to call Dr. Bach office in the morning for a follow up appt.
--- NOTE | 2024-01-12 08:05 | PM.OBTRLD ---
OB - Triage/Final Diagnosis Visit Information Comments/Additional reasons for admission: I have assessed the risk for this patient, Aliyah Will, and determined that she would benefit from observation care. Evaluation Laboratory results: Laboratory Tests 01/11/24 01/11/24 01/11/24 16:55 19:25 19:26 WBC 13.9 H RBC 3.43 L Hgb 9.4 L Hct 29.1 L MCV 84.8 MCH 27.4 MCHC 32.3 RDW 16.3 H Plt Count 332 MPV 10.3 Immature Gran % (Auto) 0.5 Neut % (Auto) 69.0 Lymph % (Auto) 21.3 Dillon % (Auto) 6.0 Eos % (Auto) 2.9 Baso % (Auto) 0.3 Lymph # (Auto) 2.96 Dillon # (Auto) 0.8 H Eos # (Auto) 0.4 H Baso # (Auto) 0.0 Abs Immat Gran (auto) 0.07 H Absolute Neuts (auto) 9.6 H Absolute Nucleated RBC 0.000 Nucleated RBC % 0.0 Sodium 135 L Potassium 3.5 Chloride 104 Carbon Dioxide 23 Anion Gap 8 BUN 7 Creatinine 0.40 L Estim Creat Clear Calc 184 Estimated GFR > 60 Glucose 108 Calcium 8.8 Total Bilirubin 0.4 AST 18 ALT 14 Alkaline Phosphatase 76 Total Protein 7.0 Albumin 3.7 Lipase 74 Urine Color Yellow Urine Appearance Cloudy H Urine pH 6.0 Ur Specific [place] 1.029 Urine Protein Trace Urine Glucose (UA) Negative Urine Ketones Trace H Ur Blood (Man) Negative Urine Nitrate Negative Urine Bilirubin Negative Urine Urobilinogen 1.0 Leukocyte Esterase Rfl Negative Urine RBC 0-2 Urine WBC 0-5 Ur Squamous Epith Cells Moderate Urine Bacteria 1+ H Urine Casts 0-2 Vital signs: Vital Signs - 24 hr 01/11/24 16:55 01/11/24 17:00 01/11/24 17:30 Pulse Rate 89 84 83 Blood Pressure 107/45 L 103/52 L 101/42 L Final Diagnosis (1) Abdominal pain affecting : Code(s): O26.899 - Other specified related conditions, unspecified trimester; R10.9 - Unspecified abdominal pain Status: Acute
== END 2024-01-11 20:28 | disposition home or self-care (01) ==
PROVIDERS: Admitting Provider Obstetrics & Gynecology; PCP Internal Medicine; Visit Provider Obstetrics & Gynecology
DX: O26.899 Other specified pregnancy related conditions, unspecified trimester (principal); R10.9 Unspecified abdominal pain
CPT/HCPCS: 36415; 80053; 81001; 81003; 83690; 85025; A9270; G0378; G0379

== ENCOUNTER 2024-01-17 15:06 | Observation (INO) | payer OTHER, SELFPAY ==
[2024-01-17] VITALS (11 sets, daily range): BP systolic 110; BP diastolic 46–62; PULSE 85–100; RESP 20; TEMP 36.6; O2SAT 99–100; BMI 42.9
--- NOTE | 2024-01-17 15:30 | OBADM ---
This patient, Aliyah Will, admitted to the OB room OB Post 115 for observation. Patient/family oriented to hospital policies and general routines including ID bracelet, bed and alarms, visiting hours, pain management, procedures, bathroom and other care routines, personal items, smoking policy, room service/diet, and visiting hours. Patient/Family are encouraged to report perceived risks to care and to ask questions if they do not understand what they are told or what they should do.
--- NOTE | 2024-01-17 16:06 | PC.NURSE ---
No contractions noted on toco. Monitor discontinued.
[2024-01-17] MEDS: FAMOTIDINE 20 MG TABLET PO (16:15)
[2024-01-17 16:35] LABS: Alanine Aminotransferase 13 U/L (6-35); Albumin Level 3.7 g/dL (3.5-5.1); Alkaline Phosphatase 76 U/L (38-126); Anion Gap 9 mmol/L (4-12); Aspartate Amino Transferase 19 U/L (14-36); Bilirubin,Total 0.4 mg/dL (0.2-1.3); Blood Urea Nitrogen 7 mg/dL (7-17); Calcium 8.9 mg/dL (8.4-10.2); Carbon Dioxide 22 mmol/L (22-30); Chloride 104 mmol/L (98-107); Estimated Glomerular Filt Rate > 60; Glucose 130 mg/dL (65-110); Potassium 3.8 mmol/L (3.4-5.0); Sodium 135 mmol/L (137-145)
--- NOTE | 2024-01-17 16:56 | PC.NURSE ---
Dr. Shelby informed of CMP results. Pt states she has had 2 of the waves of pain since she has arrived here. The Pepcid was given about 45 mins ago. Pt's U/S was scheduled at [facility] on Monday01/19/24 at 0800. OK to send pt home taking Pepcid daily, pt to avoid fried, greasy, and spicy foods.
--- NOTE | 2024-02-12 09:19 | PM.OBTRLD ---
OB - Triage/Final Diagnosis Visit Information Comments/Additional reasons for admission: I have assessed the risk for this patient, Aliyah Will, and determined that she would benefit from observation care. Evaluation Laboratory results: Laboratory Tests 01/17/24 16:07 Sodium 135 L Potassium 3.8 Chloride 104 Carbon Dioxide 22 Anion Gap 9 BUN 7 Creatinine 0.50 L Estim Creat Clear Calc Not Reportable Estimated GFR > 60 Glucose 130 H Calcium 8.9 Total Bilirubin 0.4 AST 19 ALT 13 Alkaline Phosphatase 76 Total Protein 7.0 Albumin 3.7 Final Diagnosis (1) Abdominal pain affecting : Code(s): O26.899 - Other specified related conditions, unspecified trimester; R10.9 - Unspecified abdominal pain Status: Acute
== END 2024-01-17 17:29 | disposition home or self-care (01) ==
PROVIDERS: Admitting Provider Obstetrics & Gynecology; PCP Internal Medicine; Visit Provider Obstetrics & Gynecology
DX: O26.892 Other specified pregnancy related conditions, second trimester (principal); R10.9 Unspecified abdominal pain; Z3A.21 21 weeks gestation of pregnancy
CPT/HCPCS: 36415; 80053; A9270; G0378; G0379

== ENCOUNTER 2024-01-19 07:43 | Outpatient (CLI) | payer OTHER, SELFPAY ==
--- NOTE | ~2024-01-19 | US_ITS ---
US right upper quadrant INDICATION: Epigastric pain. Nausea. Patient is 22 weeks . PROCEDURE: Realtime right upper abdominal ultrasound. COMPARISON: No prior studies for comparison. FINDINGS: The pancreas is normal without focal mass or pancreatic ductal dilation. Liver echotexture is normal without focal mass or intrahepatic biliary dilatation. There is normal directional flow i n the portal vein. The gallbladder is normal without stones, gallbladder wall thickening or pericholecystic fluid. Comm on bile duct measures 3 mm. No sonographic Amador's sign. IMPRESSION: 1: Normal limited abdominal ultrasound. Reviewed, dictated and finalized at location B.
== END 2024-01-19 07:44 ==
LOC: MICIMG 07:44
PROVIDERS: PCP Internal Medicine; Visit Provider Obstetrics & Gynecology
DX: O26.899 Other specified pregnancy related conditions, unspecified trimester (principal); Z3A.00 Weeks of gestation of pregnancy not specified
CPT/HCPCS: 76705

== ENCOUNTER 2024-02-07 09:24 | Outpatient (CLI) | payer OTHER, SELFPAY ==
[2024-02-07 10:52] LABS: Basophils Percent Auto 0.2 % (0.2-1.2); Eosinophils Absolute Auto 0.4 K/mm3 (0-0.3); Eosinophils Percent Auto 2.8 % (0-4.4); Hematocrit 29.2 % (37.0-47.0); Hemoglobin 8.9 g/dL (12.0-15.0); Immature Granulocyte Absolute 0.13 K/mm3 (0.00-0.031); Lymphocytes Absolute Auto 2.36 K/mm3 (0.9-3.2); Lymphocytes Percent Auto 18.8 % (18.3-44.2); Mean Corpuscular HGB Conc 30.5 g/dl (32-36); Mean Corpuscular Hemoglobin 26.5 pg (26-34); Mean Corpuscular Volume 86.9 fl (80-100); Mean Platelet Volume 10.3 fl (7.4-10.4); Monocytes Absolute Auto 0.7 K/mm3 (0.1-0.6); Monocytes Percent Auto 5.7 % (2.6-8.5); Neutrophils Percent Auto 71.5 % (45.5-73.1); Platelet Count Result 313 k/mm3 (150-375); Red Blood Count 3.36 M/mm3 (4.2-5.4); Red Cell Distribution Width 15.9 % (11.5-14.5); White Blood Count 12.5 K/mm3 (4.5-10.0)
[2024-02-07 11:00] LABS: Glucose 1 Hour PP 50gm Dose 150 mg/dL
== END 2024-02-07 09:25 | disposition home or self-care (01) ==
LOC: ANHLAB 09:25
PROVIDERS: PCP Internal Medicine; Visit Provider Nurse Practitioner Obstetrics & Gynecology
DX: Z34.92 Encounter for supervision of normal pregnancy, unspecified, second trimester (principal)
CPT/HCPCS: 36415; 82947; 85025

== ENCOUNTER 2024-02-09 11:00 | Outpatient (CLI) | payer OTHER, SELFPAY ==
[2024-02-09 11:35] LABS: Glucose Fasting Gestational 98 mg/dL (>/=95)
[2024-02-09 13:47] LABS: Glucose 1 Hour Gest 202 mg/dL (>/=180)
[2024-02-09 14:20] LABS: Glucose 2 Hour Gest 123 mg/dL (>/= 155)
[2024-02-09 15:10] LABS: Glucose 3 Hour Gest 106 mg/dL (>/=140)
[2024-02-09 22:04] LABS: Iron 51 ug/dL (37-170)
[2024-02-09 22:32] LABS: Percent Iron Saturation 8 % (20-50)
[2024-02-09 23:03] LABS: Ferritin 6.31 ng/mL (6.24-137)
== END 2024-02-09 11:01 | disposition home or self-care (01) ==
LOC: ANHLAB 11:02
PROVIDERS: PCP Internal Medicine; Visit Provider Nurse Practitioner Obstetrics & Gynecology
DX: O99.012 Anemia complicating pregnancy, second trimester (principal); O99.810 Abnormal glucose complicating pregnancy
CPT/HCPCS: 36415; 82728; 82951; 82952; 83540; 83550

== ENCOUNTER 2024-02-19 09:40 | Outpatient (CLI) | payer OTHER, SELFPAY ==
[2024-02-19 09:54] VITALS: BP 123/56; PULSE 89
[2024-02-19 10:01] VITALS: BP 123/53; PULSE 89
[2024-02-19 10:16] VITALS: BP 117/47; PULSE 95
[2024-02-19 10:45] LABS: Basophils Percent Auto 0.3 % (0.2-1.2); Eosinophils Absolute Auto 0.4 K/mm3 (0-0.3); Eosinophils Percent Auto 3.2 % (0-4.4); Hematocrit 27.4 % (37.0-47.0); Hemoglobin 8.7 g/dL (12.0-15.0); Immature Granulocyte Absolute 0.14 K/mm3 (0.00-0.031); Immature Granulocyte Percent A 1.1 % (0-0.5); Lymphocytes Absolute Auto 2.58 K/mm3 (0.9-3.2); Lymphocytes Percent Auto 21.1 % (18.3-44.2); Mean Corpuscular HGB Conc 31.8 g/dl (32-36); Mean Corpuscular Hemoglobin 27.4 pg (26-34); Mean Corpuscular Volume 86.4 fl (80-100); Mean Platelet Volume 10.3 fl (7.4-10.4); Monocytes Percent Auto 7.8 % (2.6-8.5); Neutrophils Absolute Auto 8.2 K/mm3 (1.3-6.7); Neutrophils Percent Auto 66.5 % (45.5-73.1); Platelet Count Result 291 k/mm3 (150-375); Red Blood Count 3.17 M/mm3 (4.2-5.4); Red Cell Distribution Width 16.1 % (11.5-14.5); White Blood Count 12.3 K/mm3 (4.5-10.0)
[2024-02-19 10:51] LABS: Add Urine Microscopic? YES; Appearance Urine Clear (Clear); Bacteria Urine 1+ /hpf; Bilirubin Urine Negative (Negative); Blood Urine Negative (Negative); Color Urine Yellow (Yellow); Glucose Urine UA Negative (Negative); Ketones Urine Negative (Negative); Leukocyte Esterase Ur Negative LEU/UL (Negative); Nitrate Urine Negative (Negative); Non Pathogenic Casts 0-2; Protein Urine Trace mg/dL (Negative); RBC Urine 0-2 /hpf (0-2); Specific Grav Ur 1.027 (1.001-1.035); Squamous Epithelial Cell Urine Moderate /hpf (Few); WBC Urine 0-5 /hpf (0-3)
[2024-02-19 11:01] LABS: Alanine Aminotransferase 13 U/L (6-35); Albumin Level 3.5 g/dL (3.5-5.1); Alkaline Phosphatase 86 U/L (38-126); Anion Gap 9 mmol/L (4-12); Aspartate Amino Transferase 22 U/L (14-36); Bilirubin,Total 0.2 mg/dL (0.2-1.3); Blood Urea Nitrogen 8 mg/dL (7-17); Calcium 8.6 mg/dL (8.4-10.2); Carbon Dioxide 23 mmol/L (22-30); Chloride 102 mmol/L (98-107); Estimated Glomerular Filt Rate > 60; Glucose 80 mg/dL (65-110); Potassium 3.9 mmol/L (3.4-5.0); Sodium 134 mmol/L (137-145)
[2024-02-19 11:49] LABS: Creatinine Urine 156.4 mg/dL; Total Protein Urine Random < 5 mg/dL; Ur Ttl Prot Creatinine Ratio < 0.03 mg/mg (0-0.20)
--- NOTE | 2024-02-19 12:03 | PC.NURSE ---
Dr Shelby informed of lab results and hgb, ok to [facility].
[2024-02-19 12:05] VITALS: BP 123/56; PULSE 87; BMI 42.3
== END 2024-02-19 12:05 | disposition home or self-care (01) ==
LOC: ANHOBOP 09:45 → ANHOBPP 09:47
PROVIDERS: Visit Provider Obstetrics & Gynecology
DX: O13.9 Gestational [pregnancy-induced] hypertension without significant proteinuria, unspecified trimester (principal); Z3A.00 Weeks of gestation of pregnancy not specified
CPT/HCPCS: 36415; 59025; 80053; 81001; 82570; 84156; 84550; 85025; 99199

== ENCOUNTER 2024-03-28 15:53 | Outpatient (CLI) | payer OTHER, SELFPAY ==
[2024-03-28 16:26] LABS: Basophils Percent Auto 0.2 % (0.2-1.2); Eosinophils Absolute Auto 0.3 K/mm3 (0-0.3); Eosinophils Percent Auto 2.9 % (0-4.4); Hematocrit 32.8 % (37.0-47.0); Hemoglobin 10.4 g/dL (12.0-15.0); Immature Granulocyte Absolute 0.08 K/mm3 (0.00-0.031); Immature Granulocyte Percent A 0.8 % (0-0.5); Lymphocytes Absolute Auto 2.23 K/mm3 (0.9-3.2); Lymphocytes Percent Auto 22.3 % (18.3-44.2); Mean Corpuscular HGB Conc 31.7 g/dl (32-36); Mean Corpuscular Volume 88.4 fl (80-100); Mean Platelet Volume 10.3 fl (7.4-10.4); Monocytes Absolute Auto 0.7 K/mm3 (0.1-0.6); Monocytes Percent Auto 6.7 % (2.6-8.5); Neutrophils Absolute Auto 6.7 K/mm3 (1.3-6.7); Neutrophils Percent Auto 67.1 % (45.5-73.1); Platelet Count Result 303 k/mm3 (150-375); Red Blood Count 3.71 M/mm3 (4.2-5.4); Red Cell Distribution Width 19.5 % (11.5-14.5)
[2024-03-28 17:20] LABS: HIV 1/2 Ab P24 Ag Result Negative (Negative)
[2024-03-29 10:51] LABS: Rapid Plasma Reagin Non-Reactive (NonReactive)
== END 2024-03-28 15:54 | disposition home or self-care (01) ==
LOC: ANHLAB 15:54
PROVIDERS: Visit Provider Obstetrics & Gynecology
DX: O09.92 Supervision of high risk pregnancy, unspecified, second trimester (principal)
CPT/HCPCS: 36415; 85025; 86592; 86703; G0432

== ENCOUNTER 2024-05-01 22:36 | Observation (INO) | payer OTHER, SELFPAY ==
[2024-05-01] VITALS (16 sets, daily range): BP systolic 108–114; BP diastolic 49–63; PULSE 92–128; TEMP 36.6; O2SAT 96–99; BMI 43.5
[2024-05-01] MEDS: TERBUTALINE SULFATE 1 MG/ML VIAL 0.25 MG SUB-Q (23:29)
[2024-05-01] MEDS: LACTATED RINGERS 1,000 ML 125 ML IV CONT (23:33)
[2024-05-01 23:44] LABS: Glucose Point of Care 86 mg/dl (65-105)
--- NOTE | 2024-05-01 23:58 | WPDANESEPP ---
Anes - Eval Pre Procedure Procedure: Labor Epidural Date/Time: 05/01/24 23:58 Surgeon: Dawit Pre Op Diagnosis: R/O labor repeat Patient Data Age: 29 Gender: F Height: Weight: Last Vital Signs Pulse 128 H 05/01/24 23:46 BP 114/63 05/01/24 23:46 Pulse Ox 98 05/01/24 23:57 Allergies Allergy/AdvReac Type Severity Reaction Status Date / Time No Known Allergies Allergy Verified 04/30/24 11:52 Home Medications Medication Instructions Recorded Confirmed Type vit no.95-ferrous 1 tablet PO DAILY 01/17/24 04/26/24 History fumarate 28 mg-folic acid 800 mcg tablet () blood sugar diagnostic (OneTouch #100 ea 02/12/24 04/26/24 Rx Verio test strips) blood-glucose meter (OneTouch #1 ea 02/12/24 04/26/24 Rx Verio Flex Meter) lancets 33 gauge #100 ea 02/12/24 04/26/24 Rx insulin lispro 100 unit/mL 6 unit (0.06 mL) subcut QACDINNER 04/11/24 04/26/24 Rx subcutaneous pen (Humalog KwikPen #15 mL (U-100) Insulin) omeprazole 20 mg capsule,delayed 20 mg PO DAILY acid reflux 60 04/16/24 04/26/24 Rx release days #60 caps insulin NPH isoph U-100 human 100 38 unit subcut QHS 04/26/24 04/26/24 History unit/mL (3 mL) subcutaneous pen (Humulin N NPH U-100 Insulin KwikPen) Laboratory Tests 05/01/24 23:40 POC Capillary Glucose 86 mg/dl (65-105) : gestational age (NORMA 05/24/24) Patient hx anesthesia problems: none Family hx anesthesia problems: none Results Review: All pre-operative results and documents have been reviewed as part of the pre-operative evaluation. [facility] Past Medical History Medical History Gestational diabetes mellitus (GDM) controlled on oral hypoglycemic drug Gestational hypertension Missed x1 Surgical History Surgical History H/O abdominal surgery exploratory History of dilation and curettage (~01/2020) for missed AB History of primary section Status post repeat low transverse section (~08/2021) Dr Mansfield Status post repeat low transverse section (~04/2023) Dr Shelby Family History Family History Mother No pertinent family history Other Hypertension Social History Social History Smoking status: Never smoker Second hand tobacco smoke exposure: No Alcohol intake: former Substance use: never Lack of Transportation: No Lack of Food: Never True Current Housing: I Have Housing Concerned About Future Housing: No Difficulty Paying Gas/Electric Bills: No Difficulty Paying for Meds: No Currently Unemployed: No Education: High School Diploma/GED Difficulty w/ Childcare or Family Care: No Living arrangements: with family Occupation/Education: occupation Gender identity (if verbalized by the patient): Female Sexual Orientation (if Verbalized by the Patient): Straight or Heterosexual Spiritual care concerns: No Exam Day of Procedure 05/01/24 23:58 Patient weight: normal Heart: regular rate and rhythm Lungs: normal air movement Airway: Mallampati scale class II Neurological: alert and oriented
[2024-05-02] VITALS (46 sets, daily range): BP systolic 94–118; BP diastolic 43–100; PULSE 97–130; TEMP 36.5; O2SAT 96–100
[2024-05-02 01:27] LABS: Add Urine Microscopic? YES; Appearance Urine Cloudy (Clear); Bacteria Urine None Seen /hpf; Bilirubin Urine Negative (Negative); Blood Urine 2+ (Negative); Color Urine Yellow (Yellow); Glucose Urine UA Negative (Negative); Ketones Urine 1+ mg/dL (Negative); Leukocyte Esterase Ur Negative LEU/UL (Negative); Need Manual Microscopic Reviewed; Nitrate Urine Negative (Negative); Protein Urine 1+ mg/dL (Negative); Specific Grav Ur 1.024 (1.001-1.035); Squamous Epithelial Cell Urine Moderate /hpf (Few); WBC Urine 0-5 /hpf (0-3)
[2024-05-02] MEDS: TERBUTALINE SULFATE 1 MG/ML VIAL 0.25 MG SUB-Q (02:15)
--- NOTE | 2024-05-02 02:43 | OBADM ---
This patient, Aliyah Will, admitted to the OB room Labor/Delivery/Recovery 119 for observation. Patient/family oriented to hospital policies and general routines including ID bracelet, bed and alarms, visiting hours, pain management, procedures, bathroom and other care routines, personal items, smoking policy, room service/diet, and visiting hours. Patient/Family are encouraged to report perceived risks to care and to ask questions if they do not understand what they are told or what they should do.
--- NOTE | 2024-05-03 11:23 | P.PNOB_ITS ---
OB - Triage/Final Diagnosis Visit Information Reason for evaluation: threatened labor Comments/Additional reasons for admission: I have assessed the risk for this patient, Aliyah Will, and determined that she would benefit from observation care. Evaluation Laboratory results: Laboratory Tests 05/01/24 05/02/24 23:40 01:06 POC Capillary Glucose 86 Urine Color Yellow Urine Appearance Cloudy H Urine pH 6.0 Ur Specific [place] 1.024 Urine Protein 1+ H Urine Glucose (UA) Negative Urine Ketones 1+ H Ur Blood (Man) 2+ H Urine Nitrate Negative Urine Bilirubin Negative Urine Urobilinogen 1.0 Add Ur Microanalysis Reviewed Leukocyte Esterase Rfl Negative Urine RBC 6-10 H Urine WBC 0-5 Ur Squamous Epith Cells Moderate Urine Bacteria None seen Urine Casts 3-5
== END 2024-05-02 03:41 | disposition home or self-care (01) ==
PROVIDERS: Obstetrics & Gynecology; Admitting Provider Obstetrics & Gynecology; PCP Internal Medicine; Visit Provider Obstetrics & Gynecology
DX: O47.03 False labor before 37 completed weeks of gestation, third trimester (principal); Z3A.36 36 weeks gestation of pregnancy
CPT/HCPCS: 81001; 82948; 96372; G0378; G0379; J3105; J7120

== ENCOUNTER 2024-05-16 10:30 | Outpatient (RCR) | payer OTHER, SELFPAY ==
[2024-04-01 18:10] VITALS: BP 118/55; PULSE 101
[2024-04-08 17:22] VITALS: BP 114/60
[2024-04-15 17:24] VITALS: BP 121/65; PULSE 95
[2024-04-22 17:57] VITALS: BP 115/52; PULSE 85
[2024-04-26 15:10] VITALS: BP 116/63; PULSE 94
[2024-04-29 17:53] VITALS: BP 118/64; PULSE 91
[2024-05-06 10:55] VITALS: BP 120/66; PULSE 106
[2024-05-09 17:43] VITALS: BP 118/64; PULSE 85
[2024-05-13 11:15] VITALS: BP 116/56; PULSE 77
--- NOTE | ~2024-05-16 | US_ITS ---
EXAMINATION: US OB follow up DATE: 04/26/2024 14:58 INDICATION: Gestational diabetes. Third trimester. TECHNIQUE: Real-time ultrasound of the pelvis was performed. COMPARISON: Ultrasound 04/22/2024, 10/20/2023 FINDINGS: There is a single living fetus in vertex presentation. The placenta is on the left. heart rate is 142 beats per minute (bpm). The cervical length is 2.6 cm on transabdominal images, which is norm al. The amniotic fluid volume is subjectively normal. The following biometric data were obtained: Biparietal diameter (BPD): 9.2 cm; head circumference (HC): 34.4 cm; abdominal circumference (AC): 35 .0 cm; femur length (FL): 7.1 cm. These measurements are concordant. Estimated weight is 3442 g +/- 516 g, which correlates with the 96th percentile when 05/24/24 i s used as estimated date of delivery. As single measurements, these parameters are each equal to the following estimated gestational ages: BPD: 37 weeks 2 days. HC: 39 weeks 6 days. AC: 38 weeks 6 days. FL: 36 weeks 4 days. estimated gestational age based solely on measurements from this exam is 38 weeks 1 days +/- 2 weeks 5 days. IMPRESSION: 1. Single living fetus in vertex presentation. 2. Large for gestational age. Estimated weight is 3442 g +/- 516 g, which correlates with the 96th percentile when 05/24/24 is used as estimated date of delivery. This date was set by ultrasound on 10/20/2023. Reviewed, dictated and finalized at location A. IMPRESSION: 1. Single living fetus in vertex presentation. 2. Large for gestational age. Estimated weight is 3442 g +/- 516 g, whic h correlates with the 96th percentile when 05/24/24 is used as estimated date o f delivery. This date was set by ultrasound on 10/20/2023.
--- NOTE | ~2024-05-16 | US_ITS ---
EXAMINATION: US OB limited w BPP DATE: 05/16/2024 12:37 INDICATION: Gestational diabetes. Third trimester. TECHNIQUE: Real-time pelvic ultrasound was performed. COMPARISON: Ultrasound 05/13/2024 FINDINGS: There is a single living fetus in vertex presentation. The placenta is posterior. heart rate i s 136 beats per minute (bpm). The amniotic fluid index is 13.5 cm which is normal. Biophysical profile performed by the technologist: breathing (30 sec sustained breathing in 30 minutes): 2 out of 2 movement (3 gross body movements in 30 minutes): 2 out of 2 tone (one episode of avqszph-lpwfjyjms-dkpwcuq limb movement): 2 out of 2 Amniotic fluid pocket (2 cm): 2 out of 2 Total score: 8 out of 8 IMPRESSION: 1. Single living fetus in vertex presentation. 2. Biophysical profile 8 out of 8. Reviewed, dictated and finalized at location A. ER GLUE JOINTER FEEDBACK
--- NOTE | ~2024-05-16 | US_ITS ---
EXAMINATION: US OB limited DATE: 05/06/2024 11:31 INDICATION: Gestational diabetes. Third trimester. TECHNIQUE: Real-time ultrasound of the pelvis was performed. COMPARISON: Ultrasound 04/29/2024 FINDINGS: There is a single fetus in vertex presentation. The placenta is left posterior. heart rate is 151 beats per minute (bpm). The amniotic fluid index is 16.9 cm cm, which is normal. IMPRESSION: 1. Single living fetus in vertex presentation. Reviewed, dictated and finalized at location A. CLEANING ATTENDANT
--- NOTE | ~2024-05-16 | US_ITS ---
EXAMINATION: US OB limited DATE: 04/29/2024 18:02 INDICATION: Maternal gestational diabetes during third trimester . TECHNIQUE: Real-time ultrasound of the pelvis was performed. The interpreting radiologist was not pre sent for the study. COMPARISON: None. FINDINGS: There is a single living fetus in vertex presentation. The placenta is on maternal left and not low- lying. heart rate is 134 beats per minute (bpm). The amniotic fluid index is 13.0 cm, which is normal (5th%-95%: 7.7-25 cm at 36 weeks estimated gestational age). Normal cervical length of approxi mately 3.8 cm. IMPRESSION: 1. Single living fetus in vertex presentation with heart rate of 134 bpm. 2. Normal amniotic fluid index of 13.0 cm. Reviewed, dictated and finalized at location A. IMPRESSION: 1. Single living fetus in vertex presentation with heart rate of 134 bpm . 2. Normal amniotic fluid index of 13.0 cm.
--- NOTE | ~2024-05-16 | US_ITS ---
EXAMINATION: US OB limited DATE: 04/22/2024 18:29 INDICATION: Gestational diabetes. Assess amniotic fluid index. TECHNIQUE: Real-time ultrasound of the pelvis was performed. The interpreting radiologist was not pre sent for the study. COMPARISON: 04/15/2024 FINDINGS: There is a single living fetus in vertex presentation. The placenta is left posterior with a couple central anechoic venous lakes. heart rate is 122 beats per minute (bpm). The amniotic fluid ind ex is 13.5 cm, which is normal. IMPRESSION: 1. Single living fetus in vertex presentation with heart rate of 122 bpm. 2. Normal amniotic fluid index of 13.5 cm. Reviewed, dictated and finalized at location A.
--- NOTE | ~2024-05-16 | US_ITS ---
LIMITED OBSTETRIC ULTRASOUND. Ordering provider: Azael Shelby MD History: . GDM - ROHAN . Comparison: None. FINDINGS: MATERNAL CERVIX: Not visualized. PRESENTATION: Vertex. Lie: Longitudinal. PLACENTAL LOCATION: Posterior maternal left. No previa. Distance from cervix to placenta is out of ra nge HEART RATE: 134 bpm . AMNIOTIC FLUID INDEX: 12 centimeters. Subjectively normal. 5th percentile is 7.3 cm. 95th percentile is 2.4 Largest vertical pocket is 3.9 cm. OTHER: Maternal ovaries not visualized. IMPRESSION: Single live fetus of cephalic presentation. Reviewed, dictated and finalized at location A. NING FACILITATOR
--- NOTE | ~2024-05-16 | US_ITS ---
LIMITED OBSTETRIC ULTRASOUND/BIOPHYSICAL PROFILE Ordering provider: Azael Shelby MD History: . GDM/BPP and ROHAN . Comparison: None. FINDINGS: MATERNAL CERVIX: Not visualized. 3.4 cm which is normal (normal is equal to or greater than 3.0 cm). PRESENTATION: Vertex Lie: Longitudinal. PLACENTAL LOCATION: Posterior No previa. HEART RATE: 124 bpm (normal is between 110 to 160 bpm). AMNIOTIC FLUID INDEX: 13.3 cm. Largest vertical pocket is 5 cm. 5th percentile is 8.3 cm. 95th perce ntile is 2.5 cm. OTHER: Maternal ovaries not visualized. SCORE: breathing movements: 2 movements: 2 tone: 2 Amniotic fluid volume: 2 Total: 8 IMPRESSION: Normal biophysical profile. Reviewed, dictated and finalized at location A. IMPRESSION: Normal biophysical profile.
--- NOTE | ~2024-05-16 | US_ITS ---
EXAMINATION: US OB limited DATE: 04/15/2024 17:49 INDICATION: Amniotic fluid index. Third trimester. TECHNIQUE: Real-time ultrasound of the pelvis was performed. COMPARISON: Ultrasound 04/08/2024 FINDINGS: There is a single fetus in breech presentation. The placenta is on the left. heart rate is 147 beats per minute (bpm). The amniotic fluid index is 13.5 cm, which is normal. IMPRESSION: 1. Single living fetus in breech presentation. 2. Normal amniotic fluid index. Reviewed, dictated and finalized at location A.
--- NOTE | ~2024-05-16 | US_ITS ---
EXAMINATION: US OB limited DATE: 04/01/2024 18:03 INDICATION: ROHAN for GDM . TECHNIQUE: Real-time ultrasound of the pelvis was performed. COMPARISON: 10/25/2023 FINDINGS: There is a single living fetus in vertex presentation. The placenta is posterior. heart rate i s 130 bpm. The amniotic fluid index is 17.3 cm, which is normal (5th to 95th percentile is 8.6 to 2.4 cm). Biophysical profile performed by the technologist: IMPRESSION: Single living fetus in vertex presentation. Normal ROHAN. Reviewed, dictated and finalized at location K.
[2024-05-16 12:58] VITALS: BP 132/69; PULSE 91
== END 2024-05-29 17:46 | disposition home or self-care (01) ==
LOC: ANHOBOP 10:30
PROVIDERS: Visit Provider Obstetrics & Gynecology
DX: O24.419 Gestational diabetes mellitus in pregnancy, unspecified control (principal); Z3A.32 32 weeks gestation of pregnancy
CPT/HCPCS: 59025; 76815; 76816; 76819

== ENCOUNTER 2024-05-16 13:08 | Outpatient (CLI) | payer OTHER, SELFPAY ==
[2024-05-16 13:34] LABS: Hematocrit 31.9 % (37.0-47.0); Mean Corpuscular HGB Conc 31.3 g/dl (32-36); Mean Corpuscular Hemoglobin 27.5 pg (26-34); Mean Corpuscular Volume 87.6 fl (80-100); Mean Platelet Volume 11.5 fl (7.4-10.4); Platelet Count Result 243 k/mm3 (150-375); Red Blood Count 3.64 M/mm3 (4.2-5.4); Red Cell Distribution Width 18.3 % (11.5-14.5); White Blood Count 9.5 K/mm3 (4.5-10.0)
[2024-05-16 14:30] LABS: HIV 1/2 Ab P24 Ag Result Negative (Negative)
[2024-05-16 18:23] LABS: Rapid Plasma Reagin Non-Reactive (NonReactive)
== END 2024-05-16 13:09 | disposition home or self-care (01) ==
LOC: ANHLAB 13:10
PROVIDERS: PCP Internal Medicine; Visit Provider Obstetrics & Gynecology
DX: Z01.812 Encounter for preprocedural laboratory examination (principal)
CPT/HCPCS: 36415; 59025; 76815; 76819; 85027; 86592; 86703; 86850; 86900; 86901; 86923; G0432

== ENCOUNTER 2024-05-17 05:25 | Inpatient (IN) | payer OTHER, SELFPAY ==
[2024-05-17] VITALS (50 sets, daily range): BP systolic 106–134; BP diastolic 55–95; PULSE 66–91; RESP 16–20; TEMP 36.1–37.2; O2SAT 98–100; BMI 44.4
[2024-05-17] MEDS: ACETAMINOPHEN 500 MG TABLET 1000 MG PO (06:09)
--- NOTE | 2024-05-17 06:14 | LDADM ---
This patient, Aliyah Will, was admitted to Labor/Delivery/Recovery 119 on 05/17/24 at 05:26. Plans for labor, pain management and were discussed with patient. Patient/family oriented to hospital policies and general routines including ID bracelet, bed and alarms, visiting hours, pain management, procedures, bathroom and other care routines, personal items, smoking policy, room service/diet and guest tray routines, infant security routines, and visiting hours. Patient/Family are encouraged to report perceived risks to care and to ask questions if they do not understand what they are told or what they should do. See OBIX for further documentation.
[2024-05-17] MEDS: LACTATED RINGERS 1,000 ML 125 ML IV CONT ×3 (06:20→12:44)
[2024-05-17 06:26] LABS: Glucose Point of Care 92 mg/dl (65-105)
--- NOTE | 2024-05-17 07:13 | P.HP_ITS ---
H&P: HPI History of Present Illness Date/Time: 05/17/24 07:13 Chief Complaint: Elective repeat section and undesired fertility Narrative: patient is a 29-year-old at 39 weeks with an EDC of 05/24. course significant for 3 prior C-sections she is planning on getting a repeat she also has undesired fertility and requests permanent sterilization and will get a bilateral salpingectomy. she has been counseled on all other nonpermanent forms of contraception and vasectomy. course also significant for gestational diabetes insulin requiring. She has had normal surveillance testing. She also has short interval her last C- section and delivery was April of 2023. Risk also BMI of 44. Also course significant for LGA. Review of Systems Review of Systems: All systems reviewed & are unremarkable except as noted in HPI and below Constitutional: Constitutional: Reports no additional constitutional complaints and Denies headache(s) Eyes: Eyes: Denies spots in vision ENT: Reports system reviewed and no additional complaints, except as documented and Denies headache(s) Cardiovascular: Cardiovascular: Denies chest pain and Denies dyspnea Respiratory: Respiratory: Denies dyspnea Gastrointestinal: Gastrointestinal: Reports no additional gastrointestinal complaints Genitourinary: Genitourinary: Reports amenorrhea Musculoskeletal: Musculoskeletal: Reports no additional musculoskeletal complaints Integumentary/Breasts: Skin/Breast: Denies breast mass and Denies rash Neurologic: Denies headache(s) Psychiatric: Psychiatric: Reports no additional psychiatric complaints [facility] Past Medical History Medical History Gestational diabetes mellitus (GDM) controlled on oral hypoglycemic drug Gestational hypertension Missed x1 Surgical History Surgical History H/O abdominal surgery exploratory History of dilation and curettage (~01/2020) for missed AB History of primary section Status post repeat low transverse section (~08/2021) Dr Mansfield Status post repeat low transverse section (~04/2023) Dr Shelby Family History Family History Mother No pertinent family history Other Hypertension Social History Social History Smoking status: Never smoker Second hand tobacco smoke exposure: No Alcohol intake: former Substance use: never Do You Feel Safe in your Home?: Yes Lack of Transportation: No Lack of Food: Never True Current Housing: I Have Housing Concerned About Future Housing: No Difficulty Paying Gas/Electric Bills: No Difficulty Paying for Meds: No Currently Unemployed: No Education: High School Diploma/GED Difficulty w/ Childcare or Family Care: No Living arrangements: with family Occupation/Education: occupation Gender identity (if verbalized by the patient): Female Sexual Orientation (if Verbalized by the Patient): Straight or Heterosexual Spiritual care concerns: No Meds Home Medications and Allergies Home Medications Medication Instructions Recorded Confirmed Type vit no.95-ferrous 1 tablet PO DAILY 01/17/24 05/16/24 History fumarate 28 mg-folic acid 800 mcg tablet () blood sugar diagnostic (OneTouch #100 ea 02/12/24 05/16/24 Rx Verio test strips) blood-glucose meter (OneTouch #1 ea 02/12/24 05/16/24 Rx Verio Flex Meter) lancets 33 gauge #100 ea 02/12/24 05/16/24 Rx omeprazole 20 mg capsule,delayed 20 mg PO DAILY acid reflux 60 04/16/24 05/16/24 Rx release days #60 caps insulin NPH isoph U-100 human 100 48 unit subcut QHS 04/26/24 05/16/24 History unit/mL (3 mL) subcutaneous pen (Humulin N NPH U-100 Insulin KwikPen) Allergies Allergy/AdvReac Type Severity Reaction Status Date / Time No Known Allergies Allergy Verified 05/16/24 09:50 Vital Signs Vital Signs - 24 hr 05/17/24 05:42 05/17/24 05:47 05/17/24 05:52 Temperature Pulse Rate Blood Pressure Pulse Oximetry 100 100 100 Oxygen Delivery 05/17/24 05:57 05/17/24 06:02 05/17/24 06:07 Temperature Pulse Rate Blood Pressure Pulse Oximetry 100 100 100 Oxygen Delivery 05/17/24 06:10 05/17/24 06:15 05/17/24 06:20 Temperature Pulse Rate Blood Pressure Pulse Oximetry 98 99 98 Oxygen Delivery 05/17/24 06:25 05/17/24 06:30 05/17/24 06:31 Temperature Pulse Rate 86 Blood Pressure 126/61 Pulse Oximetry 98 98 Oxygen Delivery 05/17/24 06:09 05/17/24 06:13 Temperature 97.7 F Pulse Rate Blood Pressure Pulse Oximetry Oxygen Delivery Room Air Exam Const: General: no acute distress Eyes: General: appearance normal, both eyes and all related structures Resp: Effort & Inspection: normal respiratory effort Cardio: Rate: regular rate GI: Other: Gravid no fundal tenderness no right upper quadrant pain Skin: General skin exam: no rashes or lesions noted Neuro: Cognition (Neuro): normal cognition Extrem: General: normal to inspection Psych: Mental Status: mental status grossly normal Assessment and Plan Assessment and plan (1) Previous section: Code(s): Z98.891 - History of uterine scar from previous surgery Status: Acute Assessment and Plan: Will proceed with repeat section and bilateral salpingectomy. She has been counseled regarding options risks benefits. (2) Gestational diabetes mellitus (GDM) affecting ninth : Code(s): O24.419 - Gestational diabetes mellitus in , unspecified control; O09.40 - Supervision of with grand multiparity, unspecified trimester Status: Acute (3) Request for sterilization: Code(s): Z30.2 - Encounter for sterilization Status: Acute
[2024-05-17] MEDS: ONDANSETRON INJ 4 MG/2 ML VIAL IV PUSH (07:15)
[2024-05-17] MEDS: FAMOTIDINE 20 MG/2 ML VIAL IV PUSH (07:15)
--- NOTE | 2024-05-17 07:23 | WPDHPUPDATE1 ---
History and Physical Update Update Date/Time: 05/17/24 07:23 History and Physical has been reviewed, including an updated exam of the patient. There are NO changes in the patient's condition. Risks, benefits, and alternatives have been discussed and questions answered. Patient agrees to proceed with procedure.
[2024-05-17] MEDS: ceFAZolin 2 GM/D5W 50 ML 2 GM/50 ML BAG IVPB (07:28)
--- NOTE | 2024-05-17 07:33 | P.PNAN_ITS ---
Anes - Initial Pre Proc Eval Procedure: Operation Date: 05/17/24 07:30 Proposed Procedures p Repeat Section with Tubal Ligation - Azael Shelby MD Date/Time: 05/17/24 07:33 Surgeon: Azael Shelby MD Pre Op Diagnosis: R C/S Patient Data Age: 29 Gender: F Height: 1.55 m Weight: 106.8 kg Last Vital Signs Temp 97.7 F 05/17/24 06:09 Pulse 86 05/17/24 06:31 BP 126/61 05/17/24 06:31 Pulse Ox 98 05/17/24 06:30 O2 Del Method Room Air 05/17/24 06:13 Allergies Allergy/AdvReac Type Severity Reaction Status Date / Time No Known Allergies Allergy Verified 05/16/24 09:50 Home Medications Medication Instructions Recorded Confirmed Type vit no.95-ferrous 1 tablet PO DAILY 01/17/24 05/16/24 History fumarate 28 mg-folic acid 800 mcg tablet () blood sugar diagnostic (OneTouch #100 ea 02/12/24 05/16/24 Rx Verio test strips) blood-glucose meter (OneTouch #1 ea 02/12/24 05/16/24 Rx Verio Flex Meter) lancets 33 gauge #100 ea 02/12/24 05/16/24 Rx omeprazole 20 mg capsule,delayed 20 mg PO DAILY acid reflux 60 04/16/24 05/16/24 Rx release days #60 caps insulin NPH isoph U-100 human 100 48 unit subcut QHS 04/26/24 05/16/24 History unit/mL (3 mL) subcutaneous pen (Humulin N NPH U-100 Insulin KwikPen) Laboratory Tests 05/17/24 06:24 POC Capillary Glucose 92 mg/dl (65-105) Patient hx anesthesia problems: none Family hx anesthesia problems: none Results Review: All pre-operative results and documents have been reviewed as part of the pre- operative evaluation. [facility] Past Medical History Medical History Gestational diabetes mellitus (GDM) controlled on oral hypoglycemic drug Gestational hypertension Missed x1 Surgical History Surgical History H/O abdominal surgery exploratory History of dilation and curettage (~01/2020) for missed AB History of primary section Status post repeat low transverse section (~08/2021) Dr Mansfield Status post repeat low transverse section (~04/2023) Dr Shelby Family History Family History Mother No pertinent family history Other Hypertension Social History Social History Smoking status: Never smoker Second hand tobacco smoke exposure: No Alcohol intake: former Substance use: never Do You Feel Safe in your Home?: Yes Lack of Transportation: No Lack of Food: Never True Current Housing: I Have Housing Concerned About Future Housing: No Difficulty Paying Gas/Electric Bills: No Difficulty Paying for Meds: No Currently Unemployed: No Education: High School Diploma/GED Difficulty w/ Childcare or Family Care: No Living arrangements: with family Occupation/Education: occupation Gender identity (if verbalized by the patient): Female Sexual Orientation (if Verbalized by the Patient): Straight or Heterosexual Spiritual care concerns: No Anes - Eval Final PreProcedure Day of Procedure 05/17/24 07:33 Patient weight: morbidly obese Heart: regular rate and rhythm Lungs: clear to auscultation Airway: Mallampati scale class II and class III Neurological: alert and oriented Last oral intake: >/= 8 hours ASA classification: III Emergent: no Anesthetic plan: proceed Anesthesia type and monitoring: regional spinal and standard monitoring Results Review: All pre-operative results and documents have been reviewed as part of the pre- operative evaluation. Hx gest DM, HTN, MO. Plts nml range. Informed Consent: The patient's anesthetic plan and its attendant risks and benefits were discussed with the patient/family/POA. Questions were solicited and answers provided to the satisfaction of the patient/family/POA.
[2024-05-17] MEDS: METHYLERGONOVINE MALEATE 0.2 MG/ML VIAL IM (08:10)
--- NOTE | 2024-05-17 09:18 | W.PM.OBCSD ---
OB - Delivery Note Procedure Delivery date: 05/17/24 Pre-op diagnosis: Gestational Diabetes, Previous Delivery and Other ( requests permanent sterilization) Post-op Diagnosis: Same Induction method: None Delivery monitor: None Prior to decision for section, [facility] labor guidelines were considered and discussed with the patient and staff. Decision made to proceed with the section.: Yes Procedure Performed: Repeat and Tubal Ligation Surgeon: Azael Shelby MD Anesthesia type: Spinal Description of Procedure/Findings: Findings male infant 10 lb 4 oz OT presentation normal fallopian tubes and ovaries. After informed consent, risks and benefits of the procedure was discussed with the patient. The patient was taken to the operating room And spinal analgesia was placed. she was then placed in the dorsal lithotomy position with leftward tilt. , she was then prepped and draped in the usual sterile fashion. A Pfannenstiel skin incision was made with a scalpel and carried through to the underlying layer of fascia along prior scar. The fascia was incised.The fascia was very scarred to the rectus muscles was dissected off the rectus muscles bluntly and sharply, superiorly and inferiorly. The rectus muscles were in the midline, and peritoneum was identified and entered bluntly. The pelvic organs were visualized. The bladder blade was then inserted. The vesicouterine peritoneum was identified and entered sharply with Metzenbaum scissors and extended bilaterally and then the bladder flap was created digitally. The low transverse uterine incision was then made with the scalpel and extended with bilateral index fingers in a crescent-shaped fashion. The head was delivered and the rest of the was delivered. The nose and mouth were suction with bulb. The cord was clamped twice and cut. The was then handed off to the awaiting pediatric staff. The placenta was then delivered manually. The uterine cavity was sponge curetted. she initially had uterine mild hypotonia. Uterine massage was performed and and anesthesia was instructed to give her 0.2 mg of Methergine IM. Tone improved. The uterus was then exteriorized. The uterine incision was then closed with 0 vicryl in a running locked fashion. Hemostasis noted. A second layer of 0 vicryl was used in an imbricating fashion for hemostasis. attention was turned to her right fallopian tube which was ligated with the LigaSure to within a few cm of entrance to the uterus the same was done on the left side. The posterior cul-de-sac was cleared of clot and debris and irrigated. The uterus was then returned to the abdomen. Bilateral gutters were cleared off all clots and debris. The uterine incision was noted to be hemostatic.The muscle bellies were inspected and noted to be hemostatic. The subfascial layer was noted to be hemostatic, and the fascia was closed with 0 PDS in a running fashion x2. The subcutaneous layer irrigated hemostasis obtained with cautery was then approximated with 3-0 Vicryl. The skin was closed with Ensorb april. Skin dermabond applied at incision. Mepilex was applied to incision. All instruments, needle, and lap counts were correct x3. The patient was taken to the recovery room in stable condition. Specimen: Yes ( placenta and cord) Estimated Blood Loss: 750 Drains: No Packing: No Pathology: Yes ( placenta and cord) Complications: No immediate complications Condition: Stable Disposition: Floor [place] Baby Date of : 05/17/24 Gestational Age by Date: 39 Infant gender: Female Weight (pounds): 10 Weight (ounces): 4 presentation: vertex position: Transverse Placenta delivery description: Manual Removal Cord Vessel Description: 3 Vessels score one minute: 8 score five minutes: 9
[2024-05-17] MEDS: LIDOCAINE 5% PATCH 1 PATCH TRANSDERM ×2 (10:12→22:30)
[2024-05-17] MEDS: HYDROcodone/acetaminophen (*CRX) 5-325 MG TABLET 1 TAB PO (10:17)
[2024-05-17] MEDS: MORPHINE SULFATE INJ (*CRX) 10 MG/ML AMP 2 MG IV PUSH ×2 (10:18→10:50)
[2024-05-17] MEDS: SIMETHICONE 80 MG TAB.CHEW PO ×2 (12:44→16:23)
[2024-05-17] MEDS: KETOROLAC 15 MG/ML VIAL (*BKC) IV PUSH ×2 (12:44→18:45)
[2024-05-17] MEDS: ACETAMINOPHEN 325 MG TABLET 650 MG PO ×2 (12:45→18:45)
--- NOTE | 2024-05-17 13:43 | OBPPTRN ---
1200-Patient transferred to post room #291 via stretcher. Support person present. Oriented to unit, room, information board, rooming in, admission packet and security measures. Patient verbalizes understanding.
[2024-05-17] MEDS: DOCUSATE SODIUM 100 MG CAPSULE PO (16:23)
[2024-05-18] VITALS (12 sets, daily range): BP systolic 97–125; BP diastolic 61–72; PULSE 78–108; RESP 18–20; TEMP 36.2–37.4; O2SAT 98–100
[2024-05-18] MEDS: KETOROLAC 15 MG/ML VIAL (*BKC) IV PUSH ×2 (00:44→07:02)
[2024-05-18] MEDS: ACETAMINOPHEN 325 MG TABLET 650 MG PO ×4 (00:45→19:47)
[2024-05-18 04:48] LABS: Basophils Percent Auto 0.3 % (0.2-1.2); Eosinophils Absolute Auto 0.2 K/mm3 (0-0.3); Eosinophils Percent Auto 2.4 % (0-4.4); Hemoglobin 7.1 g/dL (12.0-15.0); Immature Granulocyte Absolute 0.04 K/mm3 (0.00-0.031); Immature Granulocyte Percent A 0.6 % (0-0.5); Lymphocytes Absolute Auto 2.25 K/mm3 (0.9-3.2); Lymphocytes Percent Auto 31.1 % (18.3-44.2); Mean Corpuscular HGB Conc 32.3 g/dl (32-36); Mean Corpuscular Hemoglobin 28.4 pg (26-34); Mean Platelet Volume 11.3 fl (7.4-10.4); Monocytes Absolute Auto 0.6 K/mm3 (0.1-0.6); Monocytes Percent Auto 8.4 % (2.6-8.5); Neutrophils Absolute Auto 4.1 K/mm3 (1.3-6.7); Neutrophils Percent Auto 57.2 % (45.5-73.1); Platelet Count Result 177 k/mm3 (150-375); Red Cell Distribution Width 18.5 % (11.5-14.5); White Blood Count 7.2 K/mm3 (4.5-10.0)
[2024-05-18] MEDS: LACTATED RINGERS 1,000 ML 125 ML IV CONT (05:35)
--- NOTE | 2024-05-18 05:46 | PC.NURSE ---
0545- pt up oob with standby assist of this RN, pt stated that she was dizzy, pt then assisted back into bed. FC not discontinued and 1 liter bag of LR hung. Pt am labs back and significant drip in hgb noted. Will endorse to day RN to notify Dr. Severino. Pt aware not to get oob without assistance of staff.
[2024-05-18] MEDS: SIMETHICONE 80 MG TAB.CHEW PO ×3 (07:02→17:07)
--- NOTE | 2024-05-18 08:04 | PM.OBPNVD ---
OB - PN: Subj Subjective Date/time seen: 05/18/24 08:04 Patient comments: no complaints, pain well controlled, tolerating diet and flatus present OB - PN: Obj Data Labs 05/18/24 04:24 Labs: Laboratory Results - last 24 hr 05/18/24 04:24 WBC 7.2 RBC 2.50 L Hgb 7.1 L Hct 22.0 L MCV 88.0 MCH 28.4 MCHC 32.3 RDW 18.5 H Plt Count 177 MPV 11.3 H Immature Gran % (Auto) 0.6 H Neut % (Auto) 57.2 Lymph % (Auto) 31.1 [place]ove % (Auto) 8.4 Eos % (Auto) 2.4 Baso % (Auto) 0.3 Lymph # (Auto) 2.25 [place] # (Auto) 0.6 Eos # (Auto) 0.2 Baso # (Auto) 0.0 Abs Immat Gran (auto) 0.04 H Absolute Neuts (auto) 4.1 Absolute Nucleated RBC 0.000 Nucleated RBC % 0.0 OB - PN A/P Plan day: 1 Plan: routine care Comments: patient doing well H/H 7.07/24, pt did reports some dizziness with attempt to ambulate recommended blood transfusion. Risks, benefits, alternatives discussed. Will plan for 2 u pRBC afebrile, VSS incision C/D/I mancia removed, voiding spontaneously continue routine post op care anticipate d/c home tomorrow Time Spent With Patient Time: Total time spent is greater than 50% in coordination of care (as documented) at patient's floor/unit and/or counseling patient: Time with patient: less than 15 minutes Review of Systems Constitutional: Constitutional: Reports no additional constitutional complaints Cardiovascular: Cardiovascular: Reports no additional cardiovascular complaints Respiratory: Respiratory: Reports no additional respiratory complaints Gastrointestinal: Gastrointestinal: Reports no additional gastrointestinal complaints Genitourinary: Genitourinary: Reports no additional female genitourinary complaints Exam Const: General: comfortable and no acute distress Resp: Effort & Inspection: normal respiratory effort Auscultation: clear to auscultation bilaterally Cardio: Rate: regular rate GI: GI Palp: Yes Soft to palpation, Yes Tenderness to palpation present (GI) (around incision ) and No Guarding due to palpation present (GI) Auscultation: normal bowel sounds Other: incision C/D/I, covered with Dermabond Psych: Appearance: grossly normal Mental Status: mental status grossly normal Affect: normal affect
--- NOTE | 2024-05-18 08:08 | P.DS_ITS ---
DS: Admitting Diagnosis Discharge Date 05/20/24 <Rubén Miramontes MD - Last Filed: 05/19/24 11:06> Admitting Diagnosis intrauterine at term gestational diabetes history sections desires permanent sterilization obesity <Rubén Miramontes MD - Last Filed: 05/19/24 11:06> DS: Discharge Diagnosis Discharge Diagnosis (1) delivery delivered: Code(s): O82 - Encounter for delivery without indication <Rubén Miramontes MD - Last Filed: 05/19/24 11:06> Status: Acute <Rubén Miramontes MD - Last Filed: 05/19/24 11:06> Assessment and Plan: POD 4 Discharge home Doing well. Pain is well controlled. Follow up in office in one week. Discussed S&S to call office in detail <Keturah Perez APRN - Last Filed: 05/20/24 08:32> OB - DS: Summary Hospital Course Hospital Course: Repeat section with bilateral salpingectomy with full term female . History of GDMA2 and LGA HGB 7.1 POD 1 Received 2 units PRBCs Hemoglobin up to 8.6 <Rubén Miramontes MD - Last Filed: 05/19/24 11:06> OB Procedures : None <Rubén Miramontes MD - Last Filed: 05/19/24 11:06> OB Procedures Intrapartum: <Rubén Miramontes MD - Last Filed: 05/19/24 11:06> Tubal ligation <Keturah Perez APRN - Last Filed: 05/20/24 08:32> OB Procedures: : None and P.P. tubal ligation <Rubén Miramontes MD - Last Filed: 05/19/24 11:06> Peripartum Data Delivery Method: Section <Rubén Miramontes MD - Last Filed: 05/19/24 11:06> Laceration Description: None <Keturah Perez APRN - Last Filed: 05/20/24 08:32> Episiotomy description: None <Keturah Perez APRN - Last Filed: 05/20/24 08:32> Procedures: Procedures Operation Date: 05/17/24 07:30 Actual Procedure Side Surgeon p Repeat Section with Tubal Ligation Bilateral Azael Shelby MD <Rubén Miramontes MD - Last Filed: 05/19/24 11:06> complications: none <Rubén Miramontes MD - Last Filed: 05/19/24 11:06> transfusion <Keturah Perez APRN - Last Filed: 05/20/24 08:32> Status at Discharge Functional status at discharge: independent ambulation <Rubén Miramontes MD - Last Filed: 05/19/24 11:06> Overall status at discharge: patient is progressing back to baseline <Rubén Miramnotes MD - Last Filed : 05/19/24 11:06> Time Spent with Patient Time attestation: Total time spent providing and/or coordinating discharge services: <Rubén Miramontes MD - Last Filed: 05/19/24 11:06> Time spent: Less than 30 minutes <Rubén Miramontes MD - Last Filed: 05/19/24 11:06> Exam Const: General: comfortable and no acute distress <Rubén Miramontes MD - Last Filed: 05/19/24 11:06> Orientation/consciousness: patient oriented x3 <Keturah Perez APRN - Last Filed: 05/20/24 08:32> Resp: Effort & Inspection: normal respiratory effort <Rubén Miramontes MD - Last Filed: 05/19/24 11:06> Effort & Inspection: able to speak in complete sentences <Keturah Perez APRN - Last Filed: 05/20/24 08:32> Auscultation: clear to auscultation bilaterally <Rubén Miramontes MD - Last Filed: 05/19/24 11:06> Cardio: Rate: regular rate <Rubén Miramontes MD - Last Filed: 05/19/24 11:06> Rhythm: regular rhythm <Keturah Perez APRN - Last Filed: 05/20/24 08:32> GI: Inspection: non-distended <Rubén Miramontes MD - Last Filed: 05/19/24 11:06> GI Palp: Yes Soft to palpation, No Firmness to palpation present (GI), Yes Tenderness to palpation present (GI) (mild tenderness over incision ) and No Guarding due to palpation present (GI) <Rubén Miramontes MD - Last Filed: 05/19/24 11:06> Auscultation: normal bowel sounds <Rubén Miramontes MD - Last Filed: 05/19/24 11:06> Skin: General skin exam: normal color <Keturah Perez [employer] - Last Filed: 05/20/24 08:32> Other: Incision clean, dry and intact <Keturah Perez [employer] - Last Filed: 05/20/24 08:32> Extrem: General: normal to inspection, full ROM and no edema <Keturah Perez [employer] - Last Filed: 05/20/24 08:32> Psych: Appearance: grossly normal <Rubén Miramontes MD - Last Filed: 05/19/24 11:06> Mental Status: mental status grossly normal <Rubén Miramontes MD - Last Filed: 05/19/24 11:06> DS: Data Data Completed and Pending Pending studies at discharge: Pending at discharge 05/17/24 09:46 Surgical [PTH] Routine <Rubén Miramontes MD - Last Filed: 05/19/24 11:06> Labs on day of discharge: Labs from last 24 hours 05/18/24 04:24 WBC 7.2 RBC 2.50 L Hgb 7.1 L Hct 22.0 L MCV 88.0 MCH 28.4 MCHC 32.3 RDW 18.5 H Plt Count 177 MPV 11.3 H Immature Gran % (Auto) 0.6 H Neut % (Auto) 57.2 Lymph % (Auto) 31.1 Petroleum % (Auto) 8.4 Eos % (Auto) 2.4 Baso % (Auto) 0.3 Lymph # (Auto) 2.25 Petroleum # (Auto) 0.6 Eos # (Auto) 0.2 Baso # (Auto) 0.0 Abs Immat Gran (auto) 0.04 H Absolute Neuts (auto) 4.1 Absolute Nucleated RBC 0.000 Nucleated RBC % 0.0 <Rubén Miramontes MD - Last Filed: 05/19/24 11:06> Discharge Plan Discharge Attending physician on discharge: Azael Shelby <Rubén Miramontes MD - Last Filed: 05/19/24 11:06> Azael Shelby <Keturah Perez APRN - Last Filed: 05/20/24 08:32> Discharging Clinician: Keturah Perez <Rubén Miramontes MD - Last Filed: 05/19/24 11:06> Keturah Perez <Keturah Perez APRN - Last Filed: 05/20/24 08:32> Anticipated Discharge Date/Time: 05/20/24 08:23 <Rubén Miramontes MD - Last Filed: 05/19/24 11:06> Patient Disposition: Home, Self-Care <Rubén Miramontes MD - Last Filed: 05/19/24 11:06> Activity: may shower, no driving, as tolerated and pelvic rest <Rubén Miramontes MD - Last Filed: 05/19/24 11:06> may shower, no driving, as tolerated and pelvic rest <Keturah Perez APRN - Last Filed: 05/20/24 08:32> Diet: heart healthy <Rubén Miramontes MD - Last Filed: 05/19/24 11:06> heart healthy <Keturah Perez APRN - Last Filed: 05/20/24 08:32> Wound Care Instructions: incision open to air <Rubén Miramontes MD - Last Filed: 05/19/24 11:06> incision open to air <Keturah Perez APRN - Last Filed: 05/20/24 08:32> Patient Instructions: Antibiotic Form, (DC) <Rubén Miramontes MD - Last Filed: 05/19/24 11:06> Stand Alone Forms: General Discharge Information <Rubén Miramontes MD - Last Filed: 05/19/24 11:06> Follow-up/Referrals: Azael Shelby MD [Physician] - <Rubén Miramontes MD - Last Filed: 05/19/24 11:06> Discharge Medications: New oxycodone-acetaminophen 5-325 mg tablet 1 tablet PO Q6H PRN (Reason: pain) Qty: 28 0RF docusate sodium 100 mg Capsule 100 mg PO BID Qty: 30 0RF polysaccharide iron complex 150 mg iron Capsule 150 mg PO BIDWM Qty: 90 0RF ibuprofen 600 mg Tablet 600 mg PO Q6H Qty: 30 0RF Continued omeprazole 20 mg capsule,delayed release(DR/EC) 20 mg PO DAILY MDD 20 mg 60 Days Qty: 60 0RF PNV [id number]-ferrous fumarate-FA [] 28 mg iron- 800 mcg Tablet 1 tablet PO DAILY Discontinued Humulin N NPH Insulin KwikPen 100 unit/mL (3 mL) insulin pen 48 unit subcut QHS Rx Instructions: please include needles No Action (DME) blood-glucose meter [OneTouch Verio Flex meter] Misc See Rx Instructions .ROUTE .MEDSUPPLY Qty: 1 0RF Rx Instructions: As directed (DME) lancets 33 gauge misc See Rx Instructions .ROUTE .MEDSUPPLY Qty: 100 3RF Rx Instructions: QID: fasting and 1 hr after breakfast, lunch, and dinner. (DME) OneTouch Verio test strips Strip See Rx Instructions .ROUTE .MEDSUPPLY Qty: 100 3RF Rx Instructions: QID: fasting and 1 hr after breakfast, lunch, and dinner. <Rubén Miramontes MD - Last Filed: 05/19/24 11:06> Date of admission: 05/17/24 05:25 <Rubén Miramontes MD - Last Filed: 05/19/24 11:06> Primary Care Provider: Leann,Zachariah Rodriguez <Rubén Miramontes MD - Last Filed: 05/19/24 11:06> Admitting Provider: Azael Shelby <Rubén Miramontes MD - Last Filed: 05/19/24 11:06> Attending physician on admission: Azael Shelby <Rubén Miramontes MD - Last Filed: 05/19/24 11:06> Condition: Stable <Rubén Miramontes MD - Last Filed: 05/19/24 11:06>
[2024-05-18] MEDS: HYDROcodone/acetaminophen (*CRX) 5-325 MG TABLET 1 TAB PO (09:27)
[2024-05-18] MEDS: LIDOCAINE 5% PATCH 1 PATCH TRANSDERM (09:28)
[2024-05-18] MEDS: POLYSACCHARIDE IRON COMPLEX 150 MG CAPSULE PO ×2 (09:28→17:07)
[2024-05-18] MEDS: DOCUSATE SODIUM 100 MG CAPSULE PO ×2 (09:28→17:07)
[2024-05-18] MEDS: PANTOPRAZOLE 40 MG TABLET PO (09:28)
[2024-05-18] MEDS: MULTIVIT/MIN/PREN/FOL AC/IRON TABLET 1 TAB PO (09:28)
[2024-05-18] MEDS: SODIUM CHLORIDE 0.9% IV 250 ML 30 ML IV CONT (09:29)
--- NOTE | 2024-05-18 12:28 | WPDANLDPN2 ---
Anes-Prog Note L&D Date/Time: 05/18/24 12:28 Comfortable throughout: section Neuraxial method: spinal Epidural/Spinal procedure site: clean & non-tender Neuro status: Neuro function grossly intact. catheter intact Cardiovascular status: normal Respiratory status: normal Airway patency: baseline Mental status: baseline Post-Op hydration status: normal (receiving 2u PRBC) Vital Signs: Last Vital Signs Temp 36.8 C 05/18/24 11:29 Pulse 107 H 05/18/24 11:29 Resp 20 05/18/24 11:29 BP 125/64 05/18/24 11:29 Pulse Ox 98 05/18/24 11:29 O2 Del Method Room Air 05/17/24 12:00 Pain score (VAS): 3 I/O: Intake & Output 05/17/24 05/18/24 05/18/24 23:59 07:59 15:59 Intake Total 1250.0 600 0 Output Total 400 800 Balance 850.0 -200 0 Post-procedural complaints: none Patient feedback: Patient satisfied with anesthetic care.
--- NOTE | 2024-05-18 12:29 | WPDANLDNPN2 ---
Anes-Prog Note L&D-Neuraxial Date/Time: 05/18/24 12:29 Neuraxial medications: intrathecal PF morphine Opiod-related complaints: none Patient feedback: Patient satisfied with post-operative pain management.
[2024-05-18] MEDS: IBUPROFEN 600 MG TABLET PO ×2 (12:42→19:46)
[2024-05-18] MEDS: HYDROcodone/acetaminophen (*CRX) 10-325 MG TABLET 1 TAB PO ×2 (17:16→20:33)
[2024-05-19] MEDS: HYDROcodone/acetaminophen (*CRX) 10-325 MG TABLET 1 TAB PO (00:08)
[2024-05-19] MEDS: IBUPROFEN 600 MG TABLET PO ×4 (01:50→21:02)
[2024-05-19] MEDS: ACETAMINOPHEN 325 MG TABLET 650 MG PO ×4 (01:50→21:01)
[2024-05-19] MEDS: HYDROcodone/acetaminophen (*CRX) 5-325 MG TABLET 1 TAB PO ×3 (04:30→21:01)
[2024-05-19 04:47] LABS: Hematocrit 26.8 % (37.0-47.0); Hemoglobin 8.6 g/dL (12.0-15.0); Mean Corpuscular HGB Conc 32.1 g/dl (32-36); Mean Corpuscular Hemoglobin 28.2 pg (26-34); Mean Corpuscular Volume 87.9 fl (80-100); Mean Platelet Volume 11.3 fl (7.4-10.4); Platelet Count Result 227 k/mm3 (150-375); Red Blood Count 3.05 M/mm3 (4.2-5.4); Red Cell Distribution Width 17.5 % (11.5-14.5); White Blood Count 8.5 K/mm3 (4.5-10.0)
[2024-05-19 08:25] VITALS: BP 111/62; PULSE 90; RESP 18; TEMP 36.7
[2024-05-19] MEDS: LIDOCAINE 5% PATCH 1 PATCH TRANSDERM (08:29)
[2024-05-19] MEDS: SIMETHICONE 80 MG TAB.CHEW PO ×3 (08:30→17:19)
[2024-05-19] MEDS: PANTOPRAZOLE 40 MG TABLET PO (08:30)
[2024-05-19] MEDS: DOCUSATE SODIUM 100 MG CAPSULE PO ×2 (08:30→17:19)
[2024-05-19] MEDS: MULTIVIT/MIN/PREN/FOL AC/IRON TABLET 1 TAB PO (08:31)
[2024-05-19] MEDS: POLYSACCHARIDE IRON COMPLEX 150 MG CAPSULE PO ×2 (08:31→17:19)
--- NOTE | 2024-05-19 11:00 | PM.OBPNVD ---
OB - PN: Subj Subjective Date/time seen: 05/19/24 11:00 Interval history: Pt doing well this morning. Patient is having some moderate pain. She requests to stay one more night in hospital. Patient states she feels better after the blood transfusion. Patient comments: no complaints, pain well controlled, tolerating diet and flatus present OB - PN: Obj Data Labs 05/19/24 04:21 Labs: Laboratory Results - last 24 hr 05/16/24 05/19/24 13:18 04:21 WBC 8.5 RBC 3.05 L Hgb 8.6 L Hct 26.8 L MCV 87.9 MCH 28.2 MCHC 32.1 RDW 17.5 H Plt Count 227 MPV 11.3 H Crossmatch See Detail OB - PN A/P Plan day: 2 Plan: routine care Comments: patient doing well H/H after 2 u pRBC blood transfusion afebrile, VSS incision C/D/I continue routine post op care Time Spent With Patient Time: Total time spent is greater than 50% in coordination of care (as documented) at patient's floor/unit and/or counseling patient: Time with patient: less than 15 minutes Review of Systems Constitutional: Constitutional: Reports no additional constitutional complaints Cardiovascular: Cardiovascular: Reports no additional cardiovascular complaints Respiratory: Respiratory: Reports no additional respiratory complaints Gastrointestinal: Gastrointestinal: Reports no additional gastrointestinal complaints Genitourinary: Genitourinary: Reports no additional female genitourinary complaints Exam Const: General: comfortable and no acute distress Resp: Effort & Inspection: normal respiratory effort Auscultation: clear to auscultation bilaterally Cardio: Rate: regular rate GI: GI Palp: Yes Soft to palpation, Yes Tenderness to palpation present (GI) (around incision ) and No Guarding due to palpation present (GI) Auscultation: normal bowel sounds Other: incision C/D/I, covered with Dermabond Psych: Appearance: grossly normal Mental Status: mental status grossly normal Affect: normal affect
[2024-05-19 21:00] VITALS: BP 104/61; PULSE 91; RESP 18; TEMP 36; O2SAT 100
[2024-05-20] MEDS: HYDROcodone/acetaminophen (*CRX) 10-325 MG TABLET 1 TAB PO ×2 (00:10→05:39)
[2024-05-20] MEDS: ACETAMINOPHEN 325 MG TABLET 650 MG PO ×2 (03:11→09:35)
[2024-05-20] MEDS: IBUPROFEN 600 MG TABLET PO ×2 (03:11→09:35)
[2024-05-20 05:43] VITALS: BP 112/74; PULSE 88; RESP 16; TEMP 36.6; O2SAT 99
[2024-05-20 07:30] VITALS: BP 122/72; PULSE 80; RESP 16; TEMP 36.9; O2SAT 98
[2024-05-20] MEDS: SIMETHICONE 80 MG TAB.CHEW PO (09:35)
[2024-05-20] MEDS: MULTIVIT/MIN/PREN/FOL AC/IRON TABLET 1 TAB PO (09:35)
[2024-05-20] MEDS: DOCUSATE SODIUM 100 MG CAPSULE PO (09:35)
[2024-05-20] MEDS: PANTOPRAZOLE 40 MG TABLET PO (09:35)
[2024-05-20] MEDS: POLYSACCHARIDE IRON COMPLEX 150 MG CAPSULE PO (09:36)
[2024-05-20 10:10] VITALS: BP 121/57; PULSE 82; RESP 14; O2SAT 98
--- NOTE | 2024-05-20 10:18 | PC.NURSE ---
Called Dr. Shelby's office, she is not in the office today, told to call advanced manufacturing consultant. Dr. Pastor called and notified that patient took a shower and felt dizzy and lightheaded. BP within normal limits, may continue with discharge today. Encourage pt to increase fluid intake and make sure she is eating meals.
[2024-05-21 09:41] VITALS: BP 135/75; PULSE 86; RESP 18; TEMP 36.5; O2SAT 100
--- NOTE | 2024-05-21 15:17 | PC.NURSE ---
During assessment, patient stated she was having some feelings of depression and sadness the previous night. FOB also asked if Patient would have an aversion to their other children at home. Asked if there had been any issues currently, patient states that her other kids havent been at home with them yet. Discussed with patient to make Dr. Shelby aware if symptoms continue to worsen. Also called and spoke with Dr. Shelby regarding patient assessment.
== END 2024-05-20 12:15 | disposition home or self-care (01) | DRG 785 ==
LOC: ANHSURGERY 06:28 → ANHLDR 06:29 → ANHOB2 12:12
PROVIDERS: Student in an Organized Health Care Education/Training Program; Admitting Provider Obstetrics & Gynecology; PCP Internal Medicine; Visit Provider Obstetrics & Gynecology
PROC: 10D00Z1 Extraction of Products of Conception, Low, Open Approach (ICD-10-PCS; CPT 59514; principal; 2024-05-17 07:30)
DX: O34.211 Maternal care for low transverse scar from previous cesarean delivery (principal); Z37.0 Single live birth; Z3A.39 39 weeks gestation of pregnancy; O99.824 Streptococcus B carrier state complicating childbirth; O24.429 Gestational diabetes mellitus in childbirth, unspecified control; Z30.2 Encounter for sterilization
CPT/HCPCS: 36415; 36430; 82948; 85025; 85027; 86923; 88302; 88307; A9270; J0690; J1885; J2210; J2270; J2274; J2371; J2405; J2590; J7050; J7120; P9016

== ENCOUNTER 2024-08-25 12:50 | Emergency (ER) | payer OTHER, SELFPAY ==
--- NOTE | ~2024-08-25 | US_ITS ---
All EXAM: ABDOMEN ULTRASOUND HISTORY: right upper quadrant, epigastric pain COMPARISON: None FINDINGS: LIVER: The liver is unremarkable in echogenicity and size. The portal vein is patent, demonstrating hepatopedal flow. The contour of the liver is smooth. GALLBLADDER: No stones are identified within the gallbladder, which is otherwise unremarkable. No gallbladder wall thickening or pericholecystic fluid. BILE DUCTS: Common bile duct measures 2.6mm. PANCREAS: Limited evaluation of the pancreas secondary to overlying bowel gas IMPRESSION: Unremarkable sonographic evaluation of the right upper quadrant, as detailed above. Reviewed, dictated and finalized at location A. DWIDE CHIEF CREATIVE OFFICER IMPRESSION: Unremarkable sonographic evaluation of the right upper quadrant, as detailed ab ove.
[2024-08-25 12:53] VITALS: BP 120/57; PULSE 81; RESP 14; TEMP 36.8; O2SAT 100
--- OUTSIDE RECORDS SUMMARY | 2024-08-25 12:53 | XMS_ITS ---
Care Plan - [facility] Created on: August 25, 2024 LINA AMAYA : 1995 Sex: Female Author Organization [facility] Address [address] [place] [address] Phone Care Team Providers Care Brand Inspector Name Role Phone DANIEL BROWN, ABDULAZIZ Lema Primary Care Provider
--- OUTSIDE RECORDS SUMMARY | 2024-08-25 12:53 | XMS_ITS | Data Portability ---
Author Organization [facility] [place] Address [address] [place] [address] [place] [address] Assessment No assessment recorded. Plan of Treatment Reminders Order Date Submit Date Provider Last Modified By Organization Details Last Modified Time Details Appointments None recorded. Lab abo group + rh type, blood 2019 [facility] ([facility]), [address] [facility] [facility] [address], [place], [address], 0 08:57:33 antibody screen, serum or plasma 2019 [facility] ([facility]), [address] [facility], [place], [address], 1 05:08:25 Referral None recorded. Procedures None recorded. Surgeries None recorded. Imaging US, obstetric, transvagina l 2019 [facility] [place], [address], [address], [place], [address], 0 16:12:35 US, obstetric, transvagina l 2019 [facility] [place], [address], [address], [place], [address], 0 15:15:03 Medication Orders None recorded. Patient TargetsNo targets recorded. Patient InstructionsNo instructions recorded. Reason for Referral None Reported. Results Created Date Observation Date Name Description Value Unit Range Abnormal Flag Note LastModifiedBy Organization Detail LastModifiedTime 12/26/19 20 12/27/2019 abo group + rh type, blood ABO type, blood bank A Not Available [facility] ([facility]) [facility], [place], [address], 12/27/2019 08:57:33 12/26/19 20 12/27/2019 abo group + rh type, blood Rh typing, blood bank POSITI VE RH testi ng resul ts (RH Posit flor/R H Negat flor) are depen dent upon reage nt formu latio ns, techn ical perfo rmanc e of assay , and testi ng platf orm or metho dolog y. With the elimi natio n of routi ne testi ng for the weak expre ssion of the D antig en, some patie nts who have previ ously been class ified as RH Posit flor many now be repor hugo as RH Negat flor, or rarel y, vice versa . If you have any quest ions regar ding this test, pleas e call our Clien t Servi iliana depar tment . Not Available [facility] ([facility]) [address] [place] [address] [address], [place], [address], 12/27/2019 08:57:33 12/26/19 20 12/30/2019 pap, LB Pap test thin prep Negati ve for Intrae pithel ial Lesion or Malign rosy normal ACCES JULIA #: [id number] [facility] e: Cervi brad/E ndoce rvica l LMP: Date Taken : 12/25 Speci men Type: ThinP rep Vial Date Repor hugo: 2019 Clini brad Data: Pregn ant Cytot ech: CYRUS Pillai( CP) Date Repor hugo: 2019 Speci men Adequ acy: Satis facto ry for evalu ation Endoc ervic al/tr ansfo rmati on zone compo nent prese nt Gener al Categ oriza tion: NEGAT FLOR FOR INTRA EPITH ELIAL LESIO N OR MALIG BRADY The follo wing tests have been order ed as reque sted and a separ ate repor t will be issue d: Chlam ydia, Gonor rhoea e, and Trich omona s This speci men has been florin zed by the ThinP rep Imagi ng Syste m, an inter activ e compu ter syste m which demetri ts the lab in the scree concha of ThinP rep Pap Test slide s. Follo wing imagi ng, the slide was revie wed by a Cytot echno logis t and/o r Patho logis t. End of t Techn ical servi iliana provi ded by [facility] [place], [facility], [facility], [address] [place] [address] Prabhakar Newby MD, Labor atory Direc tor. Case revie wed and diagn osis rende red at [facility]ated Patho logis [place], [facility], d/b/a [facility], [address] [place] [address] Prabhakar Newby MD, Labor atory Dire tor. CONFI DENTI AL Not Available [facility] ([facility]) [address], [place], [address], 12/30/2019 14:34:07 12/26/19 20 12/30/2019 CT + NG DNA, PCR, unspe cifie d speci men trichomonas vaginalis, aptima (panther) NOT DETECT ED normal DNA testi ng perfo rmed by Trans c[employer] ion [employer] hugo Ampli ficat ion (TMA) These resul ts shoul d be inter prete d in light of all clini brad and labor atory findi ngs. This assay is highl y accur ate, but rare false posit flor and negat flor resul ts may occur . Posit flor resul ts in low preva lence popul ation s may requi re re-ev aluat ion. A negat flor resul t does not precl ude a possi ble infec tion due to a speci men inade quacy or sampl ing error . Test perfo rmed by [facility], [facility], d/b/a [facility], [address], [place] [address] , Terry Ortega ra, , Labor atory Direc tor. Not Available [facility]) [facility] [address], [place], [address], 12/30/2019 14:34:08 12/26/19 20 12/30/2019 CT + NG DNA, PCR, unspe cifie d speci men neisseria gonorrhoeae, aptima NOT DETECT ED normal DNA testi ng perfo rmed by [employer] hugo Ampli ficat ion (TMA) These resul ts shoul d be inter prete d in light of all clini brad and labor atory findi ngs. This assay is highl y accur ate, but rare false posit flor and negat flor resul ts may occur . Posit flor resul ts in low preva lence popul ation s may requi re re-ev aluat ion. A negat flor resul t does not precl ude a possi ble infec tion due to a speci men inade quacy or sampl ing error . Test perfo rmed by [facility], [employer], d/b/a [facility], [address], [place] [address] , Terry Ortega ra, , Labor atory Direc tor. Not Available [facility] ([facility]) [facility] [address], [place], [address], 12/30/2019 14:34:08 12/26/19 20 12/30/2019 CT + NG DNA, PCR, unspe cifie d speci men chlamydia trachomatis, aptima NOT DETECT ED normal DNA testi ng perfo rmed by [employer] hugo Ampli ficat ion (TMA) These resul ts shoul d be inter prete d in light of all clini brad and labor atory findi ngs. This assay is highl y accur ate, but rare false posit flor and negat flor resul ts may occur . Posit flor resul ts in low preva lence popul ation s may requi re re-ev aluat ion. A negat flor resul t does not precl ude a possi ble infec tion due to a speci men inade quacy or sampl ing error . Test perfo rmed by [facility], [facility]/a [facility], [address], [place] [address] , Terry Ortega ra, DO, Labor atory Dire tor. Not Available [facility] ([facility]) [address] [facility] [address], [place], [address], 12/30/2019 14:34:08 12/26/19 20 12/26/2019 pregn rosy test, urine HCG positi ve Not Available [place] [address], [place], [address], 12/26/2019 11:46:04 08/16/19 21 08/16/2020 , dina muhammad md interpretati on Not Available [facility] [address], [place], [address], 12/26/2019 13:19:36 08/17/19 21 08/17/2020 marcelina GRACE trans vagin al md interpretati on Not Available [facility] [address], [place], [address], 12/31/2019 14:28:56 12/26/19 20 US, dina muhammad No observ ation record ed. [email or web address], [place], [address], 12/27/2019 13:12:44 12/31/19 20 US, dina muhammad vagwillam parry No observ ation record ed. [email or web address] [address], [place], [address], 01/01/2020 20:33:18 Result Notes None recorded. Procedures Surgical History Date Name Laterality Status Provider Name and Address Organization Details Recorded Time 0 Date of Last Pap Smear completed Maryana Nj [facility] 12/26/2019 17:22:21 3 delivery completed [facility] 12/26/2019 11:27:17 Imaging Results Imaging Date Name Status LastModified by Organization Details LastModified Time 12/26/2019 US, obstetric, transvaginal completed [email or web address] [address], [place], [address], 12/27/2019 13:12:44 12/31/2019 US, obstetric, transvaginal completed [email or web address] [address], [place], [address], 01/01/2020 20:33:18 Procedure Notes None recorded. Medical Equipment None Reported. Allergies No known drug allergies Medications Name Sig Start Date Stop Date Status Note LastModified by Organization Details LastModified Time OneTouch Verio test strips DIRECTED active Not Available Not Available No t Available Vitals Date Recorded Body height Body mass index (BMI) Body weight Systolic blood pressure Diastolic blood pressure Provider Name and Address Organization Details Last Updated DateTime 12/26/2019 154.94 cm 38.2 kg/m2 87066.66 g 136 mm[Hg] 74 mm[Hg] [facility] 0 11:44:30 Date Recorded Body height Body mass index (BMI) Body weight Systolic blood pressure Diastolic blood pressure Provider Name and Address Organization Details Last Updated DateTime 12/26/2019 154.94 cm 37.8 kg/m2 66558.47 g 123 mm[Hg] 81 mm[Hg] Maryana Nj [facility] 0 17:20:58 Date Recorded Body height Body mass index (BMI) Body weight Systolic blood pressure Diastolic blood pressure Provider Name and Address Organization Details Last Updated DateTime 12/31/2019 154.94 cm 38.2 kg/m2 44100.66 g 118 mm[Hg] 79 mm[Hg] Anum Lantigua [facility] 0 14:42:33 Social History Question Answer Notes LastModified by Organizat ion Details LastModified Time Tobacco Smoking Status Never Smoker Giselle Lamar golden [facility] 12/26/2019 11:26:11 What Is Your Level Of Alcohol Consumption? Occasional Wine Information not available 12/26/2019 Do You Or Have You Ever Used E-cigarettes Or Vape? Never Used Electronic Cigarettes [email or web address] Information not available 12/26/2019 What Was The Date Of Your Most Recent Tobacco Screening? 12/26/2019 [email or web address] Information not available 12/26/2019 Do You Or Have You Ever Used Smokeless Tobacco? Never Used Smokeless Tobacco [email or web address] Information not available 12/26/2019 How Much Tobacco Do You Smoke? No [email or web address] Information not available 12/26/2019 Sex: Unknown Functional Status Question Answer Note LastModified by Organization D etails LastModified Time What is your exercise level? Moderate Information not available 12/26/2019 Mental Status None recorded. Family History Relationship Description Onset Age of this Age Resolved Age Notes LastModified by Organization Details LastModified Time Mother Hypertensive disorder [email or web address] Not available 2019 11:25:58 Paternal Grandmother Family history of breast cancer [email or web address] Not available 2019 11:52:43 Medical History Condition Response History of abnormal pap Gynecological History Statement/Question Response Abnormal Pap Y Date of Last Pap Smear 12/26/2019 Current Control Method None 12 Date of LMP 10/19/2019 Obstetrics History GPAL:G 2 P 1 0 1 1 Type Value Full Term 1 Spontaneous 1 Living 1 Total 2 Past Encounters Encounter ID Performer Location Encounter Start Date Encounter Closed Date Diagnosis/Indication Diagnosis SNOMED-CT Code Diagnosis ICD10 Code Diagnosis Note [id number] [address]yik [place] [address] [address] 12/26/2019 11:21:00 01/03/2020 23:30:36 Gynecologic examination 77341262 Z01.419 test positive 516953463 Z32.01 Risk factors addressed: Tobacco Cessation, Safe Sexual Practices, environmen kaleb, work hazards, travel restrictio ns, seat belt use.Eat a health well balanced diet, avoid alcohol, tobacco, and street drugs. Engage in daily low impact exercise, avoid temperatur e extremes, and cat, rodent, and bird feces.Avoi d travel to areas where zika virus is a concern.Fi rst look offered to patient. First look accepted by patient and will be scheduled. Sequential Screen handout given and discussed with patient.Ch ildbirth classes recommende d.New OB sheet given. History of severe pre eclampsia. Baby aspirin daily. If previous , counseling .Pt verbalizes that she understand s the importance of above instructio ns.All questions were answered. Patient reminded to have annual well woman examinatio n and address [facility] . [address] [facility] [address] [address] 12/26/2019 11:21:38 12/26/2019 13:26:18 Missed miscarriage 38660202 O02.1 Z3A.00 [address] [facility] [address] [address] 12/26/2019 16:58:38 12/26/2019 17:56:04 Missed miscarriage [id number] O02.1 We discussed options including expectant management , medical induction of miscarriag e, or surgical evacuation of uterus. She prefers to watch and wait and wants to repeat U/S (although she was counseled that pole 8+4 weeks without heartbeat is diagnostic of abnormal ) . Check type and screen, will need Rhogam if Rh negative. Bleeding precaution s reviewed. She and her mother expressed understand ing. I spent 15 minutes face to face with patient and her mother with majority of time in counseling [id number] [facility] [address] [address] 12/31/2019 14:03:38 12/31/2019 16:40:08 Missed miscarriage [id number] O02.1 Z3A.08 [id number]onal [place] [address] [address] 12/31/2019 14:04:38 12/31/2019 16:45:09 Missed miscarriage [id number] O02.1 We discussed options including expectant management , medical induction of miscarriag e, or surgical evacuation of uterus. She prefers to proceed with suction D&C and signed consent after R/B/C/A discussed. Risks include but are not limited to bleeding; transfusio n; infection; uterine perforatio n; need for further surgery; risk of anesthesia . She expressed understand ing. Rh + so no Rhogam needed Health Concerns Section Related Observation LastModified by Organization Detai ls LastModified Time None Recorded Concern Status LastModified by Organization Details LastModified Time None Recorded Advance Directives Directive None Recorded Payers Encounter Date Sequence Insurance Name Policy Number Policy Collins Covered Member ID Collins Member ID Guarantor Name 12/26/2019 1 [place] [id number] Jh Littlejohn [id number] Aliyah Littlejohn 12/26/2019 1 [place] [id number] Jh Littlejohn [id number] Aliyah Littlejohn 12/26/2019 1 [place] [id number] Jh Littlejohn [id number] Aliyah Littlejohn 12/31/2019 1 [place] [id number] Jh Littlejohn [id number] Aliyah Littlejohn 12/31/2019 1 [place] [id number] Jh Littlejohn [id number] Aliyah Littlejohn Notes Date Note Type Note Provider Name and Address Organization Details Recorded Time 12/26/2019 text/html No bleeding, aircraft inspection 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 She was here for routine sneak peek ultrasound. S Donal franks [facility] 12/26/2019 17:53:04 12/26/2019 text/html Generic HPI TemplateReported bypatient.Notes:LMP 4-18 EDC 1-[address] [facility] 01/03/2020 09:27:53 12/31/2019 text/html No complaints. N o bleeding, cramping S Mansfield [facility], [facility] 12/31/2019 15:23:34 OBGyn Episode Ob Episode Information Episode Created Date Number of Fetuses Patient Bloodtype Patient rh Status Prepregnancy Weight lbs Domestic Partner Domestic Partner Phone Father Name Ambulatory Service Representative Status 12/26/19 20 1 CLOSED Fetus Data First Name Last Name Admitted to NICU Weight (g) Sex Living Outcome Pediatric Complications Fetus ID Race Codes Race Delivery Type , Spontane ous [id number] Ramon Calculation Initial Ramon Date Initial Exam Date Initial Exam Provider Initial Ultrasound Date Last Menstrual Period Date Ultra Sound Weeks Gestation 0 Eighteen To Twenty Week Ramon Update Ultra Sound Date Fundal Height At Umbil Quickening Date Ultra Sound Latest Weeks Gestation Final Ramon Confirmed By Final Ramon Confirmed Date Final Ramon Date Ultra Sound Latest Days Gestation 0 0 Menstrual History Last Menstrual Date Menses Monthly On Bcp Conception Prior Menses Frequency Hcg Plus Date Menarche Onset Age Delivery Information Delivery Date Delivery Type Labor Anesthesia Weeks Gestation Incision Type Labor Labor Length Hrs Delivered By Post Complications Tubal Sterilization Discharge Date Comments 0 0 MISCARRIA GE Discharge Information Feeding Method Contraceptive Method Maternal HG B and HCT Levels Ob Episode Information Episode Created Date Number of Fetuses Patient Bloodtype Patient rh Status Prepregnancy Weight lbs Domestic Partner Domestic Partner Phone Father Name Ambulatory Service Representative Status 12/26/19 20 1 CLOSED Fetus Data First Name Last Name Admitted to NICU Weight (g) Sex Living Outcome Pediatric Complications Fetus ID Race Codes Race Delivery Type 2522.87 [id number] Primary Ramon Calculation Initial Ramon Date Initial Exam Date Initial Exam Provider Initial Ultrasound Date Last Menstrual Period Date Ultra Sound Weeks Gestation 0 Eighteen To Twenty Week Ramon Update Ultra Sound Date Fundal Height At Umbil Quickening Date Ultra Sound Latest Weeks Gestation Final Ramon Confirmed By Final Ramon Confirmed Date Final Ramon Date Ultra Sound Latest Days Gestation 0 0 Menstrual History Last Menstrual Date Menses Monthly On Bcp Conception Prior Menses Frequency Hcg Plus Date Menarche Onset Age Delivery Information Delivery Date Delivery Type Labor Anesthesia Weeks Gestation Incision Type Labor Labor Length Hrs Delivered By Post Complications Tubal Sterilization Discharge Date Comments 3 severe preeclamp tamara and high BP Discharge Information Feeding Method Contraceptive Method Maternal HG B and HCT Levels
--- OUTSIDE RECORDS SUMMARY | 2024-08-25 12:53 | XMS_ITS | Encounter Summary ---
Author Organization [facility] Address [address] [place] [address] Phone Care Team Providers Care Claims Coordinator Name Role Phone Zachariah Noriega MD Primary Care Provider [phone] Fidelia Mansfield MD Unavailable [phone] Azael Shelby MD Unavailable [phone] Encounter Details Date Type Department Care Team (Late st Contact Info) Description 08/24/2024 6:40 PM MEDICAL TECHNOLOGIST CHIEF - 08/24/2024 7:16 PM MEDICAL TECHNOLOGIST CHIEF Emergency [facility] [address] [place] [address] Discharge Disposition: LWBS Social History Tobacco Use Types Packs/Day Years Used Date Smoking Tobacco: Never Smokeless Tobacco: Never Alcohol Use Standard Drinks/Week Comments Yes 0 (1 standard drink = 0.6 oz pur e alcohol) occasionally PHQ-2 Answer Date Recorded Total Score - Questions 1-9 0 07/03 Comments Unknown Sex and Gender Information Value Date Recorded Sex Assigned at Not on file Legal Sex Female 9:49 PM CDT Gender Identity Not on file Sexual Orientation Not on file Occupation Industry Job Start Date Job End Date [employer] Not on file Not on file Not on file documented as of this encounter ED Notes * Brittny Will, RN - 08/24/2024 7:05 PM CST While triaging pt, pt decided she did not want to wait and decided she would call her PCP on Monday. CAL TECHNOLOGIST CHIEF documented in this encounter Plan of Treatment Upcoming Encounters Date Type Department Care Team (Late st Contact Info) Description 08/28/2024 10:15 AM MEDICAL TECHNOLOGIST CHIEF Office Visit [facility] Medical [facility] - General Surgery - [place] [address] [facility] [address] [place] [address] Zachariah Noriega MD [address] [place] [address] Dominic Cabello MD [address] [address] 02/25/2025 10:30 AM CDT Office Visit [facility] - Primary Care - [place] [address] [place] [address] Zachariah Noriega MD [address] [place] [address] documented as of this encounter Visit Diagnoses Not on filedocumented in this encounter Additional Health Concerns Assessment Noted Time PHQ-9 Depression Total Score: 0 07/20/19 4:00 PM MEDICAL TECHNOLOGIST CHIEF documented as of this encounter Care Teams Claims Coordinator Relationship Specialty Start Date End Date Zachariah Noriega MD [address] [place] [address] PCP - General Internal Medicine 07/20/20 Fidelia Mansfield MD [address] [place] [address] Consulting Physician Obstetrics & Gynecology 07/20/20 Azael Shelby MD [address] [facility] [address] [facility] [address] [place] [address] Consulting Physician Obstetrics & Gynecology 08/13/24 documented as of this encounter
--- OUTSIDE RECORDS SUMMARY | 2024-08-25 12:53 | XMS_ITS | Clinical Summary ---
Author Organization [facility] Address [address] [place] [address] Phone Care Team Providers Care Emergency Room Rn Name Role Phone ABDULAZIZ SANCHEZ MD Primary Care Provider [phone] Reason for Visit and Chief Complaint NO SHOW Plan of Treatment No Plan of Treatment Recorded Assessments Includes: Assessments from this encounter No Assessments Recorded Medical Equipment - Implanted Devices Includes: Current Devices No Medical Equipment Recorded Medications Administered Includes: Administered Medications from this encounter No Administered Medications Recorded Results Includes: Results discussed during this encounter No Results Recorded For Specified Dates History of Present Illness Includes: History of Present Illness from this encounter No History of Present Illness Recorded Social History No Social History Recorded - Smoking Status Unknown Medical History Includes: Medical History addressed during this encounter No Medical History Recorded Family History Includes: Family History addressed during this encounter No Family History Recorded Review of Systems Includes: Review of Systems from this encounter No Review of Systems Recorded Mental Status Includes: Mental Status from this encounter No Mental Status Recorded Functional Status Includes: Functional Status from this encounter No Functional Status Recorded Physical Exam Includes: Physical Exam from this encounter No Physical Exam Recorded Allergies Includes: Active Allergies No Known Allergies Encounters Encounter Provider Location Date Check-In Time Check-Out Time Diagnosis NO SHOW DUGLAS SIERRA RN [facility] RESPIRATORY COORDINATOR 09/13/2018 9:47AM 11:59PM Insurance Includes: Active Insurance Policies Plan Name Member ID Group # Subscriber Relationship Effect liu Dates 1 - [facility] [id number] BALDEMAR SÁNCHEZ Child Clinical Notes Includes: Clinical Notes from this encounter No Clinical Notes Recorded
--- OUTSIDE RECORDS SUMMARY | 2024-08-25 12:53 | XMS_ITS | Clinical Summary ---
Author Organization [facility] Address [address] [place] [address] Phone Care Team Providers Care Supervisor [employer] Name Role Phone ABDULAZIZ SANCHEZ MD Primary Care Provider [phone] Reason for Visit and Chief Complaint PROBLEM VISIT Plan of Treatment No Plan of Treatment [...] Allergies Includes: Active Allergies No Known Allergies Insurance Includes: Active Insurance Policies Plan Name Member ID Group # Subscriber Relationship Effect liu Dates 1 - [facility] [id number] BALDEMAR SÁNCHEZ Child Clinical Notes Includes: Clinical Notes from this encounter No Clinical Notes Recorded
--- OUTSIDE RECORDS SUMMARY | 2024-08-25 12:53 | XMS_ITS | Clinical Summary ---
Author Organization [facility] Address [address] [place] [phone] Phone Care Team Providers Care Community Mental Health Worker Name Role Phone ABDULAZIZ SANCHEZ MD Primary Care Provider [phone] Reason for Visit and Chief Complaint NO [...] Subscriber Relationship Effect liu Dates 1 - [facility] [id number] BALDEMAR SÁNCHEZ Child Clinical Notes Includes: Clinical Notes from this encounter No Clinical Notes Recorded
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
--- OUTSIDE RECORDS SUMMARY | 2024-08-25 12:53 | XMS_ITS | Patient Health Summary ---
Author Organization [facility] [employer] Address [address] [address] Care Team Providers Care Insulation And Flooring Assembler Name Role Phone Unavailable Primary Care Provider Unavailabl e Note from [facility],non-owned Affiliates and Associated Physician Practices is amultiple site organization consisting of ambulatory clinics and hospital sitesin [place], [place], [place] and [place]. This disclosure is being madepursuant to the Care Everywhere program and may not contain all information available regarding this patient. Last updated 18.[facility] [employer] Allergies No known active allergies Medications * Be aware that medications may not be up to date on this document. Alwaysverify current medications with the patient. * Vit-DSS-Fe Fum-FA ( vitamin with iron) tablet Take 1 (one) tablet by mouth once daily * ferrous sulfate 325 (65 FE) MG tablet Take 1 (one) tablet by mouth once daily * pyridoxine (Vitamin B-6) 25 MG tablet Take 2 (two) tablets by mouth once daily * vitamin D3 (Cholecalciferol) 25 MCG (1000 UNITS) tablet Take 1 (one) tablet by mouth once daily * aspirin (Aspirin) 81 MG chew tablet Take 1 (one) tablet by mouth once daily * insulin detemir (Levemir) pen(Started 03/01/2023) Inject 16 (sixteen) Units to 50 (fifty) Units subcutaneously at bedtime Start with 8 units in the morning, 8 units in the evening. Increase as directed. 3 refills by 02/29/2024 * Glucagon (Baqsimi One Pack) 3 MG/DOSE POWD(Started 03/01/2023) [place] 3 mg into the nose as needed FOr emergency use if unable to treat low blood sugar with food or drink * pantoprazole EC (Protonix) 20 MG tablet(Started 03/22/2023) Take 1 (one) tablet by mouth once daily Reasons: Heartburn 1 refill by 03/21/2024 * Insulin Pen Needle 32G X 4 MM MISC(Started 03/22/2023) Use 1 Each 4 times daily 3 refills by 03/21/2024 * insulin lispro (HumaLOG KwikPen) 100 UNIT/ML pen(Started 03/22/2023) Inject 4 (four) Units to 6 (six) Units subcutaneously 2 times daily Inject 4 units at lunchtime and6 units at dinnertime. Increase as directed for increased insulin needs during , up to 50 units per day. Prime pen with 2 units prior to selecting dose. Inject dose 10 minutes prior to eating meal. 3 refills by 03/21/2024 Active Problems Problem Noted Date Diagnosed Date Hx of preeclampsia, prior , currently p regnant 04/04/2023 Social History Tobacco Use Types Packs/Day Years Used Date Smoking Tobacco: Never Smokeless Tobacco: Never Tobacco Cessation:Counseling Given: Not Answered Alcohol Use Standard Drinks/Week Comments Never 0 (1 standard drink = 0.6 oz pur e alcohol) Sex and Gender Information Value Date Recorded Sex Assigned at Not on file Gender Identity Not on file Sexual Orientation Not on file Last Filed Vital Signs Vital Sign Reading Time Taken Comments Blood Pressure 122/76 03/29/2023 1:19 PM CDT Pulse 78 03/29/2023 1:19 PM CDT Temperature - - Respiratory Rate - - Oxygen Saturation - - Inhaled Oxygen Concentration - - Weight 106.6 kg (235 lb) 03/29/2023 1:19 PM CDT Height 154.9 cm (5' 1 ) 03/29/2023 1:19 PM CDT Body Mass Index 44.4 03/29/2023 1:19 PM CDT Procedures * BIOPHYSICAL PROFILE W NST(Performed 03/22/2023) Performed for Insulin controlled gestational diabetes mellitus (GDM) in third trimester ([facility]), BMI 40.0-44.9, adult ([facility]), 33 weeks gestation of ([facility]) * SONOGRAM - COMPLETE(Performed 02/22/2023) Performed for Gestational diabetes mellitus (GDM), antepartum, gestational diabetes method of control unspecified (HCC), History of delivery, History of dilation and curettage Results * BIOPHYSICAL PROFILE W NST (03/22/2023 2:41 PM CDT) Anatomical Region Laterality Modality Other 03/22/2023 2:4 1 PM CDT Narrative 03/22/2023 4:[address] [facility] Maternal and Care Erin PHONE: FAX: Pat. Name: ALIYAH WILL Wnada Rojas. No: [id number] Study Date: 03/22/2023 2:41pm , Age: 08 1995, 28 Pregnancies: 4, Para 1112 Height: 61 in Weight: 224 lb LMP: 07/29/2022 GA by LMP: 33w5d GA by Base: 33w5d NORMA: 05/05/2023 GA by US: 35w3d NORMA: 04/23/2023 GA Selected: 33w5d (LMP) NORMA: 05/05/2023 Referring MD: Azael Shelby MD Airline Counter Agent: Vero Apodaca RDMS CPT4: 12120,88362 BMI: 42.32 Hist/Ind: G1: C/S 36 wk 2608 gm severe preeclampsia G2: SAB 10 wk D&C G3: C/S 37 wk 3572 gm GDM-A2 G4: GDM-A2 on insulin, Class III obesity, Anemia, Low-risk cf-DNA MEASUREMENTS & AGE GROWTH EVALUATION Measurement GA Range Srce %for GA Ratios ----- ---- ------- BPD 8.7 cm 34w6d (33p4k-66d2w) Hadl BPD 79% FL/BPD 0.73 (0.71 - 0.87) HC 33.5 cm 38w2d (70v6x-57y2g) Hadl HC 98% FL/AC 0.20 (0.20 - 0.24* AC 31.9 cm 35w6d (02e7a-50h7j) Hadl AC 95% HC/AC 1.05 (0.95 - 1.13) FL 6.3 cm 32w4d (62m3p-78b0d) Hadl FL 14% CI 0.70 (0.70 - 0.86) HL 5.7 cm 33w0d (15a8b-92x0y) Vincent HL 39% GA for sonogram 35w3d (31b7z-22l9m) Weight Estimate: based on (BPD,HC,AC,FL) Avg Weight: 2601 gm (2221-2980gm) Had : 5lbs, 11oz Normal: 2313 gm (1735-2891gm) Had Wt% 83% for 33w5d Heart Rate: 157 bpm Amniotic Fluid Index: 14.8cm (08.2-24.7) Q1: 6.4cm Q2: 1.1cm Q3: 2.2cm Q4: 5.1cm Biophysical Profile: 02/09 Breathin Tone: 2 NST: 2 Movement: 2 AFV: 2 EVAL, PLACENTA Presentation: cephalic Placenta: anterior Heart Rate: 157 bpm Amniotic Fluid Volume: normal Anatomy!Normal!Abnormal!Suboptimal!Prev. Seen!Comments Cranium ! ! ! ! x ! Mdl (CSP/Thal! ! ! ! x ! Ventricles ! ! ! ! x ! Choroid Plexu! ! ! ! x ! Cerebellum ! ! ! ! x ! Cisterna M. ! ! ! ! x ! Orbits ! ! ! ! x ! Profile ! x ! ! ! ! Nasal Bone ! x ! ! ! ! Lip ! ! ! x ! ! Spine ! ! ! x ! !suboptimal transverse, sagittal previously seen 4 Chamber Hea! ! ! ! x ! LVOT ! ! ! ! x ! RVOT ! ! ! ! x ! 3 Vessel View! x ! ! ! ! 3 Vessel Trac! ! ! x ! ! Cross-over ! x ! ! ! ! Ductal Arch ! x ! ! ! ! Aortic Arch ! ! ! x ! ! Caval View ! ! ! ! x ! Situs ! ! ! ! x ! Diaphragm ! ! ! ! x ! Stomach ! x ! ! ! x ! Bowel ! ! ! ! x ! Kidneys ! ! ! ! x ! Bladder ! x ! ! ! x ! 3 Vessel Cord! ! ! ! x ! Cord In! ! ! ! x ! Upper Extremi! x ! ! ! !unremarkable left, right previously seen Hands ! x ! ! ! !unremarkable left, right previously seen Lower Extremi! ! ! ! x ! Feet ! x ! ! ! !unremarkable right, left previously seen External Peggy! ! ! ! x ! Placental Cor! ! ! ! x ! CLINICAL SUMMARY IMPRESSION: Single, live, intrauterine at 33w5d in cephalic presentation Amniotic fluid volume: within normal limits Biophysical profile: Normal (02/09) with reactive NST, moderate BTBV & normal baseline, 0 for breathing size is overall normal range, with AC >90th% RECOMMEND: To L&D now to assess BP 140/70 mmHg, 1+ proteinuria, RUQ & epigastric pain, headache & N/V Continue twice weekly testing (being performed at [facility]) Repeat growth assessment in 4 weeks if undelivered See MACHINE COREMAKER and Diabetic educators notes Thank you for allowing us the opportunity to care for your patient Ba Anand MD <Electronic Signature> 03/22/2023 04:08pm Azael Cobian MD [facility] ORDERABLES * SONOGRAM - COMPLETE (02/22/2023 1:32 PM CDT) Anatomical Region Laterality Modality Other 02/22/2023 1:32 PM CDT Narrative 02/22/2023 3:[address] [facility] Maternal and Care Erin PHONE: FAX: Pat. Name: ALIYAH WILL Pat. No: [id number] Study Date: 02/22/2023 1:32pm , Age: 08 1995, 28 Pregnancies: 4, Para 1112 Height: 61 in Weight: 224 lb LMP: 07/29/2022 GA by LMP: 29w5d GA by US: 30w2d NORMA: 05/01/2023 GA Selected: 29w5d (LMP) NORMA: 05/05/2023 Referring MD: Azael Shelby MD Airline Counter Agent: Vero Apodaca RDMS CPT4: 29628 BMI: 42.32 Hist/Ind: G1: C/S 36 wk 2608 gm severe preeclampsia G2: SAB 10 wk D&C G3: C/S 37 wk 3572 gm GDM-A2 G4: GDM-A1, Class III obesity, Anemia, Low-risk cf-DNA MEASUREMENTS & AGE GROWTH EVALUATION Measurement GA Range Srce %for GA Ratios ----- ---- ------- BPD 7.3 cm 29w3d (64k0m-56z7s) Hadl BPD 29% FL/BPD 0.75 (0.71 - 0.87) HC 28.7 cm 31w4d (57u9x-57l5d) Hadl HC 70% FL/AC 0.20 (0.20 - 0.24* AC 28.1 cm 32w1d (32k1v-06j5k) Hadl AC 96% HC/AC 1.02 (0.98 - 1.17) FL 5.5 cm 29w0d (60u9x-56q2m) Hadl FL 19% CI 0.70 (0.70 - 0.86* HL 5.1 cm 29w6d (84l0j-36f3d) Vincent HL 53% Cere 3.4 cm 28w6d (26x9h-03q1y) Michele Cere32% GA for sonogram 30w2d (77v6i-77k5y) Weight Estimate: based on (HC,AC,FL) Hadlock Weight: 1668 gm (1424-1911gm) Had : 3lbs, 10oz Normal: 1505 gm (1129-1882gm) Had Wt% 80% for 29w5d Heart Rate: 153 bpm Amniotic Fluid Index: 17.4cm (09.1-23.3) Q1: 3.9cm Q2: 3.6cm Q3: 4.7cm Q4: 5.2cm EVAL, PLACENTA Presentation: breech Placenta: anterior Heart Rate: 153 bpm Amniotic Fluid Volume: normal Anatomy!Normal!Abnormal!Suboptimal!Prev. Seen!Comments Cranium ! x ! ! ! ! Mdl (CSP/Thal! x ! ! ! ! Ventricles ! x ! ! ! ! Choroid Plexu! x ! ! ! ! Cerebellum ! x ! ! ! ! Cisterna M. ! x ! ! ! ! Orbits ! x ! ! ! ! Profile ! ! ! x ! ! Nasal Bone ! ! ! x ! ! Lip ! ! ! x ! ! Spine ! ! ! x ! !unremarkable sagittal spine, suboptimal transverse spine 4 Chamber Hea! x ! ! ! ! LVOT ! x ! ! ! ! RVOT ! x ! ! ! ! 3 Vessel View! ! ! x ! ! 3 Vessel Trac! ! ! x ! ! Cross-over ! ! ! x ! ! Ductal Arch ! ! ! x ! ! Aortic Arch ! ! ! x ! ! Caval View ! x ! ! ! ! Situs ! x ! ! ! ! Diaphragm ! x ! ! ! ! Stomach ! x ! ! ! ! Bowel ! x ! ! ! ! Kidneys ! x ! ! ! ! Bladder ! x ! ! ! ! 3 Vessel Cord! x ! ! ! ! Cord In! x ! ! ! ! Upper Extremi! ! ! x ! !unremarkable right, suboptimal left Hands ! ! ! x ! !unremarkable right, suboptimal left Lower Extremi! x ! ! ! ! Feet ! ! ! x ! !unremarkable left, suboptimal right External Peggy! x ! ! ! !Male Placental Cor! x ! ! ! ! CLINICAL SUMMARY ASSESSMENT * Barrow IUP at 29 weeks of gestation by stated EDC from LMP * Referred to [facility] for consult & obstetrical U/S secondary to: - Diabetes mellitus, gestational A1 - Obesity Class III BMI >=40 - Prior section (C/S) x2 * Today's ultrasound (U/S) findings: - Living barrow intrauterine fetus - growth appears normal - Amniotic fluid volume appears normal - Placenta is anterior & clear of the lower uterine segment - Comprehensive anatomic survey appears normal, but is incomplete PAST MEDICAL & OBSTETRICAL HISTORY * Medications: vitamins & LD-ASA & Vit D & Vit B6 & see PMH below * Past Medical History (PMH): - No CHTN, no DM, no thyroidopathy, no asthma, no VTE - Diabetes mellitus, gestational A1 - The 50-gram 1-hour OGTT = 157 mg/dL - The 100-gram 3-hour OGTT = 133-608-279-116 mg/dL - Hemoglobin A1c was 5.5% Aug-2022 - Hemoglobin A1c was 5.5% Oct-2022 - Glycemic control is generally reasonably good on diet - Obesity Class III BMI >=40 - Anemia, on iron * Social History: denies ethanol, tobacco, drugs * Past Obstetrical History: G1: C/S 36 wk 2608 gm severe preeclampsia G2: SAB 10 wk D&C G3: C/S 37 wk 3572 gm GDM-A2 metformin G4: Current : GDM-A1, Low-risk cf-DNA COUNSELING & RECOMMENDATIONS * Diabetes mellitus & - We discussed the maternal, , & pediatric importance of euglycemia - Compliance (dietary, CBG measurements, medication, etc) was emphasized - We discussed the increased maternal- risks of suboptimal glycemic control: - Intrauterine , increased risk for delivery - macrosomia, shoulder dystocia, brachial plexopathy - respiratory distress syndrome, hypoglycemia & hyperbilirubinemia - She is advised to measure & record capillary blood glucose (CBG) values each day - We advise CBGs be taken fasting & post-prandial (pC) - The pC CBG is regularly checked at either 1 or 2 hours after starting the meal - The goal is to maintain CBG values as close to normal as possible - ACOG goals for CBG: fasting < 95, aC < 95, 1-hr pC < 140 or 2-hr pC < 120 mg/dL - [facility] MFM goals for CBG: fasting 60-90, aC 60-105, 1-hr pC < 130 or 2-hr pC < 120 mg/dL - There should be 1 primary provider to manage glycemic control - As requested MFM will take responsibility & she should follow-up in 1 week with CBG log - Please also refer to the separate Diabetic/Package Maker consultation report of today - Oral hypoglycemic agents for DM in - Insulin is considered the gold standard for medical treatment of DM in - There has been ongoing debate regarding insulin versus oral hypoglycemic agents - Options for oral hypoglycemic agents include metformin or glyburide - Concerns regarding oral agents, as compared with insulin, include: - Need to switch to insulin secondary to insufficient glycemic control or side effects - Uncertain long-term safety for the (e.g. metabolic effects) - We & other MFM practitioners offer treatment with an oral agent per patient preference - My general recommendation is insulin, but will prescribe oral agent if patient prefers - The risks & benefits of each medication option were discussed, in case of future need - surveillance (e.g. NST, BPP) recommendations for DM per the 2021 ACOG CO-828: - GDM controlled on meds & no comorbidities: 1-2X weekly starting 32w0d - GDM poorly controlled: 2X weekly starting 32w0d - Delivery timing recommendations for DM per the 2021 ACOG CO-831: - Gestational diabetes well controlled on diet @ 39w0d - 40w6d - Gestational diabetes well controlled on medications @ 39w0d - 39w6d - Gestational diabetes poorly controlled: individualized - Polyhydramnios mild, idiopathic, uncomplicated @ 39w0d - 40w6d - it would be advised that she: - Up to one third of women with GDM have T2DM or other abnormality - It is estimated 15-70% of women with GDM will develop T2DM over time - Screening for DM @ 4-12 weeks is advised for all women who had GDM - Testing is via a fasting plasma glucose & 75-gram 2-hour OGTT - The ADA & ACOG recommend repeat testing every 1-3 years if normal - Diet, exercise & weight control may prevent later development of Type II DM - Risk of GDM in future pregnancies after previous GDM - The incidence of GDM in next after GDM approaches 50% - In future pregnancies, screen for GDM early & if negative, repeat @ 24-28 weeks - References in this section - The 2018 SMFM Statement Pharmacological Treatment of Gestational Diabetes - The 2018 ACOG Practice Bulletin #190 Gestational Diabetes Mellitus - The 2018 ACOG Practice Bulletin #201 Pregestational Diabetes Mellitus - The 2020 ACOG Committee Opinion #828 Indications... Surveillance - The 2020 ACOG Committee Opinion #831 Medically Indicated...Deliveries * Maternal obesity in : - Most complications are increased with obesity (Creang2021 NEJM) - Increased / risks include: - Miscarriage (OR = 1.31) & stillbirth (OR = 1.54) - Congenital heart defects (OR = 1.32) & neural tube defects (OR = 1.69) - (OR = 1.17) & post-term (OR = 1.41) - macrosomia (OR = 2.28) & LGA (OR = 2.36) - Gestational diabetes (OR = 3.34) & preeclampsia (OR = 3.57) - Obese mothers are less likely to breast-feed - Increased maternal risks include: - Anemia, hypertension, gestational diabetes, maternal mortality - Antepartum depression (OR = 1.33) & depression (OR = 1.39) - Anesthetic complications including difficult intubation & epidural failure - Failure of vaginal after delivery - delivery (OR = 1.98), infection (3.34) - hemorrhage (OR = 1.38), venous thromboembolism (VTE) - The 2020 ACOG CO-828 recommends testing for obesity: - Prepregnancy BMI 35.0-39.9 kg/m2 1X-weekly starting @ 37w0d - Prepregnancy BMI >= 40 kg/m2 1X-weekly starting @ 34w0d - Current [facility] guidelines BMI >= 35.0 kg/m2 1X-weekly 8-point BPP (NST PRN) starting @ 36w0d - Weight gain recommendations during barrow from the IOM & ACOG - BMI >= 30.0 kg/m2: Total Weight 11-20 lb, 2nd & 3rd trimesters 0.5 lb/week - References cited in this section - The 2008 [place] of Medicine Weight gain during : reexamining the guidelines - The 2013 ACOG Committee Opinion #548 Weight Gain During * Considering her medical history & risk factors above, in my best medical opinion, I would further advise: - Follow-up U/S for growth & AFV every 4 weeks - testing (e.g. NST+ROHAN or BPP) to be determined - Peripartum VTE prophylaxis (at minimum sequential compression devices until ambulatory) - Delivery planning: assuming no new problems, deliver by repeat C/S in the 39th week COMMENTS * Thank you very much for requesting [facility] participation in her obstetrical care * Findings were explained & questions were addressed & precautions were given to patient * U/S does not detect all structural & functional [id number]-[id number] abnormalities * Telemedicine services were performed for this U/S examination & MFM consultation - Patient's identity was confirmed at the [facility] office - Appropriateness of the telehealth consult was confirmed - Informed consent for telemedicine services was obtained & scanned into EMR - Patient assisted assessment by providing capillary blood glucose data - Modality was secure interactive audio-video session using UXCam/Good Thing[employer] - Patient site location [facility] & nurse presenter was Justice Holt - Distant site provider was Ba Anand MD & location was home office - Consult = 45 minutes, with >50% involving [id number] counseling & coordination of care Ba Anand MD <Electronic Signature> 02/22/2023 03:53pm Azael Cobian MD [facility] ORDERABLES
--- OUTSIDE RECORDS SUMMARY | 2024-08-25 12:53 | XMS_ITS ---
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 ; [facility] NO PRIMARY CARE PROVIDER 09/07/2017 Last Documented On 8 1:38PM ; [facility] Not using contraception 09/07/2017 Last Documented On 8 1:38PM ; [facility] Last pap smear date 06/29/2016 8 Last Documented On 8 1:38PM ; [facility] History of Pap smear done 06/29/201605/2017 Last Documented On 7 2:28PM ; [facility] Eclampsia during 06/29/2016 Last Documented On 6 2:07PM ; [facility] History of anxiety disorder NOS little b i 05/17/2013 Last Documented On 3 11:14AM ; [facility] History of depression 05/17/2013 Last Documented On 3 11:14AM ; [facility] 1 05/17/2013 Last Documented On 3 11:14AM ; [facility] Para 1 05/17/2013 Last Documented On 3 11:14AM ; [facility] History of asthma 01/14/2013 Last Documented On 3 4:09PM ; [facility] History of heart disease MGM PGM 013 Last Documented On 3 4:09PM ; [facility] History of metabolic disorders FOB FAMIL Y HAS DIABETES 01/14/2013 Last Documented On 3 4:09PM ; [facility] History of psychiatric disorders PT HAS BORDERLINE PERS DISORDER 01/14/2013 Last Documented On 3 4:09PM ; [facility] No recent change in medical history PT WAS TAKING DEPOKOTE AND TRAZADONE UNTIL EARLY JUNE 2012 FOR PERSONALITY ISSUES. ADMITS FLUCONAZOLE X 1 DOSE 07/17/12 01/14/2013 Last Documented On 3 4:09PM ; [facility] Family History Includes: Family History in patient's chart Description Last Updated Paternal grandmother's history of malign ant female breast neoplasm PGM 06/29/2016 Last Documented On 6 2:07PM ; [facility] Family history of malignant female breas t neoplasm PGM 12/18/2013 Last Documented On 4 3:40PM ; [facility] Family history unchanged 12/18/2013 Last Documented On 4 3:40PM ; [facility] Family history of diabetes mellitus MOM HAD IT DURING 07/31/2012 Last Documented On 3 5:11PM ; [facility] Family history of hypercholesterolemia G [employer] PARENTS 07/31/2012 Last Documented On 3 5:11PM ; [facility] Family history of hypertension MOTHER Last Documented On 3 5:11PM ; [facility] Review of Systems Review of Systems not supported for this document type No Review of Systems Recorded Mental Status No Mental Status Recorded Functional Status No Functional Status Recorded Physical Exam Physical Exam not supported for this document type No Physical Exam Recorded Allergies Includes: Active, inactive, and resolved Allergies No Known Allergies Insurance Includes: Active Insurance Policies Plan Name Member ID Group # Subscriber Relationship Effect liu Dates 1 - [facility] [id number] BALDEMAR SÁNCHEZ Child Clinical Notes Includes: Signed Clinical Notes starting from 07/22/2022 No Clinical Notes Recorded
--- OUTSIDE RECORDS SUMMARY | 2024-08-25 12:53 | XMS_ITS | Clinical Summary ---
Author Organization [facility] [employer] Address [address] [place] [address] Care Team Providers Care Complex Human Resources Manager Name Role Phone Unavailable Primary Care Provider Unavailabl e Source Comments [facility] [employer]non-owned Affiliates and Associated Physician Practices is amultiple site organization consisting of ambulatory clinics and hospital sitesin [place], [place], [place]. This disclosure is being madepursuant to the Care Everywhere program and may not contain all information available regarding this patient. Last updated 18.[employer] Allergies No known active allergies Medications * Be aware that medications may not be up to date on this document. Alwaysverify current medications with the patient. Medication Sig Dispensed Refills Start Date End Date Status Vit-DSS-Fe Fum-FA ( vitamin with iron) tablet Take 1 (one) tablet by mouth once daily Active ferrous sulfate 325 (65 FE) MG tablet Take 1 (one) tablet by mouth once daily Active pyridoxine (Vitamin B-6) 25 MG tablet Take 2 (two) tablets by mouth once daily Active vitamin D3 (Cholecalciferol) 25 MCG (1000 UNITS) tablet Take 1 (one) tablet by mouth once daily Active aspirin (Aspirin) 81 MG chew tablet Take 1 (one) tablet by mouth once daily Active insulin detemir (Levemir) penIndications:Ins ulin controlled gestational diabetes mellitus (GDM) in third trimester (HCC) Inject 16 (sixteen) Units to 50 (fifty) Units subcutaneously at bedtime Start with 8 units in the morning, 8 units in the evening. Increase as directed. 15 mL 3 03/01/2023 Active Additional Information Patient taking differently:16-50 Units Subcutaneous AT BEDTIME,Pt units in the morning, 18 units in the evening. Increase as directed., Informant: Patient, Reported on 03/29/2023 Glucagon (Baqsimi One Pack) 3 MG/DOSE POWDIndications:In sulin controlled gestational diabetes mellitus (GDM) in third trimester (HCC) Powell 3 mg into the nose as needed FOr emergency use if unable to treat low blood sugar with food or drink 1 Each 03/01/2023 Active pantoprazole EC (Protonix) 20 MG tabletIndications: Heartburn Take 1 (one) tablet by mouth once daily Reasons: Heartburn 30 tablet 1 03/22/2023 Active Insulin Pen Needle 32G X 4 MM MISCIndications:In sulin controlled gestational diabetes mellitus (GDM) in third trimester (HCC) Use 1 Each 4 times daily 100 Each 3 03/22/2023 Active insulin lispro (HumaLOG KwikPen) 100 UNIT/ML pen Inject 4 (four) Units to 6 (six) Units subcutaneously 2 times daily Inject 4 units at lunchtime and 6 units at dinnertime. Increase as directed for increased insulin needs during , up to 50 units per day. Prime pen with 2 units prior to selecting dose. Inject dose 10 minutes prior to eating meal. 15 mL 3 03/22/2023 Active Active Problems Problem Noted Date Diagnosed Date Hx of preeclampsia, prior , currently p regnant 04/04/2023 Overview (04/04/2023): 24 hour urine: 03/24, also had UTI at time this was collected as urine culture was positive on 03/22, 168mg of protein, 1400cc CBC: H/H: 9.6/30.9, platelets: 292 CMP: AST/ALT: 32/20, creatinine: 0.60, uric acid: 5.6, BUN: 11 Social History Tobacco Use Types Packs/Day Years [...] Mass Index 44.4 03/29/2023 1:19 PM CDT Plan of Treatment Health Maintenance Due Date Last Done Comments PAP SMEAR 1995 HIV SCREENING 2010 HEPATITIS C SCREENING 01/26/2013 DTAP/TDAP/TD VACCINES (1 - Tdap) 2014 HEPATITIS B VACCINE (1 of 3 - 19+ 3-dose series) 2014 COVID-19 VACCINE (2023-2 5 season) 2024 05/21/2021, 04/30/2021 INFLUENZA VACCINE (#1) 2024 2, 07/20/2020, 06/30/2015 DEPRESSION SCREENING 07/03/2024 ZOSTER VACCINE (1 of 2) 2045 HIB VACCINE Aged Out No longer eligi ble based on patient's age to complete this topic HPV VACCINE Aged Out No longer eligi ble based on patient's age to complete this topic MENINGOCOCCAL (Group B) VACCINE Aged Out No longer eligible b ased on patient's age to complete this topic MENINGOCOCCAL VACCINE Aged Out No pacheco jorge alberto eligible based on patient's age to complete this topic PNEUMOCOCCAL VACCINE Aged Out No long er eligible based on patient's age to complete this topic
--- OUTSIDE RECORDS SUMMARY | 2024-08-25 12:53 | XMS_ITS | Encounter Summary ---
Author Organization [facility] [employer] [facility] Care Team Providers Care Hand Bander Name Role Phone Zachariah Noriega MD Primary Care Provider [phone] Fidelia Mansfield MD Unavailable Azael Shelby MD Unavailable [phone] Encounter Details Date Type Department Care Team (Latest Contact Info) Description 08/24/2024 Travel Social History Tobacco Use Types Packs/Day Years [...] on file documented as of this encounter Plan of Treatment Upcoming Encounters Date Type Department Care Team (Late st Contact Info) Description 08/28/2024 10:15 AM PEARL MAKER Office Visit [facility] - General Surgery - [place] [address] [phone] Zachariah Noriega MD [address] [place] [address] Dominic Cabello MD [address] [place] [address] 02/25/2025 10:30 AM CDT Office Visit [facility] - Primary Care - [place] [address] [place] [phone] Zachariah Noriega MD [address] [place] [address] documented as of this encounter Visit Diagnoses Not on filedocumented in this encounter Additional Health Concerns Assessment Noted Time PHQ-9 Depression Total Score: 0 07/20/19 21 4:00 PM PEARL MAKER documented as of this encounter Care Teams Hand Bander Relationship Specialty Start Date End Date Zachariah Noirega MD [address] [place] [address] PCP - General Internal Medicine 07/20/20 Fidelia Mansfield MD [address] [place] [address] Consulting Physician Obstetrics & Gynecology 07/20/20 Azael Shelby MD [address] [facility] [address] [facility] [address] [place] [address] Consulting Physician Obstetrics & Gynecology 08/13/24 documented as of this encounter
--- OUTSIDE RECORDS SUMMARY | 2024-08-25 12:53 | XMS_ITS | Referral Summary ---
Author Organization [facility] Address [address] [place] [id number] Care Team Providers Care Clinical Nutritionist Name Role Phone Zachariah Noriega MD Primary [...] Preservative Free, Intramuscular 07/20/2020 Influenza, Unspecified 06/30/2015 Social History Tobacco Use Types Packs/Day Years [...] on file Legal Sex Female 1:23 PM FLARER Gender Identity Not on file Sexual Orientation Not on file Last Filed Vital Signs Vital Sign Reading Time Taken Comments Blood Pressure 130/78 05/06/2024 9:06 AM FLARER Pulse 98 05/06/2024 9:06 AM FLARER Temperature 36.9 C (98.4 F) 05/06/2024 9:06 AM FLARER Respiratory Rate 20 05/06/2024 9:06 AM FLARER Oxygen Saturation 98% 05/06/2024 9:06 AM FLARER Inhaled Oxygen Concentration - - Weight 105.2 kg (232 lb) 05/06/2024 9:06 AM FLARER Height 153.7 cm (5' 0.5 ) 05/06/2024 9:06 AM FLARER Body Mass Index 44.56 05/06/2024 9:06 AM FLARER Plan of Treatment Not on file Insurance [employer] [facility] Care Teams Clinical Nutritionist Relationship Specialty Start Date End Date Zachariah Noriega MD [address] [place] [address] PCP - General Internal Medicine 03/17/23
--- OUTSIDE RECORDS SUMMARY | 2024-08-25 12:53 | XMS_ITS | Clinical Summary ---
Author Organization [facility] Address [address] [place] [phone] Phone Care Team Providers Care Aviation Support Equipment Repairer Name Role Phone ABDULAZIZ SANCHEZ MD Primary Care Provider [phone] Reason for Visit and Chief Complaint NO [...] Subscriber Relationship Effect liu Dates 1 - [facility] [id number] BALDEMAR SÁNCHEZ Child Clinical Notes Includes: Clinical Notes from this encounter No Clinical Notes Recorded
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
--- OUTSIDE RECORDS SUMMARY | 2024-08-25 12:53 | XMS_ITS | Clinical Summary ---
Author Organization [facility] Address [address] [place] [phone] Phone Care Team Providers Care Screw Driver Operator Name Role Phone ABDULAZIZ SANCHEZ MD Primary Care Provider [phone] Reason for Visit and Chief Complaint NO [...] Subscriber Relationship Effect liu Dates 1 - [facility] [id number] BALDEMAR SÁNCHEZ Child Clinical Notes Includes: Clinical Notes from this encounter No Clinical Notes Recorded
--- OUTSIDE RECORDS SUMMARY | 2024-08-25 12:53 | XMS_ITS | Clinical Summary ---
Author Organization [facility] [place] Address [address] [place] [phone] Care Team Providers Care Snack Bar Cashier Name Role Phone Unavailable Primary Care Provider Unavailabl e Encounters Date Type Department Care Team Description 08/20/2024 External Device Data [facility] ABSTRACTION Provider, Abstract 07/25/2024 External Device Data [facility] ABSTRACTION Provider, Abstract 07/24/2024 External Device Data [facility] [place]STRACTION Provider, Abstract 07/23/2024 External Device Data [facility] [place]STRACTION Provider, Abstract from Last 3 Months Immunizations Immunization Administration Dates Next Due INFLUENZA VACCINE QUADRIVALENT 3 YR UP PF IM 08/2021 INFLUENZA VACCINE TRIVALENT SPLIT VIRUS, (6 MOS UP), 0.5ML (PF), IM 04/02/2024 Social History Tobacco Use Types Packs/Day Years Used Date Smoking Tobacco: Never Assessed Comments Unknown Sex and Gender Information Value Date Recorded Sex Assigned at Not on file Legal Sex Female 10:58 AM CDT Gender Identity Not on file Sexual Orientation Not on file Last Filed Vital Signs Vital Sign Reading Time Taken Comments Blood Pressure 114/60 10/31/2022 10:34 AM CDT Pulse - - Temperature - - Respiratory Rate - - Oxygen Saturation - - Inhaled Oxygen Concentration - - Weight - - Height - - Body Mass Index - - Plan of Treatment Health Maintenance Due Date Last Done Comments HEPATITIS B VACCINES (1 of 3 - 19+ 3-dose series) 2014 CERVICAL CANCER SCREENING 02/01/2016 DTAP/TDAP/TD VACCINES (3 - Td or Tdap) 03/14/2033 03/14/2023, 09/08/2021 INFLUENZA VACCINE Completed 04/02/2024, , 04/04/2022, Additional history exists HPV VACCINES Aged Out No longer eligi ble based on patient's age to complete this topic Insurance ALLEGIANCE OPEN ACCESS ALLEGIANCE OPEN ACCESS
--- OUTSIDE RECORDS SUMMARY | 2024-08-25 12:53 | XMS_ITS | Referral Summary ---
Author Organization [facility] Address [address] [place] [address] Care Team Providers Care Mold Car Pusher Name Role Phone Unavailable Primary Care Provider Unavailabl e Source Comments [facility],non-owned Affiliates and Associated Physician Practices is amultiple site organization consisting of ambulatory clinics and hospital sitesin [place] and [place]. This disclosure is being madepursuant to the Care Everywhere program and may not contain all information available regarding this patient. Last updated 18.[employer] [facility] Allergies No known active allergies Medications * [...] Patient taking differently:16-50 Units Subcutaneous AT BEDTIME,Pt [id number] units in the morning, 18 units in the evening. Increase as directed., Informant: Patient, Reported on 03/29/2023 Glucagon (Baqsimi One Pack) 3 MG/DOSE POWDIndications:In sulin controlled gestational diabetes mellitus (GDM) in third trimester (HCC) [place] 3 mg into the nose as needed [...] 03/29/2023 1:19 PM CDT Plan of Treatment Not on file
--- NOTE | 2024-08-25 14:56 | ED_ITS ---
HPI - Abdominal Pain General Chief Complaint: Abdominal Pain <Avril Kohler PA-C - Last Filed: 08/26/24 01:32> Stated Complaint: abd pain <Avril Kohler PA-C - Last Filed: 08/26/24 01:32> Time Seen by Provider: 08/25/24 14:56 <Avril Kohler PA-C - Last Filed: 08/26/24 01:32> Focused HPI: This is a 29 year old female that presents to the ER for epigastric pain. Ongoing over the last several weeks. Reports she was evaluated for this at another hospital for this. The pain is largely constant. Reports it is worse after she eats. She does not take anything for reflux currently. Reports nausea and some diarrhea. Denies fever, vomiting, dysuria. GENERAL: Well-appearing, well-nourished, and in no acute distress. HEAD: Normocephalic, atraumatic. CHEST: Clear to auscultation. ?No respiratory distress. HEART: Regular rate and rhythm.? NEURO: ?Alert and oriented x3. Patient screened in triage and initial orders placed.? ?Additional care and disposition to be based upon?diagnostic testing and treatment. <Avril Kohler PA-C - Last Filed: 08/26/24 01:32> History of Present Illness HPI narrative: I agree with the above HPI <Bradly Black MD - Last Filed: 08/25/24 19:26> Related Data Home Medications: Home Medications ?Medication ?Instructions ?Recorded ?Confirmed ?Last Taken ?Type vit no.95-ferrous 1 tablet PO DAILY 01/17/24 06/20/24 05/16/24 09:00 History fumarate 28 mg-folic acid 800 mcg tablet () <Avril Kohler PA-C - Last Filed: 08/26/24 01:32> Allergies/Adverse Reactions: Allergies Allergy/AdvReac Type Severity Reaction Status Date / Time No Known Allergies Allergy Verified 08/25/24 12:52 <Avril Kohler PA-C - Last Filed: 08/26/24 01:32> Review of Systems 2 Review of Systems: All systems reviewed & are unremarkable except as noted in HPI and below <Bradly Black MD - Last Filed: 08/25/24 19:26> [facility] Past Medical History Medical History: Medical History (Updated 08/26/24 @ 00:01 by Erin Jama) Gestational hypertension Gestational diabetes mellitus (GDM) controlled on oral hypoglycemic drug Missed x1 <Avril Kohler PA-C - Last Filed: 08/26/24 01:32> Surgical History Surgical History: Surgical History (Updated 06/20/24 @ 08:43 by Fidelia Garzon APRN) History of tubal ligation Status post repeat low transverse section (~04/2023) Dr Shelby Status post repeat low transverse section (~08/2021) Dr Mansfield History of primary section H/O abdominal surgery exploratory History of dilation and curettage (~01/2020) for missed AB <Avril Kohler PA-C - Last Filed: 08/26/24 01:32> Family History Family History: Family History Mother No pertinent family history Other Hypertension <Avril Kohler PA-C - Last Filed: 08/26/24 01:32> Social History Social History: Social History Smoking status: Never smoker Second hand tobacco smoke exposure: No Alcohol intake: former Substance use: never Do You Feel Safe in your Home?: Yes Lack of Transportation: No Lack of Food: Never True Current Housing: I Have Housing Concerned About Future Housing: No Difficulty Paying Gas/Electric Bills: No Difficulty Paying for Meds: No Currently Unemployed: No Education: High School Diploma/GED Difficulty w/ Childcare or Family Care: No Living arrangements: with family Occupation/Education: occupation Gender identity (if verbalized by the patient): Female Sexual Orientation (if Verbalized by the Patient): Straight or Heterosexual Spiritual care concerns: No <Avril Kohler PA-C - Last Filed: 08/26/24 01:32> Exam 2 Narrative: APPEARANCE: Well appearing, no pain, no distress, well-nourished. HEAD: normocephalic, atraumatic. EYES: PERRLA/EOMI, conjunctivae clear. NOSE: Normal no drainage EARS:TMS clear with good light reflex. THROAT: Pharynx clear, no exudate. NECK: Supple. No adenopathy, no masses. RESPIRATORY: Airway patent, respirations nonlabored. Clear to auscultation bilaterally, no rales, rhonchi, wheezing. CARDIOVASCULAR: Regular rate and rhythm without murmurs rubs or gallops. ABDOMINAL: Epigastric and right upper quadrant tenderness MUSCULOSKELETAL: Moves all extremities. Strength/ROM intact, No edema, No calf tenderness. NEURO: Alert. Cranial nerves II through XII intact. Good gait. Good coordination SKIN: Warm, dry. Normal Color <Bradly Black MD - Last Filed: 08/25/24 19:26> Course Vital Signs Vital signs: Vital Signs Temperature 98.2 F 08/25/24 12:53 Pulse Rate 81 08/25/24 12:53 Respiratory Rate 14 08/25/24 12:53 Blood Pressure 120/57 L 08/25/24 12:53 Pulse Oximetry 100 08/25/24 12:53 Oxygen Delivery Room Air 08/25/24 12:53 Temperature 98.1 F 08/25/24 15:15 Pulse Rate 89 08/25/24 15:34 Respiratory Rate 18 08/25/24 15:34 Blood Pressure 134/61 08/25/24 15:34 Pulse Oximetry 100 08/25/24 15:34 Oxygen Delivery Room Air 08/25/24 15:34 <Avril Kohler PA-C - Last Filed: 08/26/24 01:32> Vital Signs Temperature 98.2 F 08/25/24 12:53 Pulse Rate 81 08/25/24 12:53 Respiratory Rate 14 08/25/24 12:53 Blood Pressure 120/57 L 08/25/24 12:53 Pulse Oximetry 100 08/25/24 12:53 Oxygen Delivery Room Air 08/25/24 12:53 Temperature 98.1 F 08/25/24 15:15 Pulse Rate 89 08/25/24 15:34 Respiratory Rate 18 08/25/24 15:34 Blood Pressure 134/61 08/25/24 15:34 Pulse Oximetry 100 08/25/24 15:34 Oxygen Delivery Room Air 08/25/24 15:34 <Bradly Black MD - Last Filed: 08/25/24 19:26> MDM - Abdominal Pain MDM Narrative Medical decision making narrative: 29-year-old female presented to the emergency department for evaluation for epigastric and left upper quadrant pain. Patient is currently afebrile with no leukocytosis and hemoglobin of 10.5, patient has history of anemia and this is higher than her typical baseline. Patient has no acute abnormalities on her CMP with a negative lipase. Ultrasound was negative for acute cholecystitis. Urine was for most likely contaminated. Urine culture was ordered. Patient did have minor prefer her symptoms with the GI cocktail. Patient was also started on famotidine and Protonix. Patient's symptoms are consistent with esophagitis/gastritis. Patient family updated the results of the workup. Patient was comfortable with plan for follow-up with GI. All questions and concerns were addressed. <Bradly Black MD - Last Filed: 08/25/24 19:26> Differential Diagnosis Differential diagnosis: Likely abdominal pain, constipation, diverticulitis and small bowel obstruction <Bradly Black MD - Last Filed: 08/25/24 19:26> Lab Data Attestation: I reviewed the patient's lab results. <Bradly Black MD - Last Filed: 08/25/24 19:26> Result diagrams: 08/25/24 15:31 08/25/24 15:31 <Avril Kohler PA-C - Last Filed: 08/26/24 01:32> Labs: Lab Results 08/25/24 08/25/24 Range/Units 15:31 15:33 WBC 10.0 (4.5-10.0) K/mm3 RBC 4.05 L (4.2-5.4) M/mm3 Hgb 10.5 L (12.0-15.0) g/dL Hct 33.3 L (37.0-47.0) % MCV 82.2 (80-100) fl MCH 25.9 L (26-34) pg MCHC 31.5 L (32-36) g/dl RDW 15.8 H (11.5-14.5) % Plt Count 425 H D (150-375) k/mm3 MPV 9.9 (7.4-10.4) fl Immature Gran % (Auto) 0.3 (0-0.5) % Neut % (Auto) 46.4 (45.5-73.1) % Lymph % (Auto) 40.0 (18.3-44.2) % [place] % (Auto) 7.9 (2.6-8.5) % Eos % (Auto) 4.9 H (0-4.4) % Baso % (Auto) 0.5 (0.2-1.2) % Lymph # (Auto) 4.00 H (0.9-3.2) K/mm3 [place] # (Auto) 0.8 H (0.1-0.6) K/mm3 Eos # (Auto) 0.5 H (0-0.3) K/mm3 Baso # (Auto) 0.1 (0.0-0.1) K/mm3 Abs Immat Gran (auto) 0.03 (0.00-0.031) K/mm3 Absolute Neuts (auto) 4.6 (1.3-6.7) K/mm3 Absolute Nucleated RBC 0.000 (0.0-0.012) K/mm3 Nucleated RBC % 0.0 (0.0-0.2) % Sodium 140 (137-145) mmol/L Potassium 4.5 (3.4-5.0) mmol/L Chloride 107 (98-107) mmol/L Carbon Dioxide 21 L (22-30) mmol/L Anion Gap 12 (4-12) mmol/L BUN 13 D (7-17) mg/dL Creatinine 0.59 L (0.7-1.0) mg/dL Estim Creat Clear Calc 132 ml/min Estimated GFR > 60 (59 - ) Glucose 90 (65-110) mg/dL Calcium 9.5 (8.4-10.2) mg/dL Total Bilirubin 0.6 (0.2-1.3) mg/dL AST 52 H (14-36) U/L ALT 84 H (6-35) U/L Alkaline Phosphatase 56 (38-126) U/L Total Protein 8.0 (6.3-8.2) g/dL Albumin 4.5 (3.5-5.1) g/dL Lipase 102 (23-300) U/L Urine Color Yellow (Yellow) Urine Appearance Cloudy H (Clear) Urine pH 6.5 (5.0-9.0) Ur Specific [place] 1.028 (1.001-1.035) Urine Protein Trace (Negative) mg/dL Urine Glucose (UA) Negative (Negative) mg/dL Urine Ketones Negative (Negative) mg/dL Ur Blood (Man) Negative (Negative) Urine Nitrate Negative (Negative) Urine Bilirubin Negative (Negative) Urine Urobilinogen 1.0 (<2.0) mg/dL Leukocyte Esterase Rfl Negative (Negative) KIARA/UL Urine RBC 3-5 H (0-2) /hpf Urine WBC 0-5 (0-3) /hpf Ur Squamous Epith Cells Many H (Few) /hpf Urine Bacteria 2+ H /hpf Urine Casts 0-2 POC Urine HCG, Qual Negative (Negative) <Avril Kohler PA-C - Last Filed: 08/26/24 01:32> Lab Results 08/25/24 08/25/24 Range/Units 15:31 15:33 WBC 10.0 (4.5-10.0) K/mm3 RBC 4.05 L (4.2-5.4) M/mm3 Hgb 10.5 L (12.0-15.0) g/dL Hct 33.3 L (37.0-47.0) % MCV 82.2 (80-100) fl MCH 25.9 L (26-34) pg MCHC 31.5 L (32-36) g/dl RDW 15.8 H (11.5-14.5) % Plt Count 425 H D (150-375) k/mm3 MPV 9.9 (7.4-10.4) fl Immature Gran % (Auto) 0.3 (0-0.5) % Neut % (Auto) 46.4 (45.5-73.1) % Lymph % (Auto) 40.0 (18.3-44.2) % [place] % (Auto) 7.9 (2.6-8.5) % Eos % (Auto) 4.9 H (0-4.4) % Baso % (Auto) 0.5 (0.2-1.2) % Lymph # (Auto) 4.00 H (0.9-3.2) K/mm3 [place] # (Auto) 0.8 H (0.1-0.6) K/mm3 Eos # (Auto) 0.5 H (0-0.3) K/mm3 Baso # (Auto) 0.1 (0.0-0.1) K/mm3 Abs Immat Gran (auto) 0.03 (0.00-0.031) K/mm3 Absolute Neuts (auto) 4.6 (1.3-6.7) K/mm3 Absolute Nucleated RBC 0.000 (0.0-0.012) K/mm3 Nucleated RBC % 0.0 (0.0-0.2) % Sodium 140 (137-145) mmol/L Potassium 4.5 (3.4-5.0) mmol/L Chloride 107 (98-107) mmol/L Carbon Dioxide 21 L (22-30) mmol/L Anion Gap 12 (4-12) mmol/L BUN 13 D (7-17) mg/dL Creatinine 0.59 L (0.7-1.0) mg/dL Estim Creat Clear Calc 132 ml/min Estimated GFR > 60 (59 - ) Glucose 90 (65-110) mg/dL Calcium 9.5 (8.4-10.2) mg/dL Total Bilirubin 0.6 (0.2-1.3) mg/dL AST 52 H (14-36) U/L ALT 84 H (6-35) U/L Alkaline Phosphatase 56 (38-126) U/L Total Protein 8.0 (6.3-8.2) g/dL Albumin 4.5 (3.5-5.1) g/dL Lipase 102 (23-300) U/L Urine Color Yellow (Yellow) Urine Appearance Cloudy H (Clear) Urine pH 6.5 (5.0-9.0) Ur Specific [place] 1.028 (1.001-1.035) Urine Protein Trace (Negative) mg/dL Urine Glucose (UA) Negative (Negative) mg/dL Urine Ketones Negative (Negative) mg/dL Ur Blood (Man) Negative (Negative) Urine Nitrate Negative (Negative) Urine Bilirubin Negative (Negative) Urine Urobilinogen 1.0 (<2.0) mg/dL Leukocyte Esterase Rfl Negative (Negative) KIARA/UL Urine RBC 3-5 H (0-2) /hpf Urine WBC 0-5 (0-3) /hpf Ur Squamous Epith Cells Many H (Few) /hpf Urine Bacteria 2+ H /hpf Urine Casts 0-2 POC Urine HCG, Qual Negative (Negative) <Bradly Black MD - Last Filed: 08/25/24 19:26> Imaging Data Radiologist's impression: ITS Impressions Upper Quadrant Ultrasound 08/25/24 16:28 IMPRESSION: Unremarkable sonographic evaluation of the right upper quadrant, as detailed above. <Avril Kohler PA-C - Last Filed: 08/26/24 01:32> ITS Impressions Upper Quadrant Ultrasound 08/25/24 16:28 IMPRESSION: Unremarkable sonographic evaluation of the right upper quadrant, as detailed above. <Bradly Black MD - Last Filed: 08/25/24 19:26> Critical Care Time Critical Care Time Critical Care Time: No <Avril Kohler PA-C - Last Filed: 08/26/24 01:32> Discharge Plan Discharge Clinical Impression: Epigastric abdominal pain <Avril Kohler PA-C - Last Filed: 08/26/24 01:32> Patient Disposition: Home, Self-Care <Avril Kohler PA-C - Last Filed: 08/26/24 01:32> Condition: Stable <Avril Kohler PA-C - Last Filed: 08/26/24 01:32> Instructions: Antibiotic Form, Diet for Stomach Ulcers and Gastritis (ED) <Avril Kohler PA-C - Last Filed: 08/26/24 01:32> Additional Instructions: Omeprazole as directed for 14 days. Avoid alcohol, avoid NSAIDs, follow a bland diet. Have close follow-up with your primary care physician. You should also have close follow-up with GI. If you have any worsening symptoms please call or return to the emergency department. <Avril Kohler PA-C - Last Filed: 08/26/24 01:32> Patient Language: Thai <Avril Kohler PA-C - Last Filed: 08/26/24 01:32> Prescriptions: New omeprazole 20 mg capsule,delayed release(DR/EC) 20 mg PO DAILY 14 Days Qty: 14 0RF No Action PNV cmb#95-ferrous fumarate-FA [] 28 mg iron- 800 mcg Tablet 1 tablet PO DAILY polysaccharide iron complex 150 mg iron Capsule 150 mg PO BIDWM Qty: 90 0RF ibuprofen 600 mg Tablet 600 mg PO Q6H Qty: 30 0RF omeprazole 20 mg capsule,delayed release(DR/EC) 20 mg PO DAILY MDD 20 mg 90 Days Qty: 90 3RF <Avril Kohler PA-C - Last Filed: 08/26/24 01:32> Follow-up/Referrals: Leann,Zachariah Rodriguez MD [Primary Care Provider] - Alex Perez MD [Physician] - <Avril Kohler PA-C - Last Filed: 08/26/24 01:32>
[2024-08-25 15:15] VITALS: BP 129/69; PULSE 79; RESP 18; TEMP 36.7; O2SAT 100
[2024-08-25 15:34] VITALS: BP 134/61; PULSE 89; RESP 18; O2SAT 100
[2024-08-25 15:36] LABS: BEDSIDEPREGUCG Negative (Negative)
--- OUTSIDE RECORDS SUMMARY | 2024-08-25 15:41 | XMS_ITS | Clinical Summary ---
Author Organization [facility] Address [address] [place] [phone] Phone Care Team Providers Care Quill Machine Operator Name Role Phone ABDULAZIZ SANHCEZ MD Primary Care Provider [phone] Reason for Visit and Chief Complaint NO [...] Effect liu Dates 1 - [facility] [id number] BALDEMAR SÁNCHEZ Child Clinical Notes Includes: Clinical Notes from this encounter No Clinical Notes Recorded
--- OUTSIDE RECORDS SUMMARY | 2024-08-25 15:41 | XMS_ITS ---
Care Plan - [facility] Created on: August 25, 2024 LINA AMAYA : 1995 Sex: Female Author Organization [facility] Address [address] [place] [address] Phone Care Team Providers Care Senior Treasury Consultant Name Role Phone DANIEL BROWN, ABDULAZIZ Lema Primary Care Provider
--- OUTSIDE RECORDS SUMMARY | 2024-08-25 15:41 | XMS_ITS | Clinical Summary ---
Author Organization [facility] Address [address] [place] [phone] Phone Care Team Providers Care Meter Mechanic Name Role Phone ABDULAZIZ SANCHEZ MD Primary Care Provider [phone] Reason for Visit and Chief Complaint NO [...] Subscriber Relationship Effect liu Dates 1 - [facility] [id number] BALDEMAR SÁNCHEZ Child Clinical Notes Includes: Clinical Notes from this encounter No Clinical Notes Recorded
--- OUTSIDE RECORDS SUMMARY | 2024-08-25 15:41 | XMS_ITS | Clinical Summary ---
Author Organization [facility] [employer] [place] Address [address] [place] [phone] Care Team Providers Care Leather Coverer Name Role Phone Unavailable Primary Care Provider [...]
--- OUTSIDE RECORDS SUMMARY | 2024-08-25 15:41 | XMS_ITS | Referral Summary ---
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 LINING FINISHER HELPER Gender Identity Not on file Sexual Orientation Not on file Last Filed Vital Signs Vital Sign Reading Time Taken Comments Blood Pressure 130/78 05/06/2024 9:06 AM ASBESTOS BRAKE LINING FINISHER HELPER Pulse 98 05/06/2024 9:06 AM ASBESTOS BRAKE LINING FINISHER HELPER Temperature 36.9 C (98.4 F) 05/06/2024 9:06 AM ASBESTOS BRAKE LINING FINISHER HELPER Respiratory Rate 20 05/06/2024 9:06 AM ASBESTOS BRAKE LINING FINISHER HELPER Oxygen Saturation 98% 05/06/2024 9:06 AM ASBESTOS BRAKE LINING FINISHER HELPER Inhaled Oxygen Concentration - - Weight 105.2 kg (232 lb) 05/06/2024 9:06 AM ASBESTOS BRAKE LINING FINISHER HELPER Height 153.7 cm (5' 0.5 ) 05/06/2024 9:06 AM ASBESTOS BRAKE LINING FINISHER HELPER Body Mass Index 44.56 05/06/2024 9:06 AM ASBESTOS BRAKE LINING FINISHER HELPER Plan of Treatment Not on file Insurance [employer] [facility] [employer] Care Teams Strategy Manager Relationship Specialty Start Date End Date Zachariah Noriega MD [address] [place] [address] PCP - General Internal Medicine 03/17/23
--- OUTSIDE RECORDS SUMMARY | 2024-08-25 15:41 | XMS_ITS | Clinical Summary ---
Author Organization [facility] [employer] Address [address] [place] [address] Care Team Providers Care Employee Benefits Director Name Role Phone Unavailable Primary Care Provider Unavailabl e Source Comments [facility] [employer],non-owned Affiliates and Associated Physician Practices is amultiple site organization consisting of ambulatory clinics and hospital sitesin [place] and [place]. This disclosure is being madepursuant to the Care Everywhere program and may not contain all information available regarding this patient. Last updated 18.[employer] Allergies No known active allergies Medications * [...] diabetes mellitus (GDM) in third trimester (HCC) Linneus 3 mg into the nose as needed [...]
--- OUTSIDE RECORDS SUMMARY | 2024-08-25 15:41 | XMS_ITS | Encounter Summary ---
Author Organization [facility] Address [address] [place] [address] Phone Care Team Providers Care Laminator Hand Name Role Phone Zachariah Noriega MD Primary Care Provider [phone] Fidelia Mansfield MD Unavailable [phone] Azael Shelby MD Unavailable [phone] Encounter Details Date Type Department Care Team (Late st Contact Info) Description 08/24/2024 6:40 PM VEGETABLE SPECKER - 08/24/2024 7:16 PM VEGETABLE SPECKER Emergency [facility] [address] [place] [address] Discharge Disposition: LWBS Social History [...] she would call her PCP on Monday. TABLE SPECKER documented in this encounter Plan of Treatment Upcoming Encounters Date Type Department Care Team (Late st Contact Info) Description 08/28/2024 10:15 AM VEGETABLE SPECKER Office Visit [facility] - General Surgery - [place] [address] [facility] [address] [place] [address] Zachariah Noriega MD [address] [place] [address] Dominic Cabello MD [address] [address] 02/25/2025 10:30 AM CDT Office Visit [facility] - Primary Care - [place] [address] [place] [address] Zachariah Noriega MD [address] [place] [address] documented as of this encounter Visit Diagnoses Not on filedocumented in this encounter Additional Health Concerns Assessment Noted Time PHQ-9 Depression Total Score: 0 07/20/19 4:00 PM VEGETABLE SPECKER documented as of this encounter Care Teams Laminator Hand Relationship Specialty Start Date End Date Zachariah Noriega MD [address] [place] [address] PCP - General Internal Medicine 07/20/20 Fidelia Mansfield MD [address] [place] [address] Consulting Physician Obstetrics & Gynecology 07/20/20 Azael Shelby MD [address] [facility] [address] [facility] [address] [place] [address] Consulting Physician Obstetrics & Gynecology 08/13/24 documented as of this encounter
--- OUTSIDE RECORDS SUMMARY | 2024-08-25 15:41 | XMS_ITS | Clinical Summary ---
Author Organization [facility] Address [address] [place] [phone] Care Team Providers Care Air Control Electronics Operator Name Role Phone Zachariah Noriega MD Primary [...] on file Legal Sex Female 1:23 PM TRUCK DESPATCHER Gender Identity Not on file Sexual Orientation Not on file Obstetrics History Para Term AB IAB SAB Ectopic Multiple Livin g Live Births 2 Date Outcome GA Total Labor Labor/2nd/3rd Weight Sex Type Anes PTL Skylar A1 A5 Name Clin Current Last Filed Vital Signs Vital Sign Reading Time Taken Comments Blood Pressure 130/78 05/06/2024 9:06 AM TRUCK DESPATCHER Pulse 98 05/06/2024 9:06 AM TRUCK DESPATCHER Temperature 36.9 C (98.4 F) 05/06/2024 9:06 AM TRUCK DESPATCHER Respiratory Rate 20 05/06/2024 9:06 AM TRUCK DESPATCHER Oxygen Saturation 98% 05/06/2024 9:06 AM TRUCK DESPATCHER Inhaled Oxygen Concentration - - Weight 105.2 kg (232 lb) 05/06/2024 9:06 AM TRUCK DESPATCHER Height 153.7 cm (5' 0.5 ) 05/06/2024 9:06 AM TRUCK DESPATCHER Body Mass Index 44.56 05/06/2024 9:06 AM TRUCK DESPATCHER Plan of Treatment Health Maintenance Due Date [...] Insurance [employer] Care Teams Air Control Electronics Operator Relationship Specialty Start Date End Date Zachariah Noriega MD [address] [place] [address] PCP - General Internal Medicine 03/17/23
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
--- OUTSIDE RECORDS SUMMARY | 2024-08-25 15:41 | XMS_ITS | Clinical Summary ---
Author Organization [facility] Address [address] [place] [address] Phone Care Team Providers Care Polish Compounder Name Role Phone ABDULAZIZ SANCHEZ MD Primary Care Provider [phone] Reason for Visit and Chief Complaint NO [...] Diagnosis NO SHOW DUGLAS SIERRA RN [facility] TOOL MAKER APPRENTICE 09/13/2018 9:47AM 11:59PM Insurance Includes: Active Insurance Policies Plan Name Member ID Group # Subscriber Relationship Effect liu Dates 1 - [facility] [id number] BALDEMAR SÁNCHEZ Child Clinical Notes Includes: Clinical Notes from this encounter No Clinical Notes Recorded
--- OUTSIDE RECORDS SUMMARY | 2024-08-25 15:41 | XMS_ITS | Patient Health Summary ---
Author Organization [facility] [employer] Address [address] [place] [address] Care Team Providers Care Ornithology Teacher Name Role Phone Unavailable Primary Care Provider Unavailabl e Note from [facility],non-owned Affiliates and Associated Physician Practices is amultiple site organization consisting of ambulatory clinics and hospital sitesin [place], [place], [place] and [place]. This disclosure is being madepursuant to the Care Everywhere program and may not contain all information available regarding this patient. Last updated 18.[facility] [employer] Allergies No known active allergies Medications * [...] (Baqsimi One Pack) 3 MG/DOSE POWD(Started 03/01/2023) Lincoln 3 mg into the nose as needed [...] gestational diabetes mellitus (GDM) in third trimester ([facility]), BMI 40.0-44.9, adult ([facility]), 33 weeks gestation of ([facility]) * SONOGRAM - COMPLETE(Performed 02/22/2023) Performed for Gestational diabetes mellitus (GDM), antepartum, gestational diabetes method of control unspecified (HCC), History of delivery, History of dilation and curettage Results * BIOPHYSICAL PROFILE W NST (03/22/2023 2:41 PM CDT) Anatomical Region Laterality Modality Other 03/22/2023 2:4 1 PM CDT Narrative 03/22/2023 4:08 PM CDT [facility] [place] PHONE: FAX: Pat. Name: ALIYAH WILL Wanda Rojas. No: [id number] Study Date: 03/22/2023 2:41pm , Age: 08 1995, 28 Pregnancies: 4, Para 1112 Height: 61 in Weight: 224 lb LMP: 07/29/2022 GA by LMP: 33w5d GA by Base: 33w5d NORMA: 05/05/2023 GA by US: 35w3d NORMA: 04/23/2023 GA Selected: 33w5d (LMP) NORMA: 05/05/2023 Referring MD: Azael Shelby MD Volcanology Teacher: Vero Apodaca RDMS CPT4: 81329,84577 BMI: 42.32 Hist/Ind: G1: C/S 36 wk 2608 gm severe preeclampsia G2: SAB 10 wk D&C G3: C/S 37 wk 3572 gm GDM-A2 G4: GDM-A2 on insulin, Class III obesity, Anemia, Low-risk cf-DNA MEASUREMENTS & AGE GROWTH EVALUATION Measurement GA Range Srce %for GA Ratios ----- ---- ------- BPD 8.7 cm 34w6d (75v3k-38b5t) Hadl BPD 79% FL/BPD 0.73 (0.71 - 0.87) HC 33.5 cm 38w2d (55n6c-95l5j) Hadl HC 98% FL/AC 0.20 (0.20 - 0.24* AC 31.9 cm 35w6d (05g8r-76m6a) Hadl AC 95% HC/AC 1.05 (0.95 - 1.13) FL 6.3 cm 32w4d (08t2e-20n1v) Hadl FL 14% CI 0.70 (0.70 - 0.86) HL 5.7 cm 33w0d (12h7x-06j7b) Vincent HL 39% GA for sonogram 35w3d (06e6f-30g4i) Weight Estimate: based on (BPD,HC,AC,FL) Avg Weight: [...] Continue twice weekly testing (being performed at [facility]) Repeat growth assessment in 4 weeks if undelivered See DOCUMENTATION SUPERVISOR and Diabetic educators notes Thank you for allowing us the opportunity to care for your patient Ba Anand MD <Electronic Signature> 03/22/2023 04:08pm Azael Cobian MD [facility] ORDERABLES * SONOGRAM - COMPLETE (02/22/2023 1:32 PM CDT) Anatomical Region Laterality Modality Other 02/22/2023 1:32 PM CDT Narrative 02/22/2023 3:53 PM CDT [facility] [place] PHONE: FAX: Pat. Name: ALIYAH WILL Pat. No: [id number] Study Date: 02/22/2023 1:32pm , Age: 08 1995, 28 Pregnancies: 4, Para 1112 Height: 61 in Weight: 224 lb LMP: 07/29/2022 GA by LMP: 29w5d GA by US: 30w2d NORMA: 05/01/2023 GA Selected: 29w5d (LMP) NORMA: 05/05/2023 Referring MD: Azael Shelby MD Volcanology Teacher: Vero Apodaca RDMS CPT4: 41831 BMI: 42.32 Hist/Ind: G1: C/S 36 wk 2608 gm severe preeclampsia G2: SAB 10 wk D&C G3: C/S 37 wk 3572 gm GDM-A2 G4: GDM-A1, Class III obesity, Anemia, Low-risk cf-DNA MEASUREMENTS & AGE GROWTH EVALUATION Measurement GA Range Srce %for GA Ratios ----- ---- ------- BPD 7.3 cm 29w3d (01w7f-79z7s) Hadl BPD 29% FL/BPD 0.75 (0.71 - 0.87) HC 28.7 cm 31w4d (99i5w-07w6l) Hadl HC 70% FL/AC 0.20 (0.20 - 0.24* AC 28.1 cm 32w1d (13j3w-52x9h) Hadl AC 96% HC/AC 1.02 (0.98 - 1.17) FL 5.5 cm 29w0d (98u2r-20c7f) Hadl FL 19% CI 0.70 (0.70 - 0.86* HL 5.1 cm 29w6d (13n3t-03c8l) Vincent HL 53% Cere 3.4 cm 28w6d (90y6u-95b4l) Michele Cere32% GA for sonogram 30w2d (59m3k-30x5c) Weight Estimate: based on (HC,AC,FL) [place]lock Weight: [...] stated EDC from LMP * Referred to [facility] for consult & obstetrical U/S secondary to: [...] mg/dL - The 100-gram 3-hour OGTT = [phone] mg/dL - Hemoglobin A1c was 5.5% Aug-2022 [...] - Please also refer to the separate Diabetic/Narcotics And Vice Detective consultation report of today - Oral hypoglycemic [...] kg/m2 1X-weekly starting @ 34w0d - Current [facility] guidelines BMI >= 35.0 kg/m2 1X-weekly 8-point BPP (NST PRN) starting @ 36w0d - Weight gain recommendations during barrow from the IOM & ACOG - BMI >= 30.0 kg/m2: Total Weight 11-20 lb, 2nd & 3rd trimesters 0.5 lb/week - References cited in this section - The 2008 [place] of Medicine Weight gain during : reexamining [...] * Thank you very much for requesting [facility] participation in her obstetrical care * Findings were explained & questions were addressed & precautions were given to patient * U/S does not detect all structural & functional spwdptlt-ikxcw-vpvttkdyl abnormalities * Telemedicine services were performed for this U/S examination & MFM consultation - Patient's identity was confirmed at the [facility] office - Appropriateness of the telehealth consult was confirmed - Informed consent for telemedicine services was obtained & scanned into EMR - Patient assisted assessment by providing capillary blood glucose data - Modality was secure interactive audio-video session using [employer] - Patient site location was [facility] & nurse presenter was Justice Holt - Distant site provider was Ba Anand MD & location was home office - Consult = 45 minutes, with >50% involving gizk-iw-rtcv counseling & coordination of care Ba Anand MD <Electronic Signature> 02/22/2023 03:53pm Azael Cobian MD [facility] ORDERABLES
--- OUTSIDE RECORDS SUMMARY | 2024-08-25 15:41 | XMS_ITS | Encounter Summary ---
Author Organization [facility] [employer] [facility] Care Team Providers Care Stencil Maker Name Role Phone Zachariah Noriega MD Primary Care Provider [phone] Fidelia Mansfield MD Unavailable [phone] Azael Shelby MD Unavailable Encounter Details Date Type Department Care Team [...] st Contact Info) Description 08/28/2024 10:15 AM PATENTS EXAMINER Office Visit [facility] Medical Group - General Surgery - [place] #[address] [phone] Zachariah Noriega MD [address] [place] [address] Dominic Cabello MD #[address] [place] [address] 02/25/2025 10:30 AM CDT Office Visit [facility] - Primary Care - [place] [address] [place] [phone] Zachariah Noriega MD [address] [place] [address] documented as of this encounter Visit Diagnoses Not on filedocumented in this encounter Additional Health Concerns Assessment Noted Time PHQ-9 Depression Total Score: 0 07/20/19 21 4:00 PM PATENTS EXAMINER documented as of this encounter Care Teams Stencil Maker Relationship Specialty Start Date End Date Zachariah Noriega MD [address] [place] [address] PCP - General Internal Medicine 07/20/20 Fidelia Mansfield MD [address] [place] [address] Consulting Physician Obstetrics & Gynecology 07/20/20 Azael Shelby MD [address] [facility] [address] [facility] [address] [place] [address] Consulting Physician Obstetrics & Gynecology 08/13/24 documented as of this encounter
--- OUTSIDE RECORDS SUMMARY | 2024-08-25 15:41 | XMS_ITS | Referral Summary ---
Author Organization [facility] Address [address] [place] [address] Care Team Providers Care Manager Adult Name Role Phone Unavailable Primary Care Provider Unavailabl e Source Comments [facility],non-owned Affiliates and Associated Physician Practices is amultiple site organization consisting of ambulatory clinics and hospital sitesin [place], [place], [place] and [place]. This disclosure is being madepursuant to the Care Everywhere program and may not contain all information available regarding this patient. Last updated 18.[facility] Allergies No known active allergies Medications * [...] Patient taking differently:16-50 Units Subcutaneous AT BEDTIME,Pt [id number] units in the morning, 18 units in the evening. Increase as directed., Informant: Patient, Reported on 03/29/2023 Glucagon (Baqsimi One Pack) 3 MG/DOSE POWDIndications:In sulin controlled gestational diabetes mellitus (GDM) in third trimester (HCC) [place] 3 mg into the nose as needed [...]
--- OUTSIDE RECORDS SUMMARY | 2024-08-25 15:41 | XMS_ITS | Clinical Summary ---
Author Organization [facility] Address [address] [place] [phone] Phone Care Team Providers Care Aerial Erector Name Role Phone ABDULAZIZ SANCHEZ MD Primary Care Provider [phone] Reason for Visit and Chief Complaint PROBLEM [...] Subscriber Relationship Effect liu Dates 1 - [facility] [id number] BALDEMAR SÁNCHEZ Child Clinical Notes Includes: Clinical Notes from this encounter No Clinical Notes Recorded
--- OUTSIDE RECORDS SUMMARY | 2024-08-25 15:41 | XMS_ITS ---
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 09/07/2017 Last Documented On 8 1:38PM ; [facility] Not using contraception 09/07/2017 Last Documented On 8 1:38PM ; [facility] Last pap smear date 06/29/2016 8 Last Documented On 8 1:38PM ; [facility] History of Pap smear done 06/29/201605/2017 Last Documented On 7 2:28PM ; [facility] Eclampsia during 06/29/2016 Last Documented On 6 2:07PM ; [facility] History of anxiety disorder NOS little b i 05/17/2013 Last Documented On 3 11:14AM ; [facility] History of depression 05/17/2013 Last Documented On 3 11:14AM ; [facility] 1 05/17/2013 Last Documented On 3 11:14AM ; [facility] Para 1 05/17/2013 Last Documented On 3 11:14AM ; [facility] History of asthma 01/14/2013 Last Documented On 3 4:09PM ; [facility] History of heart disease MGM PGM 013 Last Documented On 3 4:09PM ; [facility] History of metabolic disorders FOB FAMIL Y HAS DIABETES 01/14/2013 Last Documented On 3 4:09PM ; [facility] History of psychiatric disorders PT HAS BORDERLINE PERS DISORDER 01/14/2013 Last Documented On 3 4:09PM ; [facility] No recent change in medical history PT WAS TAKING DEPOKOTE AND TRAZADONE UNTIL EARLY JUNE 2012 FOR PERSONALITY ISSUES. ADMITS FLUCONAZOLE X 1 DOSE 07/17/12 01/14/2013 Last Documented On 3 4:09PM ; [facility] Family History Includes: Family History in patient's chart Description Last Updated Paternal grandmother's history of malign ant female breast neoplasm PGM 06/29/2016 Last Documented On 6 2:07PM ; [facility] Family history of malignant female breas t neoplasm PGM 12/18/2013 Last Documented On 4 3:40PM ; [facility] Family history unchanged 12/18/2013 Last Documented On 4 3:40PM ; [facility] Family history of diabetes mellitus MOM HAD IT DURING 07/31/2012 Last Documented On 3 5:11PM ; [facility] Family history of hypercholesterolemia G [employer]AT [employer] PARENTS 07/31/2012 Last Documented On 3 5:11PM ; [facility] Family history of hypertension MOTHER Last Documented On 3 5:11PM ; [facility] Review of Systems Review of Systems not [...] Subscriber Relationship Effect liu Dates 1 - [facility] [id number] BALDEMAR SÁNCHEZ Child Clinical Notes Includes: Signed Clinical Notes starting from 07/22/2022 No Clinical Notes Recorded
--- OUTSIDE RECORDS SUMMARY | 2024-08-25 15:41 | XMS_ITS | Clinical Summary ---
Author Organization [facility] Address [address] [place] [id number] Phone Care Team Providers Care Accounts Payable Bookkeeper Name Role Phone ABDULAZIZ SANCHEZ MD Primary Care Provider [phone] Reason for Visit and Chief Complaint NO [...] Subscriber Relationship Effect liu Dates 1 - [facility] [id number] BALDEMAR SÁNCHEZ Child Clinical Notes Includes: Clinical Notes from this encounter No Clinical Notes Recorded
[2024-08-25 15:43] LABS: Basophils Absolute Auto 0.1 K/mm3 (0.0-0.1); Basophils Percent Auto 0.5 % (0.2-1.2); Eosinophils Absolute Auto 0.5 K/mm3 (0-0.3); Eosinophils Percent Auto 4.9 % (0-4.4); Hematocrit 33.3 % (37.0-47.0); Hemoglobin 10.5 g/dL (12.0-15.0); Immature Granulocyte Absolute 0.03 K/mm3 (0.00-0.031); Immature Granulocyte Percent A 0.3 % (0-0.5); Mean Corpuscular HGB Conc 31.5 g/dl (32-36); Mean Corpuscular Hemoglobin 25.9 pg (26-34); Mean Corpuscular Volume 82.2 fl (80-100); Mean Platelet Volume 9.9 fl (7.4-10.4); Monocytes Absolute Auto 0.8 K/mm3 (0.1-0.6); Monocytes Percent Auto 7.9 % (2.6-8.5); Neutrophils Absolute Auto 4.6 K/mm3 (1.3-6.7); Neutrophils Percent Auto 46.4 % (45.5-73.1); Platelet Count Result 425 k/mm3 (150-375); Red Blood Count 4.05 M/mm3 (4.2-5.4); Red Cell Distribution Width 15.8 % (11.5-14.5)
[2024-08-25 15:46] LABS: Add Urine Microscopic? YES; Appearance Urine Cloudy (Clear); Bacteria Urine 2+ /hpf; Bilirubin Urine Negative (Negative); Blood Urine Negative (Negative); Color Urine Yellow (Yellow); Glucose Urine UA Negative (Negative); Ketones Urine Negative (Negative); Leukocyte Esterase Ur Negative LEU/UL (Negative); Nitrate Urine Negative (Negative); Non Pathogenic Casts 0-2; Protein Urine Trace mg/dL (Negative); Specific Grav Ur 1.028 (1.001-1.035); Squamous Epithelial Cell Urine Many /hpf (Few); WBC Urine 0-5 /hpf (0-3); pH Urine 6.5 (5.0-9.0)
[2024-08-25 15:58] LABS: Alanine Aminotransferase 84 U/L (6-35); Albumin Level 4.5 g/dL (3.5-5.1); Alkaline Phosphatase 56 U/L (38-126); Anion Gap 12 mmol/L (4-12); Aspartate Amino Transferase 52 U/L (14-36); Bilirubin,Total 0.6 mg/dL (0.2-1.3); Blood Urea Nitrogen 13 mg/dL (7-17); Calcium 9.5 mg/dL (8.4-10.2); Carbon Dioxide 21 mmol/L (22-30); Chloride 107 mmol/L (98-107); Estimated CRCL calculation 132 ml/min; Estimated Glomerular Filt Rate > 60; Glucose 90 mg/dL (65-110); Lipase 102 U/L (23-300); Potassium 4.5 mmol/L (3.4-5.0); Sodium 140 mmol/L (137-145)
[2024-08-25] MEDS: BELLADONNA ALK/PHENOB ELIX 10 ML, MAG HYDROX/ALUMINUM HYD/SIMETH 30 ML, LIDOCAINE 2% VI... PO (17:03)
[2024-08-25] MEDS: FAMOTIDINE 20 MG/2 ML VIAL IV PUSH (17:03)
[2024-08-25] MEDS: PANTOPRAZOLE SODIUM IV 40 MG VIAL IV PUSH (17:03)
== END 2024-08-25 18:37 | disposition home or self-care (01) ==
PROVIDERS: Physician Assistant; Emergency Provider Emergency Medicine; PCP Internal Medicine
DX: R10.13 Epigastric pain (principal)
CPT/HCPCS: 36415; 76705; 80053; 81001; 81025; 83690; 85025; 96374; 96375; 99284; A9270; J2470

== ENCOUNTER 2024-12-06 00:45 | Day surgery (SDC) | payer OTHER, SELFPAY ==
[2024-11-26 11:56] VITALS: BMI 41.6
--- OUTSIDE RECORDS SUMMARY | 2024-12-06 00:48 | XMS_ITS | Clinical Summary ---
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 PM CDT [facility] LDL 48 <130 mg/dL 09/19/2024 2:16 PM CDT [facility] VLDL 22 10 - 50 mg/dL 09/19/2024 2:16 PM CDT [facility] CHOL/HDL RATIO 3.9 0.0 - 4.4 09/19/2024 2:16 PM CDT [facility] NON-HDL CHOLESTEROL 70 <130 mg/dL 09/19/2024 2:16 PM CDT [facility] IS THE PATIENT REQUIRED TO BE FASTING? Yes 09/19/2024 2:16 PM CDT [facility] HAS THE PATIENT BEEN FASTING? Yes 09/19/2024 2:16 PM CDT [facility] Blood Venipuncture / Unknown 09/19/2024 10:32 AM CDT 09/19/2024 10:32 AM CDT us Zachariah Noriega MD CHEMISTRY ORDERABLES Diamond l Result Performing Organization Address City/[facility]/ZIP Co de Phone Number [facility] [address] [place] [address] * GASTROENTEROLOGY CONSULT (09/17/2024 12:00 AM CDT) 09/17/2024 us Provider Scan GENERIC SCAN ORDERS CONSULT Diamond mckee Result SCAN * HEPATITIS C ANTIBODY (11/20/2023 12:00 AM CDT) 11/20/2023 us Provider Scan CHEMISTRY ORDERABLES Final Resul t SCAN from Last 3 Months or Most Recently Relevant to Health Maintenance Insurance [facility] Care Teams Warehouser Relationship Specialty Start Date End Date Zachariah Noriega MD [address] [place] [address] PCP - General Internal Medicine 07/20/20 Azael Shelby MD [address] [facility] [address] [facility] [address] [place] [address] Consulting Physician Obstetrics & Gynecology 08/13/24 Dominic Cabello MD [address] [facility] [address] [place] [address] Consulting Physician Colon and Rectal Surgery 08/28/24 MANUEL RODARTE MD Consulting Physician Gastroenterology 09/26/24
--- OUTSIDE RECORDS SUMMARY | 2024-12-06 00:48 | XMS_ITS | Clinical Summary ---
Author Organization [facility] [place] Address [address] [place] [address] Care Team Providers Care Soda Room Operator Name Role Phone Unavailable Primary Care Provider Unavailabl e Encounters Date Type Department Care Team Description 10/01/2024 External Device Data [facility] ABSTRACTION Provider, Abstract 09/07/2024 External Device Data [facility] ABSTRACTION Provider, Abstract 09/06/2024 External Device Data [facility] ABSTRACTION Provider, Abstract [...] 3-dose series) 2014 CERVICAL CANCER SCREENING 02/01/2016 HPV/Cotest (21-29) 02/01/2016 PAP SMEAR 02/01/2016 DTAP/TDAP/TD VACCINES (3 - Td or Tdap) 03/14/2033 03/14/2023, 09/08/2021 INFLUENZA VACCINE Completed 04/02/2024, , 04/04/2022, Additional history exists HPV VACCINES Aged Out No longer eligi ble based on patient's age to complete this topic Insurance ALLEGIANCE OPEN ACCESS ALLEGIANCE OPEN ACCESS
--- OUTSIDE RECORDS SUMMARY | 2024-12-06 00:48 | XMS_ITS | Clinical Summary ---
Author Organization [facility] [facility] Address [address] [place] [address] Care Team Providers Care Chemist Assistant Name Role Phone Unavailable Primary Care Provider Unavailabl e Source Comments [facility],non-owned Affiliates and Associated Physician Practices is amultiple site organization consisting of ambulatory clinics and hospital sitesin [place], [place], [place] and [place]. This disclosure is being madepursuant to the Care Everywhere program and may not contain all information available regarding this patient. Last updated 18.[facility] Allergies No known active allergies Medications * Be aware that medications may not be up to date on this document. Alwaysverify current medications with the patient. Vit-DSS-Fe Fum-FA ( vitamin with iron) tablet Take 1 (one) tablet by mouth once daily Active ferrous sulfate 325 (65 FE) MG tablet Take 1 (one) tablet by mouth once daily Active pyridoxine (Vitamin B-6) 25 MG tablet Take 2 (two) tablets by mouth once daily Active vitamin D3 (Cholecalcifero l) 25 MCG (1000 UNITS) tablet Take 1 (one) tablet by mouth once daily Active aspirin (Aspirin) 81 MG chew tablet Take 1 (one) tablet by mouth once daily Active insulin detemir (Levemir) penIndications: Insulin controlled gestational diabetes mellitus (GDM) in third trimester (HCC) Inject 16 (sixteen) Units to 50 (fifty) Units subcutaneously at bedtime Start with 8 units in the morning, 8 units in the evening. Increase as directed. 15 mL 3 03/01/20 23 Active Additional Information Patient taking differently:16-50 Units Subcutaneous AT BEDTIME,Pt taomla76 units in the morning, 18 units in the evening. Increase as directed., Informant: Patient, Reported on 03/29/2023 Glucagon (Baqsimi One Pack) 3 MG/DOSE POWDIndications :Insulin controlled gestational diabetes mellitus (GDM) in third trimester ([facility]) [place] 3 mg into the nose as needed FOr emergency use if unable to treat low blood sugar with food or drink 1 Each 03/01/20 Active pantoprazole EC (Protonix) 20 MG tabletIndicatio ns:Heartburn Take 1 (one) tablet by mouth once daily Reasons: Heartburn 30 tablet 1 03/22/20 Active Insulin Pen Needle 32G X 4 MM MISCIndications :Insulin controlled gestational diabetes mellitus (GDM) in third trimester ([facility]) Use 1 Each 4 times daily 100 Each 3 03/22/20 Active insulin lispro (HumaLOG KwikPen) 100 UNIT/ML [...] prior to eating meal. 15 mL 3 03/22/20 Active Active Problems Problem Noted Date Diagnosed [...] drink = 0.6 oz pur e alcohol) Comments No Sex and Gender Information Value Date Recorded Sex Assigned at Not on file Legal Sex Female 11:50 AM CDT Gender Identity Not on file [...] 1:19 PM CDT Height 154.9 cm (5' 1) 03/29/2023 1:19 PM CDT Body Mass Index 44.4 03/29/2023 1:19 PM CDT Plan of Treatment Health Maintenance Due Date Last Done Comments PAP SMEAR 1995 HIV SCREENING 2010 HEPATITIS C SCREENING 01/26/2013 DTAP/TDAP/TD VACCINES (1 - Tdap) 2014 HEPATITIS B VACCINE (1 of 3 - 19+ 3-dose series) 2014 COVID-19 VACCINE (3 - 2023-2 5 season) 2024 05/21/2021, 04/30/2021 DEPRESSION SCREENING 07/03/2024 INFLUENZA VACCINE (Season Ended) 2025 04/04/2022, 07/20/2020, 06/30/2015 ZOSTER VACCINE (1 of 2) 2045 HIB VACCINE Aged Out No longer eligi ble based on patient's age to complete this topic HPV VACCINE Aged Out No longer eligi ble based on patient's age to complete this topic MENINGOCOCCAL (Group B) VACCINE SHARED DECISION-MAKING Aged Out No longer eligible based on patient's age to complete this topic MENINGOCOCCAL GROUPS A/C/Y/W VACCINE Aged Out No longer eligible b ased on patient's age to complete this topic PNEUMOCOCCAL VACCINE Aged Out No long er eligible based on patient's age to complete this topic Insurance CIG CIGNA CIGNA SELF PAY NO INSURANCE Member Subscriber Plan / Payer (Ef fective for All Dates) Name:Aliyah Will Wanda Member ID:Not on file Relation to Subscriber:Not on file Name:ALIYAH WILL Wanda Subscriber ID:Not on file (Home) Address: [address] [place] [address] Payer ID:Not on file Group ID:Not on file Type:Self Pay Address: [place], [place] ANTHEM ANTHEM ANTHEM CIGNA
--- OUTSIDE RECORDS SUMMARY | 2024-12-06 00:48 | XMS_ITS | Clinical Summary ---
Author Organization [facility] Address [address] [place] [phone] Care Team Providers Care Cob Sawyer Name Role Phone Zachariah Noriega MD Primary [...] on file Legal Sex Female 1:23 PM RESPOOLER Gender Identity Not on file Sexual Orientation Not on file Obstetrics History Para Term AB IAB SAB Ectopic Multiple Livin g Live Births 2 Date Outcome GA Total Labor Labor/2nd/3rd Weight Sex Type Anes PTL Skylar A1 A5 Name Clin Current Last Filed Vital Signs Vital Sign Reading Time Taken Comments Blood Pressure 130/78 05/06/2024 9:06 AM RESPOOLER Pulse 98 05/06/2024 9:06 AM RESPOOLER Temperature 36.9 C (98.4 F) 05/06/2024 9:06 AM RESPOOLER Respiratory Rate 20 05/06/2024 9:06 AM RESPOOLER Oxygen Saturation 98% 05/06/2024 9:06 AM RESPOOLER Inhaled Oxygen Concentration - - Weight 105.2 kg (232 lb) 05/06/2024 9:06 AM RESPOOLER Height 153.7 cm (5' 0.5) 05/06/2024 9:06 AM RESPOOLER Body Mass Index 44.56 05/06/2024 9:06 AM RESPOOLER Plan of Treatment Health Maintenance Due Date [...] Insurance CIGNA ALLEGIANCE CIGNA ALLEGIANCE Care Teams Cob Sawyer Relationship Specialty Start Date End Date Zachariah Noriega MD [address] [place] [address] PCP - General Internal Medicine 03/17/23
--- OUTSIDE RECORDS SUMMARY | 2024-12-06 00:48 | XMS_ITS | Referral Summary ---
Author Organization [facility] Address [address] [place] [phone] Care Team Providers Care Elementary Education Teacher Name Role Phone Zachariah Noriega MD Primary [...] on file Legal Sex Female 1:23 PM MILLWRIGHT Gender Identity Not on file Sexual Orientation Not on file Last Filed Vital Signs Vital Sign Reading Time Taken Comments Blood Pressure 130/78 05/06/2024 9:06 AM MILLWRIGHT Pulse 98 05/06/2024 9:06 AM MILLWRIGHT Temperature 36.9 C (98.4 F) 05/06/2024 9:06 AM MILLWRIGHT Respiratory Rate 20 05/06/2024 9:06 AM MILLWRIGHT Oxygen Saturation 98% 05/06/2024 9:06 AM MILLWRIGHT Inhaled Oxygen Concentration - - Weight 105.2 kg (232 lb) 05/06/2024 9:06 AM MILLWRIGHT Height 153.7 cm (5' 0.5) 05/06/2024 9:06 AM MILLWRIGHT Body Mass Index 44.56 05/06/2024 9:06 AM MILLWRIGHT Plan of Treatment Not on file Insurance [facility] ALLEGIANCE Care Teams Elementary Education Teacher Relationship Specialty Start Date End Date Zachariah Noriega MD [address] [place] [address] PCP - General Internal Medicine 03/17/23
--- OUTSIDE RECORDS SUMMARY | 2024-12-06 00:48 | XMS_ITS | Data Portability ---
Author Organization [facility] [place] Address [address] [place] [address] Assessment No assessment recorded. Plan of Treatment Reminders Order Date Submit Date Provider Last Modified By Organization Details Last Modified Time Details Appointments None recorded. Lab abo group + rh type, blood 2019 [facility] ([facility]), [address] [facility] [address], [place], [address], 0 08:57:33 antibody screen, serum or plasma 2019 [facility] ([facility]), [address] [facility] [address], [place], [address], 1 05:08:25 Referral None recorded. Procedures None recorded. Surgeries None recorded. Imaging US, obstetric, transvagina l 2019 [facility], [address], [address], [place], [address], 0 16:12:35 US, obstetric, transvagina l 2019 [facility], [address], [address], [place], [address], 0 15:15:03 Medication Orders None recorded. Patient TargetsNo targets recorded. Patient InstructionsNo instructions recorded. Reason for Referral None Reported. Results Created Date Observation Date Name Description Value Unit Range Abnormal Flag Note LastModifiedBy Organization Detail LastModifiedTime 12/26/19 20 12/27/2019 abo group + rh type, blood ABO type, blood bank A Not Available [facility] ([facility]) [facility] [facility] [address], [place], [address], 12/27/2019 08:57:33 12/26/19 20 12/27/2019 abo group [...] Servi iliana depar tment . Not Available [facility] ([facility]) [address] [place] [address] [address], [place], [address], 12/27/2019 08:57:33 12/26/19 20 12/30/2019 pap, LB Pap test thin prep Negati ve for Intrae pithel ial Lesion or Malign rosy normal ACCES JULIA #: [id number] [facility] e: Cervi brad/E ndoce rvica l LMP: [...] Techn ical servi iliana provi ded by [facility] iatIdeal Binary Patho logis [employer], [facility], d/b/a Path ofelia, [address] [place] [address] Prabhakar Newby MD, Labor atory Direc tor. Case revie wed and diagn osis rende red at [facility] iated Patho logis [employer], [facility], d/b/a [facility], [address] [place] [address] Prabhakar Newby MD, Labor atory Dire tor. [place]FI [place]ENTI [place] Not Available [facility] ([facility]) [address], [place], [address], 12/30/2019 14:34:07 12/26/19 20 12/30/2019 CT + [...] rmed by Assoc iated Patho logis ts, [facility], d/b/a PathG roup, [address], [place] [address] , Terry Ortega ra, , Labor atory Direc tor. Not Available [facility]) [facility]0 [facility] [address], [place], [address], 12/30/2019 14:34:08 12/26/19 20 12/30/2019 CT + [...] rmed by Assoc iated Patho logis ts, [employer], d/b/a [facility], [address], [place] [address] , Terry Ortega ra, , Labor atory Direc tor. Not Available [facility] ([facility]) [facility]0 [facility] [address], [place], [address], 12/30/2019 14:34:08 12/26/19 20 12/30/2019 CT + [...] logis ts, LLC, d/b/a [facility], [address], [place] [address] , Terry Ortega ra, DO, Labor atory Dire tor. Not Available [facility] ([facility]) [address] [facility] [address], [place], [address], 12/30/2019 14:34:08 12/26/19 20 12/26/2019 pregn rosy test, urine HCG positi ve Not Available [place] [address], [place], [address], 12/26/2019 11:46:04 08/16/19 21 08/16/2020 , dnia muhammad md interpretati on Not Available [facility] [address], [place], [address], 12/26/2019 13:19:36 08/17/19 21 08/17/2020 marcelina GRACE trans vagin al md interpretati on Not Available [facility] [address], [place], [address], 12/31/2019 14:28:56 12/26/19 20 US, dina muhammad No observ ation record ed. [email or web address], [place], [address], 12/27/2019 13:12:44 12/31/19 20 US, dina muhammad vagwillam parry No observ ation record ed. [email or web address] [address], [place], [address], 01/01/2020 20:33:18 Result Notes None recorded. Procedures Surgical History Date Name Laterality Status Provider Name and Address Organization Details Recorded Time 0 Date of Last Pap Smear completed Maryana Nj [facility] 12/26/2019 17:22:21 3 [facility] 12/26/2019 11:27:17 Imaging Results None recorded. Procedure Notes None recorded. Medical Equipment None [...] Updated DateTime 12/26/2019 154.94 cm 38.2 kg/m2 59054.66 g 136 mm[Hg] 74 mm[Hg] Giselle [facility] 0 11:44:30 Date Recorded Body height Body mass index (BMI) Body weight Systolic blood pressure Diastolic blood pressure Provider Name and Address Organization Details Last Updated DateTime 12/26/2019 154.94 cm 37.8 kg/m2 51359.47 g 123 mm[Hg] 81 mm[Hg] Maryana [facility] 0 17:20:58 Date Recorded Body height Body mass index (BMI) Body weight Systolic blood pressure Diastolic blood pressure Provider Name and Address Organization Details Last Updated DateTime 12/31/2019 154.94 cm 38.2 kg/m2 77686.66 g 118 mm[Hg] 79 mm[Hg] [facility] 0 14:42:33 Social History Question Answer Notes LastModified by Organizat ion Details LastModified Time Tobacco Smoking Status Never Smoker Giselle [facility] 12/26/2019 11:26:11 What Was The Date Of Your Most Recent Tobacco Screening? 12/26/2019 [email or web address] Information not available 12/26/2019 How Much Tobacco Do You Smoke? No [email or web address] Information not available 12/26/2019 Sex: Unknown Functional Status Question Answer Note LastModified by Organizat ion Details LastModified Time What is your level of alcohol consumption? Occasional wine Information not available 12/26/2019 Do you or have you ever used smokeless tobacco? Never used smokeless tobacco [email or web address] Information not available 12/26/2019 Do you or have you ever used e-cigarettes or vape? Never used electronic cigarettes [email or web address] Information not available 12/26/2019 What is your exercise level? Moderate Information [...] Diagnosis ICD10 Code Diagnosis Note 9399 Nona Stapleton CNM [place] [address] [address] 12/26/2019 11:21:00 01/03/2020 23:30:36 Gynecologic examination 10134126 Z01.419 test positive [id number] Z32.01 Risk factors addressed: Tobacco Cessation, Safe [...] annual well woman examinatio n and address [facility] . 9400 Zachariah Davison MD [place] [address],[place] [address] 12/26/2019 11:21:38 12/26/2019 13:26:18 Missed miscarriage [id number] O02.1 Z3A.00 9517 Fidelia Mansfield MD [place] [address] 12/26/2019 16:58:38 12/26/2019 17:56:04 Missed miscarriage [id number] O02.1 We discussed options including expectant management [...] mother with majority of time in counseling [address] Zachariah Davison MD [place] [address],[place] [address] 12/31/2019 14:03:38 12/31/2019 16:40:08 Missed miscarriage [id number] O02.1 Z3A.08 57625 Fidelia Mansfield MD [place] [address],[place] [address] 12/31/2019 14:04:38 12/31/2019 16:45:09 Missed miscarriage [id number] O02.1 We discussed options including expectant management [...] Collins Member ID Guarantor Name 12/26/2019 1 [place] [id number] Jh Littlejohn [id number] 95 Aliyah Littlejohn 12/26/2019 1 [place] [id number] Jh Littlejohn [id number] 95 Aliyah Littlejohn 12/26/2019 1 [place] [id number] Jh Littlejohn [id number] 95 Aliyah Littlejohn 12/31/2019 1 [place] [id number] Jh Littlejohn [id number] 95 Aliyah Littlejohn 12/31/2019 1 [place] [id number] Jh Littlejohn [id number] 95 Aliyah Littlejohn Notes Date Note Type Note Provider Name and Address Organization Details Recorded Time 12/26/2019 text/html No bleeding, cranberry 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 She was here for routine sneak peek ultrasound. S Donal [facility] 12/26/2019 17:53:04 12/26/2019 text/html Generic HPI TemplateReported bypatient.Notes:LMP 4-18 EDC 1-23 Nona Stapleton [facility] 01/03/2020 09:27:53 12/31/2019 text/html No complaints. N o bleeding, cramping S Donal [facility] 12/31/2019 15:23:34 OBGyn Episode Ob Episode Information Episode Created Date Number of Fetuses Patient Bloodtype Patient rh Status Prepregnancy Weight lbs Domestic Partner Domestic Partner Phone Father Name Civil Structural Designer Status 12/26/19 20 1 CLOSED Fetus Data [...] Domestic Partner Domestic Partner Phone Father Name Civil Structural Designer Status 12/26/19 20 1 CLOSED Fetus Data [...]
[2024-12-06 12:26] VITALS: BP 111/50; PULSE 65; RESP 18; TEMP 36.1; O2SAT 100
[2024-12-06 12:30] LABS: BEDSIDEPREGUCG Negative (Negative)
[2024-12-06] MEDS: LACTATED RINGERS 1,000 ML 150 ML IV CONT (12:38)
--- NOTE | 2024-12-06 12:38 | P.PNAN_ITS ---
Anes - Initial Pre Proc Eval Procedure: Operation Date: 12/06/24 13:30 Proposed Procedures p Esophagogastroduodenoscopy - Frank Luke MD Date/Time: 12/06/24 12:38 Surgeon: Frank Luke MD Pre Op Diagnosis: Epigastric Pain Patient Data Age: 29 Gender: F Height: 1.55 m Weight: 98.6 kg Last Vital Signs Temp 36.1 C L 12/06/24 12:26 Pulse 65 12/06/24 12:26 Resp 18 12/06/24 12:26 BP 111/50 L 12/06/24 12:26 Pulse Ox 100 12/06/24 12:26 O2 Del Method Room Air 12/06/24 12:26 Allergies Allergy/AdvReac Type Severity Reaction Status Date / Time No Known Allergies Allergy Verified 12/06/24 12:22 Home Medications ?Medication ?Instructions ?Recorded ?Confirmed ?Type pantoprazole 40 mg tablet,delayed 40 mg PO .qd 30 days #30 tabs 09/17/24 12/06/24 Rx release tirzepatide (weight loss) 5 mg/0.5 5 mg subcut WEEKLY 11/26/24 12/06/24 History mL subcutaneous pen injector (Zepbound) Laboratory Tests 12/06/24 12:26 POC Urine HCG, Qual Negative (Negative) Patient hx anesthesia problems: none Family hx anesthesia problems: none Results Review: All pre-operative results and documents have been reviewed as part of the pre- operative evaluation. [facility] [place] Past Medical History Medical History (Updated 12/06/24 @ 12:39 by Dawit Sethi MD) Morbid obesity with BMI of 40.0-44.9, adult Surgical History Surgical History History of tubal ligation Status post repeat low transverse section (~04/2023) Dr Shelby Status post repeat low transverse section (~08/2021) Dr Mansfield History of primary section H/O abdominal surgery exploratory History of dilation and curettage (~01/2020) for missed AB Family History Family History Mother No pertinent family history Other Hypertension Social History Social History Smoking status: Never smoker Second hand tobacco smoke exposure: No Alcohol intake: former Substance use: never Substance use type: does not use Do You Feel Safe in your Home?: Yes Lack of Transportation: No Lack of Food: Never True Current Housing: I Have Housing Concerned About Future Housing: No Difficulty Paying Gas/Electric Bills: No Difficulty Paying for Meds: No Currently Unemployed: No Education: High School Diploma/GED Difficulty w/ Childcare or Family Care: No Living arrangements: with family Occupation/Education: occupation Gender identity (if verbalized by the patient): Female Sexual Orientation (if Verbalized by the Patient): Straight or Heterosexual Spiritual care concerns: No Anes - Eval Final PreProcedure Day of Procedure 12/06/24 12:38 Patient weight: morbidly obese Heart: regular rate and rhythm Lungs: clear to auscultation Airway: Mallampati scale class II Neurological: alert and oriented Last oral intake: >/= 8 hours ASA classification: III Emergent: no Anesthetic plan: proceed Anesthesia type and monitoring: general GIVS and standard monitoring Results Review: All pre-operative results and documents have been reviewed as part of the pre- operative evaluation. Informed Consent: The patient's anesthetic plan and its attendant risks and benefits were discussed with the patient/family/POA. Questions were solicited and answers provided to the satisfaction of the patient/family/POA.
[2024-12-06] MEDS: SIMETHICONE ORAL SUSPENSION 20 MG/0.3 ML 30 ML BOTTLE 1.8 ML PO (12:42)
--- NOTE | 2024-12-06 13:17 | PM.IMHP ---
H&P: HPI History of Present Illness Date/Time: 12/06/24 13:17 Chief Complaint: Epigastric pain Narrative: the patient was seen in our office a few weeks ago for epigastric pain. She has an NSAID user and had her gallbladder removed 2 weeks ago. she is here for EGD. Review of Systems Review of Systems: All systems reviewed & are unremarkable except as noted in HPI and below PMFSH Past Medical History Medical History (Updated 12/06/24 @ 12:39 by Dawit Sethi MD) Morbid obesity with BMI of 40.0-44.9, adult Surgical History Surgical History (Reviewed 12/05/24 @ 09:22 by Gabriel Morley [facility]) History of tubal ligation Status post repeat low transverse section (~04/2023) Dr Shelby Status post repeat low transverse section (~08/2021) Dr Mansfield History of primary section H/O abdominal surgery exploratory History of dilation and curettage (~01/2020) for missed AB Family History Family History Mother No pertinent family history Other Hypertension Social History Social History Smoking status: Never smoker Second hand tobacco smoke exposure: No Alcohol intake: former Substance use: never Substance use type: does not use Do You Feel Safe in your Home?: Yes Lack of Transportation: No Lack of Food: Never True Current Housing: I Have Housing Concerned About Future Housing: No Difficulty Paying Gas/Electric Bills: No Difficulty Paying for Meds: No Currently Unemployed: No Education: High School Diploma/GED Difficulty w/ Childcare or Family Care: No Living arrangements: with family Occupation/Education: occupation Gender identity (if verbalized by the patient): Female Sexual Orientation (if Verbalized by the Patient): Straight or Heterosexual Spiritual care concerns: No Meds Home Medications and Allergies Home Medications ?Medication ?Instructions ?Recorded ?Confirmed ?Type pantoprazole 40 mg tablet,delayed 40 mg PO .qd 30 days #30 tabs 09/17/24 12/06/24 Rx release tirzepatide (weight loss) 5 mg/0.5 5 mg subcut WEEKLY 11/26/24 12/06/24 History mL subcutaneous pen injector (Zepbound) Allergies Allergy/AdvReac Type Severity Reaction Status Date / Time No Known Allergies Allergy Verified 12/06/24 12:22 Vital Signs Vital Signs - 24 hr 12/06/24 12:26 Temperature 97 F L Pulse Rate 65 Respiratory Rate 18 Blood Pressure 111/50 L Pulse Oximetry 100 Oxygen Delivery Room Air Exam Const: General: cooperative and healthy appearing Resp: Effort & Inspection: normal respiratory effort and able to speak in complete sentences Auscultation: clear to auscultation bilaterally Cardio: Rate: regular rate Rhythm: regular rhythm GI: Inspection: normal to inspection GI Palp: No No hepatosplenomegaly present Auscultation: normal bowel sounds Rectal Exam: deferred Skin: General skin exam: normal color Psych: Appearance: grossly normal Mental Status: mental status grossly normal Assessment and Plan Assessment and plan (1) Epigastric pain: Code(s): R10.13 - Epigastric pain Status: Acute Assessment and Plan: The patient is deemed a good candidate for the procedure. Consent signed. Will proceed.
[2024-12-06 13:29] VITALS: BP 113/56; PULSE 75; RESP 25; O2SAT 99
[2024-12-06 13:39] VITALS: BP 96/48; PULSE 67; RESP 20; O2SAT 97
[2024-12-06 13:49] VITALS: BP 111/56; PULSE 65; RESP 19; O2SAT 100
== END 2024-12-06 14:04 | disposition home or self-care (01) ==
PROVIDERS: Anesthesiology; PCP Internal Medicine; Referring Provider Internal Medicine Gastroenterology; Visit Provider Internal Medicine Gastroenterology
PROC: 0DJ08ZZ Inspection of Upper Intestinal Tract, Via Natural or Artificial Opening Endoscopic (ICD-10-PCS; CPT 43235; principal; 2024-12-06 13:30)
DX: K21.00 Gastro-esophageal reflux disease with esophagitis, without bleeding (principal); K31.84 Gastroparesis; E66.01 Morbid (severe) obesity due to excess calories; Z68.41 Body mass index [BMI] 40.0-44.9, adult; Z79.85 Long-term (current) use of injectable non-insulin antidiabetic drugs; Z98.890 Other specified postprocedural states; Z98.51 Tubal ligation status
CPT/HCPCS: 43235; J2003; J2704; J7120